=== PATIENT | female | born 1960 | race Hispanic/Latino ===

== ENCOUNTER 2016-06-07 13:24 | Emergency (ER) | payer MEDICARE ==
[~2016-06-07] VITALS: Ht 160 cm; Wt 102.1 kg
[~2016-06-07 13:24] MED LIST: AMOX875T2 PO; ATOR20TA66; CANA100T; INDO25CA; INSU100V5; INSU100V6; LINA5TAB; METF500T4; NF-ESOM40C; ONDA4TAB10; PARO40TA3; TRIA10.8 NSEACH
--- OUTSIDE RECORDS SUMMARY | 2016-06-07 13:39 | XMS REPORT ---
Author Author DAYRON CALERO Organization [employer] Address Unknown Phone Unavailable Care Team Providers Care Senior Python Developer Name Role Phone DAYRON CALERO CP Unavailable Allergies No Known Allergies Problems Problem Type Condition Code Onset Dates Condition Status Problem Vitamin D deficiency E55.9 Active Problem Gastroesophageal reflux disease without esophagitis K21.9 Active Problem Moderate episode of recurrent major depressive disorder F33.1 Active Problem Obesity (BMI 30-39.9) E66.9 Active Problem Rash R21 Active Problem Chondrocalcinosis M11.20 Active Problem Ringworm B35.9 Active Problem Osteoarthritis of right knee, unspecified osteoarthritis type M17.9 Active Problem jail 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 Active Problem Essential hypertension I10 Active Problem Type 2 diabetes mellitus without complications E11.9 Active Problem 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 E78.2 Active Medications Medication Code System Code Instructions Start Date End Date Status Dosage Esomeprazole Magnesium [facility] [address]-64 20 mg Orally Once a day 2 capsule Results No Known Results Summary Purpose [employer] Submission
[2016-06-07] MEDS ORDERED: TERB250T10 (14:46)
[2016-06-07] MEDS ORDERED: SERT25TA5 (14:46)
[2016-06-07] MEDS ORDERED: LISI10TA2 (14:46)
[2016-06-07] MEDS ORDERED: ESOM40CA52 (14:46)
[2016-06-07] MEDS ORDERED: PIOG45TA16 (14:46)
--- NOTE | 2016-06-07 14:57 | ED Integumentary General ---
General Chief Complaint: Allergic Reaction Stated Complaint: RASH Nursing Triage Note: SCATTERED WIDE SPREAD RASH X 3-4 WEEKS THAT IS NOT GETTING BETTER. HAS SEEN WHO HAS GIVEN HER A CREAM. PT ALSO HAS RINGWORM ON RIGHT BREAST AND CHEST THAT IS BEING TREATED. Source: patient Exam Limitations: no limitations History of Present Illness Time seen by provider: 14:52 Initial Comments To ER with a diffuse rash. The most pruritic region is on the dorsal aspect of the right forearm. She also has a rash to the chest and anterior torso that has been present for 10 years she states. She is on a topical cream she does not know the name of but states that it is only helping a little. The itching has become more intense over the past 2 days which prompted her visit here. She denies any fevers or chills, malaise, joint pains or body aches. Timing/Duration: getting worse Severity: moderate Associated Symptoms: denies symptoms Allergies and Home Medications Allergies Coded Allergies: lovastatin (Unverified Allergy, Unknown, 08/05/15) Home Medications Atorvastatin Calcium 20 Mg Tablet #30 (Reported) Esomeprazole Magnesium 40 Mg Cap #30 (Reported) Esomeprazole Magnesium 40 Mg Capsule. #30 (Reported) Indomethacin 25 Mg Capsule #60 (Reported) Insulin Determir 1,000 Units/10 Ml Soln #10 (Reported) Insulin Glargine,Hum.rec.anlog 100 Unit/1 Ml Vial #10 (Reported) Linagliptin 5 Mg Tablet #30 (Reported) Lisinopril 10 Mg Tablet #30 (Reported) Metformin HCl 500 Mg Tablet #150 (Reported) Ondansetron HCl 4 Mg Tablet #15 (Reported) Paroxetine HCl 40 Mg Tablet #90 (Reported) Pioglitazone HCl 45 Mg Tablet #30 (Reported) Sertraline HCl 25 Mg Tablet #30 (Reported) Terbinafine HCl 250 Mg Tablet #30 (Reported) Constitutional: see HPINo chills EENTM: see HPI Respiratory: no symptoms reported Cardiovascular: no symptoms reported Genitourinary: no symptoms reported Musculoskeletal: no symptoms reported Skin: see HPI Psychiatric/Neurological: No Symptoms Reported Endocrine: No Symptoms Reported Past Csswcae-Jqqood-Lbkozj Hx Patient Social History Alcohol Use: Denies Use Recreational Drug Use: No Smoking Status: Never a Smoker Recent Foreign Travel: No Contact w/Someone Who Travel: No Recent Infectious Disease Expo: No Recent Hopitalizations: No Seasonal Allergies Seasonal Allergies: No Surgeries HX Surgeries: Yes (carpal tunnel) Surgeries: Section Respiratory Hx Respiratory Disorders: No Cardiovascular Hx Cardiac Disorders: Yes Cardiac Disorders: Hypertension Neurological Hx Neurological Disorders: No Reproductive System Hx Reproductive Disorders: No Genitourinary Hx Genitourinary Disorders: No Gastrointestinal Hx Gastrointestinal Disorders: Yes Gastrointestinal Disorders: Gastroesophageal Reflux Musculoskeletal Hx Musculoskeletal Disorders: No Endocrine Hx Endocrine Disorders: Yes Endocrine Disorders: Diabetes, Insulin dep HEENT HX ENT Disorders: No Cancer Hx Cancer: No Psychosocial Hx Psychiatric Problems: No Physical Exam Vital Signs Vital Sign - Last 12Hours 06/07/16 14:40 Temp 97.9 Pulse 76 Resp 16 B/P 134/79 Pulse Ox 97 Capillary Refill : Less Than 3 Seconds General Appearance: WD/WN no apparent distress HEENT: PERRL/EOMI normal ENT inspection Neck: non-tender full range of motion Respiratory: no respiratory distress no accessory muscle use Neurologic/Psychiatric: alert normal mood/affect oriented x 3 Skin: normal color warm/dry Skin Problem Location: generalized Skin Problem Character: other (throughout the chest there are areas of what appear to be ringworm with erythematous borders, central clearing, scaling just behind the erythema at the border. These are annular type lesions) Comments The rash to the dorsal aspect of the right forearm is macular and elevated off the skin, intensely pruritic and appears different than the tinea appearance of the rash on the torso Progress/Results/Core Measures Results/Orders My Orders Orders-JULIO DO APRN Diphenhydramine Injection (Benadryl Inje (06/07/16 15:00) Maximus Prep (06/07/16 15:02) Medications Given in ED Current Medications Medications Dose Ordered Sig/Michelle Route Start Time Stop Time Status Last Admin Dose Admin Diphenhydramine HCl 25 mg ONCE ONCE IM 06/07/16 15:00 06/07/16 15:01 DC 06/07/16 15:17 25 MG Vital Signs/I&O Vital Sign - Last 12Hours 06/07/16 06/07/16 14:40 15:25 Temp 97.9 Pulse 76 77 Resp 16 16 B/P 134/79 Pulse Ox 97 96 Blood Pressure Mean: 97 Departure Communication Progress Notes She does have [facility]. A scraping of the leading edge of this annular rash has been done and sent to lab for potassium hydroxide stain. They were unable to visualize any hyphae. Given the 10 year history of symptoms in the absence of hyphae on potassium hydroxide staining alternative diagnoses to tinea should be considered. Impression Impression: Primary Impression: Rash and nonspecific skin eruption Additional Impression: Annular dermatitis Disposition: 01 HOME, SELF-CARE Condition: Stable Departure-Patient Inst. Decision time for Depature: 14:56 Referrals: [facility] (PCP/Family) Primary Care Physician Patient Instructions: Skin Rash Add. Discharge Instructions: 1. Use siug-fah-gaswkuv Benadryl as needed for itching 2. Continue your cream. Critical access hospital may wish to biopsy this lesion All discharge instructions reviewed with patient and/or family. Voiced understanding. JULIO DO APRN Jun 07, 2016 14:57 JULIO DO APRN Jun 07, 2016 14:57
[2016-06-07] MEDS ORDERED: diphenhydrAMINE 50 MG/ML INJ (BENADRYL) IM ONE (15:00)
[2016-06-07 15:25] VITALS: BP 130/77
== END 2016-06-07 15:26 | disposition home or self-care (01) ==
LOC: EDUNIT# 13:24 → ER 13:26
DX: R21 Rash and other nonspecific skin eruption (principal); I10 Essential (primary) hypertension; E11.9 Type 2 diabetes mellitus without complications; Z79.84 Long term (current) use of oral hypoglycemic drugs; Z79.4 Long term (current) use of insulin; Z79.899 Other long term (current) drug therapy
CPT/HCPCS: 87220; 96372; 99282

== ENCOUNTER 2016-11-12 17:15 | Emergency (ER) | payer MEDICARE ==
[~2016-11-12] VITALS: Ht 162.6 cm; Wt 103.4 kg
[~2016-11-12 17:15] MED LIST changes: +ESOM40CA52; +LISI10TA2; +PIOG45TA18; +SERT25TA5; +TERB250T10
--- NOTE | 2016-11-12 18:57 | Diagnostic Imaging Report ---
INDICATION: Right ankle injury. EXAMINATION: AP, oblique and lateral views of the right ankle were obtained. FINDINGS: There is an acute fracture of the distal fibula just below the level of the ankle joint, with horizontal orientation. There is no significant displacement. There are underlying degenerative changes with plantar and posterior calcaneal spurring and mild degenerative changes of the talocalcaneal joints. IMPRESSION: Acute distal fibular fracture without significant displacement. Some underlying degenerative findings are noted. Dictated by: Dictated on workstation # [id number]
[2016-11-12] MEDS ORDERED: HYDROcodone/APAP 5 MG/325 MG (LORTAB) TAB PO ONE (19:00)
[2016-11-12] MEDS ORDERED: HYDR-3812 PO (19:04)
--- NOTE | 2016-11-12 19:05 | ED Fall/Injury ---
General Chief Complaint: Lower Extremity Stated Complaint: FALL, R FOOT SWELLING Nursing Triage Note: STATES FOR X2 YEARS SHE HAS NUMBESS IN HER LEGS WHEN SHE WALKS. TODAY IT MADE HER FALL AND COMPLAINS OF PAIN RIGHT ANKLE. Source: patient Exam Limitations: no limitations History of Present Illness Time seen by provider: 18:00 Initial Comments This 56 -year-old woman presents to the emergency room with right ankle injury. She reports having numbness in her lower extremities for several years. She has diabetes and may have diabetic neuropathy. She reports this caused her to fall and rolled her right ankle this evening. She denies any other injuries other than minor abrasion to the left knee. Allergies and Home Medications Allergies Coded Allergies: lovastatin (Unverified Allergy, Unknown, 08/05/15) Home Medications Atorvastatin Calcium 20 Mg Tablet, #30 (Reported) Esomeprazole Magnesium 40 Mg Cap, #30 (Reported) Esomeprazole Magnesium 40 Mg Capsule.dr, #30 (Reported) Hydrocodone/Acetaminophen 1 Each Tablet, 1 EACH PO Q6H PRN for PAIN, #20 Prescribed by: ALEX JESUS on 11/12/16 190 Indomethacin 25 Mg Capsule, #60 (Reported) Insulin Determir 1,000 Units/10 Ml Soln, #10 (Reported) Insulin Glargine,Hum.rec.anlog 100 Unit/1 Ml Vial, #10 (Reported) Linagliptin 5 Mg Tablet, #30 (Reported) Lisinopril 10 Mg Tablet, #30 (Reported) Metformin HCl 500 Mg Tablet, #150 (Reported) Ondansetron HCl 4 Mg Tablet, #15 (Reported) Paroxetine HCl 40 Mg Tablet, #90 (Reported) Pioglitazone HCl 45 Mg Tablet, #30 (Reported) Sertraline HCl 25 Mg Tablet, #30 (Reported) Terbinafine HCl 250 Mg Tablet, #30 (Reported) Constitutional: no symptoms reported Eyes: No Symptoms Reported Ears, Nose, Mouth, Throat: no symptoms reported Respiratory: no symptoms reported Cardiovascular: no symptoms reported Gastrointestinal: no symptoms reported Genitourinary: no symptoms reported : No Musculoskeletal: see HPI Skin: no symptoms reported Psychiatric/Neurological: See HPI Past Gajteyb-Zfbpqa-Zaksdm Hx Patient Social History Alcohol Use: Denies Use Recreational Drug Use: No Smoking Status: Never a Smoker Recent Foreign Travel: No Contact w/Someone Who Travel: No Recent Infectious Disease Expo: No Recent Hopitalizations: No Seasonal Allergies Seasonal Allergies: No Surgeries HX Surgeries: Yes (carpal tunnel) Surgeries: Section Respiratory Hx Respiratory Disorders: No Cardiovascular Hx Cardiac Disorders: Yes Cardiac Disorders: High Cholesterol, Hypertension Neurological Hx Neurological Disorders: Yes Neurological Disorders: Neuropathy Reproductive System Hx Reproductive Disorders: No Genitourinary Hx Genitourinary Disorders: No Gastrointestinal Hx Gastrointestinal Disorders: Yes Gastrointestinal Disorders: Gastroesophageal Reflux Musculoskeletal Hx Musculoskeletal Disorders: No Endocrine Hx Endocrine Disorders: Yes Endocrine Disorders: Diabetes, Insulin dep HEENT HX ENT Disorders: No Cancer Hx Cancer: No Psychosocial Hx Psychiatric Problems: No Integumentary HX Skin/Integumentary Disorder: No Physical Exam Vital Signs Vital Sign - Last 12Hours 11/12/16 17:23 Temp 98.0 Pulse 88 Resp 16 B/P (MAP) 143/74 Pulse Ox 96 O2 Delivery Room Air Capillary Refill : Less Than 3 Seconds General Appearance: WD/WN, no apparent distress HEENT: PERRL/EOMI, normal ENT inspection, pharynx normal Neck: normal inspection Cardiovascular: regular rate, rhythm, no edema, no murmur Respiratory: lungs clear, normal breath sounds, no respiratory distress, no accessory muscle use Extremities: normal inspection, no pedal edema, other (right lateral ankle is swollen and ecchymotic with tenderness to palpation. Throat is normal. Distal sensation and capillary refill is intact. Pedal pulses are normal bilaterally) Neurologic/Psychiatric: fuse spooler II-XII nml as tested, no motor/sensory deficits, alert, normal mood/affect, oriented x 3 Skin: normal color, warm/dry, ecchymosis Tullos Coma Score Best Eye Response: (4) Open Spontaneously Best Verbal Response: (5) Oriented Best Motor Response: (6) Obeys Commands Tullos Total: 15 Progress/Results/Core Measures Results/Orders My Orders Orders - ALEX RASCON MD Ankle, Right, 3 Views (11/12/16 18:14) Hydrocodone/Apap 5/325 Tablet (Lortab 5 (11/12/16 19:00) Medications Given in ED Current Medications Medications Dose Ordered Sig/Michelle Route Start Time Stop Time Status Last Admin Dose Admin Acetaminophen/ Hydrocodone Bitart 1 tab ONCE ONCE PO 11/12/16 19:00 11/12/16 19:01 DC 11/12/16 19:13 1 TAB Vital Signs/I&O Vital Sign - Last 12Hours 11/12/16 11/12/16 17:23 19:15 Temp 98.0 98.0 Pulse 88 88 Resp 16 16 B/P (MAP) 143/74 Pulse Ox 96 96 O2 Delivery Room Air Blood Pressure Mean: 97 Progress Note : Progress Note X-ray revealed a right distal fibula fracture. Ankle was wrapped in an [place] wrap. A boot was applied and crutches were dispensed. Hydrocodone was given for pain. Diagnostic Imaging Diagonstic Imaging: Xray Plain Films/CT/US/NM/MRI: ankle Comments Ankle x-ray viewed by me and report reviewed. See report below: NAME: HARRY ELENA [facility] REC#: [id number] PT STATUS: DEP ER : 1960 PHYSICIAN: ALEX RASCON MD ADMIT DATE: 11/12/16/ER Signed Date of Exam: 11/12/16 ANKLE, RIGHT, 3 VIEWS INDICATION: Right ankle injury. EXAMINATION: AP, oblique and lateral views of the right ankle were obtained. FINDINGS: There is an acute fracture of the distal fibula just below the level of the ankle joint, with horizontal orientation. There is no significant displacement. There are underlying degenerative changes with plantar and posterior calcaneal spurring and mild degenerative changes of the talocalcaneal joints. IMPRESSION: Acute distal fibular fracture without significant displacement. Some underlying degenerative findings are noted. Dictated by: Dictated on workstation # [id number] Dict: 11/12/161848 Trans: 11/12/161912 Interpreted by: FABIENNE PA MD Electronically signed by: FABIENNE PA MD 11/12/161912 Departure Impression Impression: Primary Impression: Fracture of distal fibula Qualified Codes: S82.831A - Other fracture of upper and lower end of right fibula, initial encounter for closed fracture Disposition: 01 HOME, SELF-CARE Condition: Improved Departure-Patient Inst. Decision time for Depature: 19:00 Referrals: [facility] (PCP/Family) Primary Care Physician MICHELET VIERA MICHAEL P MD Patient Instructions: Ankle Fracture (DC) Add. Discharge Instructions: Rest, icing in 20 minute intervals, and elevation should help with pain and swelling. Use hydrocodone as prescribed for pain. Use of a stool softener such as Colace while on narcotic pain medications will help prevent constipation. Follow-up with an orthopedic surgeon as soon as possible. You may contact [facility] for orthopedic follow-up or contact an orthopedic doctor of your choice. Some options are listed below. Use the boot as much as possible, especially when up and active. Use the crutches to help with weightbearing. Return to care if you have other problems or concerns. All discharge instructions reviewed with patient and/or family. Voiced understanding. Scripts Hydrocodone/Acetaminophen (Hydrocodon -Acetaminophen 5-325) 1 Each Tablet 1 EACH PO Q6H Y for PAIN, #20 TAB Prov: ALEX RASCON MD 11/12/16 Copy Copies To 1: MEÑO INFANTE JOSHUA T MD Nov 12, 2016 19:04
[2016-11-12 19:15] VITALS: BP 143/74
== END 2016-11-12 19:14 | disposition home or self-care (01) ==
LOC: EDUNIT# 17:15 → ER 17:17
DX: S82.831A Other fracture of upper and lower end of right fibula, initial encounter for closed fracture (principal); E11.40 Type 2 diabetes mellitus with diabetic neuropathy, unspecified; K21.9 Gastro-esophageal reflux disease without esophagitis; E78.00 Pure hypercholesterolemia, unspecified; I10 Essential (primary) hypertension; Z79.84 Long term (current) use of oral hypoglycemic drugs; Z79.4 Long term (current) use of insulin; W18.30XA Fall on same level, unspecified, initial encounter
CPT/HCPCS: 73610; 99283

== ENCOUNTER → 2017-10-26 | Outpatient (CLI) | payer MEDICARE, OTHER ==
[~2017-10-26] MED LIST changes: +ACHD5005 PO; -INDO25CA; +INDO25CA15; -METF500T4; +METF500T5; -PIOG45TA18; +PIOG45TA65; -TERB250T10; +TERB250T16
--- NOTE | 2017-10-26 13:17 | Diagnostic Imaging Report ---
PROCEDURE: CT urinary tract, rule out kidney stone. TECHNIQUE: Multiple contiguous axial images were obtained through the abdomen and pelvis without the use of intravenous contrast. INDICATION: Increasing right flank pain for three days. COMPARISON: No prior studies are available for comparison. FINDINGS: The lung bases are clear. The liver is unremarkable. There appears to be a small stone within the gallbladder. No bile duct dilatation is seen. The pancreas and spleen are unremarkable. No adrenal mass is identified. The right kidney does contain a 2.3 cm fat-containing mass in the upper pole, suggestive of an angiomyolipoma. No renal calculi or hydronephrosis is identified. The aorta is nonaneurysmal. The small and large bowel loops are normal in caliber. Bladder and uterus are unremarkable. Note is made of a small fat-containing umbilical hernia. There is no ascites. IMPRESSION: 1. Cholelithiasis. 2. Fat-containing umbilical hernia. 3. No evidence of urinary tract calculi or obstruction. 4. 2.3 cm fat-containing right upper pole renal mass, suggestive of an angiomyolipoma. Dictated by: Dictated on workstation # [id number]
== END ==
LOC: RAD 12:29
PROVIDERS: ATTEND Nurse Practitioner Family
DX: K80.20 Calculus of gallbladder without cholecystitis without obstruction (principal); K42.9 Umbilical hernia without obstruction or gangrene; N28.89 Other specified disorders of kidney and ureter
CPT/HCPCS: 74176

== ENCOUNTER 2018-01-01 08:13 | Emergency (ER) | payer MEDICARE, MEDICAID ==
[~2018-01-01] VITALS: Ht 162.6 cm; Wt 95.3 kg
[~2018-01-01 08:13] MED LIST changes: +METF-397; -METF500T5
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
--- OUTSIDE RECORDS SUMMARY | 2018-01-01 08:22 | XMS REPORT ---
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
--- OUTSIDE RECORDS SUMMARY | 2018-01-01 08:22 | XMS REPORT ---
Author Author DAYRON CALERO Organization [facility] Address [address] [place] [address] Care Team Providers Care Welding Machine Operator Gas Name Role Phone ABDIAS DAYRON Unavailable PROBLEMS Type Condition ICD9-CM Code SDQ31-TO Code Onset Dates Condition Status SNOMED Code Problem long term 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 Active 711001958 Problem Moderate episode of recurrent major depressive disorder F33.1 Active 26656621 Problem 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 E78.2 Active 955893623 Problem Gastroesophageal reflux disease without esophagitis K21.9 Active 322172430 Problem Obesity (BMI 30-39.9) E66.9 Active 357936283 Problem Essential hypertension I10 Active 51392222 Problem Vitamin D deficiency E55.9 Active 51521720 Problem Type 2 diabetes mellitus with diabetic neuropathy, unspecified E11.40 Active 85641458 Problem Polyneuropathy associated with underlying disease G63 Active 692570575 Problem Allergic contact dermatitis, unspecified trigger L23.9 Active 622477291 Problem Chondrocalcinosis M11.20 Active 045038607 Problem Primary osteoarthritis of both knees M17.0 Active 496118402 Problem Non compliance with medical treatment Z91.19 Active 7882005 ALLERGIES Unknown Allergies SOCIAL HISTORY No smoking Hx information available PLAN OF CARE VITAL SIGNS MEDICATIONS Unknown Medications RESULTS No Results PROCEDURES No Known procedures IMMUNIZATIONS No Known Immunizations
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
--- OUTSIDE RECORDS SUMMARY | 2018-01-01 08:22 | XMS REPORT ---
Author Author [facility]ITNEY [facility] Address [address] [place] [address] Care Team Providers Care Bonbon Cream Warmer Name Role Phone CLARITA WHITNEY Unavailable PROBLEMS Type Condition ICD9-CM Code EII09-AL Code Onset Dates Condition Status SNOMED Code Problem Rash R21 Active 229262937 Problem Moderate episode of recurrent major depressive disorder F33.1 Active 40348021 Problem Vitamin D deficiency E55.9 Active 66105737 Assessment Right otitis media, unspecified chronicity, unspecified otitis media type H66.91 Dec, Active 58978222 Problem Obesity (BMI 30-39.9) E66.9 Active 489994868 Problem Ringworm B35.9 Active 07537955 Problem Type 2 diabetes mellitus without complications E11.9 Active 693086749 Problem Essential hypertension I10 Active 35059094 Problem Gastroesophageal reflux disease without esophagitis K21.9 Active 013971797 Problem 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 E78.2 Active 405312788 Problem 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 Active 774706866 ALLERGIES Unknown Allergies SOCIAL HISTORY No smoking Hx information available PLAN OF CARE VITAL SIGNS Height 64 in 2015-12-29 Weight 215 lbs 2015-12-29 Heart Rate 84 bpm 2015-12-29 Respiratory Rate 20 2015-12-29 BMI 36.90 kg/m2 2015-12-29 Blood pressure systolic 136 mmHg 2015-12-29 Blood pressure diastolic 74 mmHg 2015-12-29 MEDICATIONS Medication Instructions Dosage Frequency Start Date End Date Duration Status Actos 45 MG Orally Once a day 1 tablet 24h Active Paroxetine HCl 40 mg Orally Once a day 1 tablet in the morning 24h Active Atorvastatin Calcium 20 mg Orally Once a day 1 tablet 24h Active Lisinopril 10 mg Orally Once a day 1 tablet 24h Active BD Insulin Syringe Ultrafine 31G X 15/64 as directed Sep, Active Amoxicillin 500 MG Orally every 12 hrs 2 capsules 12h Dec,Dec 10 day(s) Active Cholecalciferol 2000 UNIT Orally Once a day 1 capsule 24h Oct, Dec, 30 day(s) Active Indomethacin 25 MG Orally Twice a day 1 capsule with food or milk 12h Dec, Jan, 30 day(s) Active Accu-Chek Compact Plus Care as directed Sep, Active Metformin HCl 500 MG Orally with breakfast, 1 tablet at midday, & 2 tablets with dinner 2 tablets Active Tradjenta 5 mg Orally Once a day 1 tablet 24h Oct, Active Accu-Chek Softclix Lancets as directed Sep, Active Fluconazole 150 MG Orally once weekly x 4 weeks 1 tablet Dec, Active Accu-Chek Compact Plus as directed Sep, Active Triamcinolone Acetonide 0.1 % Externally Twice a day apply thin layer to rash 12h Sep, Active Lantus 100 UNIT/ML Subcutaneous Once a day 36 units daily 24h Oct, Active Esomeprazole Magnesium 40 mg Orally Once a day 1 capsule 24h Active Ketoconazole 2 % Externally twice a day apply thin layer to the areas on chest and back 12h Oct, Active RESULTS No Results PROCEDURES Procedure Date Ordered Related Diagnosis Body Site Office Visit, Est Pt., Level 3 Dec 29, 2015 IMMUNIZATIONS No Known Immunizations
--- OUTSIDE RECORDS SUMMARY | 2018-01-01 08:23 | XMS REPORT ---
Author ZACHARY Mckee [facility] eClinicalWorks Address Unknown Phone Unavailable Care Team Providers Care Floating Labor Gang Supervisor Name Role Phone ZACHARY DARLING CP Unavailable Allergies, Adverse Reactions, Alerts Substance Reaction Event Type Lovastatin Info Not Available Drug Allergy Problems Problem Type Condition Code Onset Dates Condition Status Problem Rash R21 Active Problem Moderate episode of recurrent major depressive disorder F33.1 Active Problem Vitamin D deficiency E55.9 Active Assessment Viral gastroenteritis A08.4 Active Problem Obesity (BMI 30-39.9) E66.9 Active Problem Ringworm B35.9 Active Problem Type 2 diabetes mellitus without complications E11.9 Active Problem Chondrocalcinosis M11.20 Active Problem Essential hypertension I10 Active Problem Gastroesophageal reflux disease without esophagitis K21.9 Active Problem 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 E78.2 Active Problem 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 inspector 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 Active Medications Medication Code System Code Instructions Start Date End Date Status Dosage Mometasone Furoate [facility] [address]-15 0.1 % Externally Once a day apply once daily as needed for ear itching and flaking Fluocinonide-E [facility] [address]-58 0.05 % Externally 2 times a day apply sparingly to rash on breast Paroxetine HCl [facility] [address]-78 40 mg Orally Once a day 1 tablet in the morning Actos [facility] [address]-27 45 MG Orally Once a day 1 tablet Esomeprazole Magnesium [facility] [address]-92 40 mg Orally Once a day 1 capsule Accu-Chek Compact Plus [facility] [address]-47 In Vitro October 02, 2015 as directed Zofran [facility] [address]-52 4 MG Orally every 8 hours as needed Jan 29, 2016 1 tablets Atorvastatin Calcium [facility] [address]-04 20 mg Orally Once a day 1 tablet Theraflu Cold/Cough Daytime [facility] [address]-14 10-20 MG Orally every 4 hrs 1 strip on the tongue and allow to dissolve as needed Ciclopirox [facility] [address]-73 0.77 % Externally Twice a day Jan 26, 2016 apply thin layer to areas twice a day Metformin HCl [facility] [address]-06 500 MG Orally with breakfast, 1 tablet at midday, & 2 tablets with dinner 2 tablets Tradjenta [facility] [address]-40 5 mg Orally Once a day November 06, 2015 1 tablet Accu-Chek Softclix Lancets [facility] [address]-80 October 02, 2015 as directed Accu-Chek Compact Plus Care [facility] [address]-56 October 02, 2015 as directed Lantus [facility] [address]-41 100 UNIT/ML Subcutaneous Once a day November 06, 2015 36 units daily Terbinafine HCl [facility] [address]-03 250 MG Orally Once a day Jan 26, 2016 1 tablet BD Insulin Syringe Ultrafine [facility] 8290-089082 31G X 15/64 October 02, 2015 as directed Lisinopril [facility] [address]-29 10 mg Orally Once a day 1 tablet Fluconazole [facility] [address]-37 150 MG Orally once weekly x 4 weeks Dec 25, 2015 1 tablet Procedures Procedure Coding System Code Date Office Visit, Est Pt., Level 3 CPT-4 86817 Jan 29, 2016 [facility] VISIT ESTABLISHED PATIENT CPT-4 G0467 Jan 29, 2016 Vital Signs Date/Time: Jan 29, 2016 Cardiac Monitoring Heart Rate 92 bpm Weight 217.4 lbs Height 64 in BMI 37.31 Index Blood Pressure Diastolic 78 mmHg Blood Pressure Systolic 116 mmHg Results No Known Results Summary Purpose eClinicalWorks Submission
--- OUTSIDE RECORDS SUMMARY | 2018-01-01 08:23 | XMS REPORT ---
Author Author AL RAÚL Organization [facility] Address [address] [place] [address] Care Team Providers Care Kettle Cleaner Name Role Phone ALTASHA GONZALEZHANY Unavailable PROBLEMS Type Condition ICD9-CM Code CKR62-SK Code Onset Dates Condition Status SNOMED Code Problem assisted 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 Active 167146509 Problem Moderate episode of recurrent major depressive disorder F33.1 Active 69542874 Problem 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 E78.2 Active 021897740 Problem Gastroesophageal reflux disease without esophagitis K21.9 Active 936484342 Problem Obesity (BMI 30-39.9) E66.9 Active 750943194 Problem Essential hypertension I10 Active 57106026 Problem Vitamin D deficiency E55.9 Active 33765862 Problem Type 2 diabetes mellitus with diabetic neuropathy, unspecified E11.40 Active 66087466 Problem Polyneuropathy associated with underlying disease G63 Active 603330415 Problem Allergic contact dermatitis, unspecified trigger L23.9 Active 522034910 Problem Chondrocalcinosis M11.20 Active 846057907 Problem Primary osteoarthritis of both knees M17.0 Active 607660475 Problem Non compliance with medical treatment Z91.19 Active 7307928 ALLERGIES Substance Reaction Event Type Date Status Lovastatin Unknown Drug Allergy Apr, Active SOCIAL HISTORY No smoking Hx information available PLAN OF CARE Activity Details Follow Up 4 Weeks with Cam Lindquist Reason:r/u rash VITAL SIGNS Height 64 in 2016-05-17 Weight 215.0 lbs 2016-05-17 Temperature 98.0 degrees Fahrenheit 2016-05-17 Heart Rate 78 bpm 2016-05-17 Respiratory Rate 18 2016-05-17 BMI 36.90 kg/m2 2016-05-17 Blood pressure systolic 146 mmHg 2016-05-17 Blood pressure diastolic 80 mmHg 2016-05-17 MEDICATIONS Medication Instructions Dosage Frequency Start Date End Date Duration Status Accu-Chek Compact Plus Care as directed Sep, Active Accu-Chek Compact Plus as directed Sep, Active Actos 45 MG Orally Once a day 1 tablet 24h Active Accu-Chek Softclix Lancets as directed Sep, Active Lisinopril 10 mg Orally Once a day 1 tablet 24h Active Nexium 40 MG Orally Once a day 1 capsule 24h Mar, 30 day(s) Active Lantus 100 UNIT/ML Subcutaneous Once a day 36 units daily 24h Oct, Active Atorvastatin Calcium 20 mg Orally Once a day 1 tablet 24h Active Tradjenta 5 mg Orally Once a day 1 tablet 24h Oct, Active Metformin HCl 500 MG Orally with breakfast, 1 tablet at midday, & 2 tablets with dinner 2 tablets Active Fluconazole 150 MG Orally once weekly 1 tablet Apr, May, 28 days Active BD Insulin Syringe Ultrafine 31G X 15/64 as directed Sep, Active Sertraline HCl 25 MG Orally Once a day 1 tablet daily at bedtime 24h Mar 30 days Active Ibuprofen 800 MG Orally Three times a day 1 tablet 8h Mar,Jun 90 days Active RESULTS Name Result Date Reference Range CBC 2016-05-17 WBC 11.8 3.4-10.8 RBC 4.96 3.77-5.28 Hemoglobin 13.4 11.1-15.9 Hematocrit 41.3 34.0-46.6 MCV 83 79-97 MCH 27.0 26.6-33.0 MCHC 32.4 31.5-35.7 RDW 13.7 12.3-15.4 Platelets 313 150-379 Neutrophils 65 Lymphs 28 Monocytes 6 Eos 1 Basos 0 Neutrophils (Absolute) 7.7 1.4-7.0 Lymphs (Absolute) 3.3 0.7-3.1 Monocytes(Absolute) 0.7 0.1-0.9 Eos (Absolute) 0.2 0.0-0.4 Baso (Absolute) 0.0 0.0-0.2 Immature Granulocytes 0 Immature Grans (Abs) 0.0 0.0-0.1 LIVER PANEL (LFT) 2016-05-17 Protein, Total, Serum 7.0 6.0-8.5 Albumin, Serum 4.1 3.5-5.5 Bilirubin, Total <0.2 0.0-1.2 Bilirubin, Direct 0.09 0.00-0.40 Alkaline Phosphatase, S 111 39-117 AST (SGOT) 56 0-40 ALT (SGPT) 59 0-32 PROCEDURES Procedure Date Ordered Related Diagnosis Body [facility], 2016 [facility] VISIT ESTABLISHED PATIENT May 17, 2016 CHUCK, ROUTINE* May 17, 2016 Office Visit, Est Pt., Level 3 May 17, 2016 IMMUNIZATIONS No Known Immunizations
--- OUTSIDE RECORDS SUMMARY | 2018-01-01 08:23 | XMS REPORT ---
Author Author RAÚL MELENDEZ Organization [facility] Address [address] [place] [address] Care Team Providers Care Asian Studies Professor Name Role Phone RAÚL MELENDEZ Unavailable PROBLEMS Type Condition ICD9-CM Code IZX13-KO Code Onset Dates Condition Status SNOMED Code Problem terminal supervisor 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 Active 360517099 Problem Moderate episode of recurrent major depressive disorder F33.1 Active 62136371 Problem 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 E78.2 Active 985721927 Problem Gastroesophageal reflux disease without esophagitis K21.9 Active 600671894 Problem Obesity (BMI 30-39.9) E66.9 Active 432716505 Problem Essential hypertension I10 Active 90441564 Problem Vitamin D deficiency E55.9 Active 95122539 Problem Type 2 diabetes mellitus with diabetic neuropathy, unspecified E11.40 Active 89280869 Problem Polyneuropathy associated with underlying disease G63 Active 881309518 Problem Allergic contact dermatitis, unspecified trigger L23.9 Active 579986809 Problem Chondrocalcinosis M11.20 Active 301074820 Problem Primary osteoarthritis of both knees M17.0 Active 355294873 Problem Non compliance with medical treatment Z91.19 Active 9350794 ALLERGIES Unknown Allergies SOCIAL HISTORY No smoking Hx information available PLAN OF CARE VITAL SIGNS MEDICATIONS Unknown Medications RESULTS No Results PROCEDURES No Known procedures IMMUNIZATIONS No Known Immunizations
--- OUTSIDE RECORDS SUMMARY | 2018-01-01 08:23 | XMS REPORT ---
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 Active 427161518 Problem Moderate episode of recurrent major depressive disorder F33.1 Active 18561774 Problem 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 E78.2 Active 608023016 Problem Gastroesophageal reflux disease without esophagitis K21.9 Active 601814817 Problem Obesity (BMI 30-39.9) E66.9 Active 854634573 Problem Essential hypertension I10 Active 10584738 Problem Vitamin D deficiency E55.9 Active 50662710 Problem Type 2 diabetes mellitus with diabetic neuropathy, unspecified E11.40 Active 27589355 Problem Polyneuropathy associated with underlying disease G63 Active 595434804 Problem Allergic contact dermatitis, unspecified trigger L23.9 Active 578731455 Problem Chondrocalcinosis M11.20 Active 706742047 Problem Primary osteoarthritis of both knees M17.0 Active 758122267 Problem Non compliance with medical treatment Z91.19 Active 5468161 ALLERGIES Substance Reaction Event Type Date Status Lovastatin Unknown Drug Allergy May, Active SOCIAL HISTORY Never Assessed PLAN OF CARE Activity Details Follow Up 4 Weeks Reason:depression VITAL SIGNS Height 64 in 2016-06-14 Weight 215.9 lbs 2016-06-14 Temperature 97.4 degrees Fahrenheit 2016-06-14 Heart Rate 88 bpm 2016-06-14 Respiratory Rate 18 2016-06-14 BMI 37.06 kg/m2 2016-06-14 Blood pressure systolic 122 mmHg 2016-06-14 Blood pressure diastolic 78 mmHg 2016-06-14 MEDICATIONS Medication Instructions Dosage Frequency Start Date End Date Duration Status Triamcinolone Acetonide 0.025 % Externally Twice a day apply thin layer to chest and legs 12h May, 10 days Active Trazodone HCl 50 mg Orally Once a day 1 tablet at bedtime as needed 24h May, 30 day(s) Active Glimepiride 2 MG Orally Once a day 1 tablet 24h May, 90 days Active Actos 45 MG Orally Once a day 1 tablet 24h 90 days Active Esomeprazole Magnesium 20 mg Orally Once a day 2 capsule 24h 90 days Active BD Insulin Syringe Ultrafine 31G X 15/64 subcutaneously Once a day as directed 24h Sep, 30 days Active Nexium 40 MG Orally Once a day 1 capsule 24h 30 Active Atorvastatin Calcium 20 mg Orally Once a day 1 tablet 24h 90 days Active Accu-Chek Compact Plus Care as directed Sep, Active Accu-Chek Compact Plus as directed Sep, Active Terbinafine HCl 250 MG Orally Once a day 1 tablet 24h 30 Active Lisinopril 10 mg Orally Once a day 1 tablet 24h 90 days Active Lantus 100 UNIT/ML Subcutaneous Once a day 40 units daily 24h Oct, 30 days Active Accu-Chek Softclix Lancets as directed Sep, Active Metformin HCl 500 mg Orally with breakfast, 1 tablet at midday, & 2 tablets with dinner 2 tablets 90 days Active Sertraline HCl 25 MG Orally Once a day 1 tablet daily at bedtime 24h 30 Active RESULTS Name Result Date Reference Range A1C (IN HOUSE) 2016-06-14 A1C IN HOUSE 11.5 4.3 - 5.6 % Previous A1c 9.0 Lot [id number] Exp date MICROALBUMIN, URINE (IN HOUSE) 2016-06-14 MICROALBUMIN Normal Lot # [id number] Exp date 11/2016 Clarity Clear Color Yellow ALB 10mg/L CRE 50mg/dL A:C (IN HOUSE) <30mg/g Control Control Lot # Exp date PROCEDURES Procedure Date Ordered Result Body Site GLYCATED HEMOGLOBIN TEST Jun 14, 2016 MICROALBUMIN, SEMIQUANT Jun 14, 2016 [facility] VISIT ESTABLISHED PATIENT Jun 14, 2016 IMMUNIZATIONS No Known Immunizations MEDICAL (GENERAL) HISTORY Type Description Date Medical History Diabetes Type 2 Medical History Hypertension Medical History Hyperlipidemia Medical History Depression Medical History acid reflux Medical History vitamin D deficiency Medical History Right fracture of distal fibula Surgical History 2 C-Sections Hospitalization History x2
--- OUTSIDE RECORDS SUMMARY | 2018-01-01 08:23 | XMS REPORT ---
Author Author DAYRON CALERO Organization [facility] Address [address] [place] [address] Care Team Providers Care Scene And Lighting Design Lecturer Name Role Phone CALERONINO CarringtonELE Unavailable PROBLEMS Type Condition ICD9-CM Code [id number] Code Onset Dates Condition Status SNOMED Code Problem Rash R21 Active 110899141 Problem Moderate episode of recurrent major depressive disorder F33.1 Active 08327253 Problem Vitamin D deficiency E55.9 Active 62188248 Assessment Tinea corporis B35.4 Dec, Active 95267871 Assessment Chondrocalcinosis M11.20 Dec, Active 340461966 Problem Obesity (BMI 30-39.9) E66.9 Active 569896905 Problem Ringworm B35.9 Active 72845875 Problem Type 2 diabetes mellitus without complications E11.9 Active 944962812 Problem Essential hypertension I10 Active 48670823 Problem Gastroesophageal reflux disease without esophagitis K21.9 Active 769110449 Problem 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 E78.2 Active 530181399 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 Active 218108188 ALLERGIES Substance Reaction Event Type Date Status Lovastatin Unknown Drug Allergy Dec, Active SOCIAL HISTORY No smoking Hx information available PLAN OF CARE VITAL SIGNS Height 64 in 2015-12-25 Weight 218.0 lbs 2015-12-25 Heart Rate 80 bpm 2015-12-25 Respiratory Rate 22 2015-12-25 BMI 37.42 kg/m2 2015-12-25 Blood pressure systolic 140 mmHg 2015-12-25 Blood pressure diastolic 82 mmHg 2015-12-25 MEDICATIONS Medication Instructions Dosage Frequency Start Date End Date Duration Status BD Insulin Syringe Ultrafine 31G X 15 as directed Sep, Active Tradjenta 5 mg Orally Once a day 1 tablet 24h Oct, Active Lisinopril 10 mg Orally Once a day 1 tablet 24h Active Actos 45 MG Orally Once a day 1 tablet 24h Active Paroxetine HCl 40 mg Orally Once a day 1 tablet in the morning 24h Active Triamcinolone Acetonide 0.1 % Externally Twice a day apply thin layer to rash 12h Sep, Active Indomethacin 25 MG Orally Twice a day 1 capsule with food or milk 12h Dec, Jan, 30 day(s) Active Calmoseptine 0.44-20.625 % Externally Once a day apply thin layer to area under breast daily 24h Oct, Active Accu-Chek Compact Plus as directed Sep, Active Cholecalciferol 2000 UNIT Orally Once a day 1 capsule 24h Oct, Dec, 30 day(s) Active Metformin HCl 500 MG Orally with breakfast, 1 tablet at midday, & 2 tablets with dinner 2 tablets Active Accu-Chek Compact Plus Care as directed Sep, Active Ketoconazole 2 % Externally twice a day apply thin layer to the areas on chest and back 12h Oct, Active Atorvastatin Calcium 20 mg Orally Once a day 1 tablet 24h Active Esomeprazole Magnesium 40 mg Orally Once a day 1 capsule 24h Active Lantus 100 UNIT/ML Subcutaneous Once a day 36 units daily 24h Oct, Active Accu-Chek Softclix Lancets as directed Sep, Active Fluconazole 150 MG Orally once weekly x 4 weeks 1 tablet Dec, Active RESULTS Name Result Date Reference Range PHOSPHORUS 2015-12-25 Phosphorus, Serum 4.2 2.5-4.5 PTH (INTACT) 2015-12-25 PTH, Intact 38 15-65 IRON + TIBC 2015-12-25 Iron Bind.Cap.(TIBC) 441 250-450 UIBC 395 131-425 Iron, Serum 46 27-159 Iron Saturation 10 15-55 MAGNESIUM, SERUM 2015-12-25 Magnesium, Serum 1.9 1.6-2.3 FERRITIN, SERUM 2015-12-25 Ferritin, Serum 27 15-150 CMP 2015-12-25 Glucose, Serum 159 65-99 BUN 10 6-24 Creatinine, Serum 0.64 0.57-1.00 eGFR If NonAfricn Am 102 >59 eGFR If Africn Am 118 >59 BUN/Creatinine Ratio 16 9-23 Sodium, Serum 139 134-144 Potassium, Serum 4.5 3.5-5.2 Chloride, Serum 95 97-108 Carbon Dioxide, Total 27 18-29 Calcium, Serum 9.5 8.7-10.2 Protein, Total, Serum 7.9 6.0-8.5 Albumin, Serum 4.7 3.5-5.5 Globulin, Total 3.2 1.5-4.5 A/G Ratio 1.5 1.1-2.5 Bilirubin, Total 0.3 0.0-1.2 Alkaline Phosphatase, S 98 39-117 AST (SGOT) 29 0-40 ALT (SGPT) 33 0-32 PROCEDURES Procedure Date Ordered Related Diagnosis [facility] VENIPUNCT, ROUTINE* Dec 25, 2015 Office Visit, Est Pt., Level 3 Dec 25, 2015 [facility] VISIT ESTABLISHED PATIENT Dec 25, 2015 IMMUNIZATIONS No Known Immunizations
--- OUTSIDE RECORDS SUMMARY | 2018-01-01 08:23 | XMS REPORT ---
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 Active 655758764 Problem Moderate episode of recurrent major depressive disorder F33.1 Active 40151957 Problem 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 E78.2 Active 205355336 Problem Gastroesophageal reflux disease without esophagitis K21.9 Active 986172171 Problem Obesity (BMI 30-39.9) E66.9 Active 645157481 Problem Essential hypertension I10 Active 05237309 Problem Vitamin D deficiency E55.9 Active 20146787 Problem Type 2 diabetes mellitus with diabetic neuropathy, unspecified E11.40 Active 07154437 Problem Polyneuropathy associated with underlying disease G63 Active 455448316 Problem Allergic contact dermatitis, unspecified trigger L23.9 Active 958481145 Problem Chondrocalcinosis M11.20 Active 705319582 Problem Primary osteoarthritis of both knees M17.0 Active 775766902 Problem Non compliance with medical treatment Z91.19 Active 0199014 ALLERGIES No Information SOCIAL HISTORY Never Assessed PLAN OF CARE VITAL SIGNS MEDICATIONS Medication Instructions Dosage Frequency Start Date End Date Duration Status Glucocard Expression Test - In Vitro 2 times a day as directed Jun, 25 days Active RESULTS No Results PROCEDURES No Known procedures IMMUNIZATIONS No Known Immunizations MEDICAL (GENERAL) HISTORY Type Description Date Medical History Diabetes Type 2 Medical History Hypertension Medical History Hyperlipidemia Medical History Depression Medical History acid reflux Medical History vitamin D deficiency Medical History Right fracture of distal fibula Surgical History 2 C-Sections Hospitalization History x2
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
--- OUTSIDE RECORDS SUMMARY | 2018-01-01 08:23 | XMS REPORT ---
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 Active 916023376 Problem Moderate episode of recurrent major depressive disorder F33.1 Active 74509231 Problem 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 E78.2 Active 101563263 Problem Gastroesophageal reflux disease without esophagitis K21.9 Active 433995807 Problem Obesity (BMI 30-39.9) E66.9 Active 041753314 Problem Essential hypertension I10 Active 56822989 Problem Vitamin D deficiency E55.9 Active 71812160 Problem Type 2 diabetes mellitus with diabetic neuropathy, unspecified E11.40 Active 75460935 Problem Polyneuropathy associated with underlying disease G63 Active 761343387 Problem Allergic contact dermatitis, unspecified trigger L23.9 Active 746292752 Problem Chondrocalcinosis M11.20 Active 720880280 Problem Primary osteoarthritis of both knees M17.0 Active 256291428 Problem Non compliance with medical treatment Z91.19 Active 2174184 ALLERGIES No Information SOCIAL HISTORY Never Assessed PLAN OF CARE VITAL SIGNS MEDICATIONS Medication Instructions Dosage Frequency Start Date End Date Duration Status Metformin HCl 500 MG Orally with breakfast, 1 tablet at midday, & 2 tablets with dinner 2 tablets 30 days Active RESULTS No Results PROCEDURES [...]
--- OUTSIDE RECORDS SUMMARY | 2018-01-01 08:24 | XMS REPORT ---
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 Active 483024021 Problem Obesity (BMI 30-39.9) E66.9 Active 778485978 Problem Vitamin D deficiency E55.9 Active 22166300 Problem Moderate episode of recurrent major depressive disorder F33.1 Active 96368663 Problem Gastroesophageal reflux disease without esophagitis K21.9 Active 587445306 Problem Polyneuropathy associated with underlying disease G63 Active 746354975 Problem Type 2 diabetes mellitus with diabetic neuropathy, unspecified E11.40 Active 34327997 Problem Non compliance with medical treatment Z91.19 Active 5091250 Problem Chondrocalcinosis M11.20 Active 327657962 Problem Primary osteoarthritis of both knees M17.0 Active 249149574 Problem Allergic contact dermatitis, unspecified trigger L23.9 Active 830923849 ALLERGIES Unknown Allergies SOCIAL HISTORY No smoking Hx information available PLAN OF CARE VITAL SIGNS MEDICATIONS Medication Instructions Dosage Frequency Start Date End Date Duration Status Esomeprazole Magnesium 20 mg Orally Once a day 2 capsule 24h 7 days Active Nexium 40 MG Orally Once a day 1 capsule 24h Mar, 30 day(s) Active RESULTS No Results PROCEDURES No Known procedures IMMUNIZATIONS No Known Immunizations
--- OUTSIDE RECORDS SUMMARY | 2018-01-01 08:24 | XMS REPORT ---
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 Active 078982089 Problem Moderate episode of recurrent major depressive disorder F33.1 Active 32267995 Problem 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 E78.2 Active 925611576 Problem Gastroesophageal reflux disease without esophagitis K21.9 Active 849473778 Problem Obesity (BMI 30-39.9) E66.9 Active 909031536 Problem Essential hypertension I10 Active 69430801 Problem Vitamin D deficiency E55.9 Active 69451727 Problem Type 2 diabetes mellitus with diabetic neuropathy, unspecified E11.40 Active 78790577 Problem Polyneuropathy associated with underlying disease G63 Active 879371961 Problem Allergic contact dermatitis, unspecified trigger L23.9 Active 804924618 Problem Chondrocalcinosis M11.20 Active 044947327 Problem Primary osteoarthritis of both knees M17.0 Active 089858273 Problem Non compliance with medical treatment Z91.19 Active 4829191 ALLERGIES No Information SOCIAL HISTORY Never Assessed PLAN OF CARE VITAL SIGNS MEDICATIONS Medication Instructions Dosage Frequency Start Date End Date Duration Status Accu-Chek Softclix Lancets in vitro 2 times a day as directed 12h Sep, 90 days Active BD Insulin Syringe Ultrafine 31G X 15/64 subcutaneously Once a day as directed 24h Sep, 90 days Active RESULTS No Results PROCEDURES [...]
--- OUTSIDE RECORDS SUMMARY | 2018-01-01 08:24 | XMS REPORT ---
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 Active 077860363 Problem Moderate episode of recurrent major depressive disorder F33.1 Active 59913806 Problem 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 E78.2 Active 350574857 Problem Gastroesophageal reflux disease without esophagitis K21.9 Active 524120857 Problem Obesity (BMI 30-39.9) E66.9 Active 659357781 Problem Essential hypertension I10 Active 38926867 Problem Vitamin D deficiency E55.9 Active 51587317 Problem Type 2 diabetes mellitus with diabetic neuropathy, unspecified E11.40 Active 38257879 Problem Polyneuropathy associated with underlying disease G63 Active 179875491 Problem Allergic contact dermatitis, unspecified trigger L23.9 Active 501316234 Problem Chondrocalcinosis M11.20 Active 937899642 Problem Primary osteoarthritis of both knees M17.0 Active 305262989 Problem Non compliance with medical treatment Z91.19 Active 6924497 ALLERGIES Substance Reaction Event Type Date Status Lovastatin Unknown Drug Allergy Jul, Active SOCIAL HISTORY Never Assessed PLAN OF CARE Activity Details Follow Up 4 Weeks Reason:f/u depression VITAL SIGNS Height 64 in 2016-08-12 Weight 220 lbs 2016-08-12 Temperature 99.1 degrees Fahrenheit 2016-08-12 Heart Rate 90 bpm 2016-08-12 Respiratory Rate 20 2016-08-12 BMI 37.76 kg/m2 2016-08-12 Blood pressure systolic 158 mmHg 2016-08-12 Blood pressure diastolic 96 mmHg 2016-08-12 MEDICATIONS Medication Instructions Dosage Frequency Start Date End Date Duration Status Terbinafine HCl 250 MG Orally Once a day 1 tablet 24h 30 Active BD Insulin Syringe Ultrafine 31G X 15/64 subcutaneously Once a day as directed 24h Sep, 90 days Active Lisinopril 10 mg Orally Once a day 1 tablet 24h Active Atorvastatin Calcium 20 mg Orally Once a day 1 tablet 24h 90 days Active Actos 45 MG Orally Once a day 1 tablet 24h 90 days Active Glimepiride 2 MG Orally Once a day 1 tablet 24h May, 90 days Active Amoxicillin 500 MG Orally every 12 hrs 1 tablet 12h Jul, 10 day (s) Active Metformin HCl 500 mg Orally with breakfast, 1 tablet at midday, & 2 tablets with dinner 2 tablets 90 days Active Nexium 40 mg Orally Once a day 1 capsule 24h 90 days Active [facility] Vitamin D3 1000 UNIT Orally Once a day 1 capsule 24h Jun, Sep, 90 days Active Paxil 40 mg Orally Once a day 1 tablet in the morning 24h 30 days Active Accu-Chek Softclix Lancets in vitro 2 times a day as directed 12h Sep, 90 days Active Triamcinolone Acetonide 0.025 % Externally Twice a day apply thin layer to chest and legs 12h May, 10 days Active Lantus 100 UNIT/ML Subcutaneous Once a day 40 units daily 24h Oct, 30 days Active Glucocard Expression Test - In Vitro 2 times a day as directed 12Jun, 25 days Active Benzonatate 200 mg Orally Once a day 1 capsule 24h Jul, August, 30 day(s) Active RESULTS No Results PROCEDURES Procedure Date Ordered Result Body Site [facility] VISIT ESTABLISHED PATIENT August 12, 2016 IMMUNIZATIONS No Known Immunizations MEDICAL (GENERAL) HISTORY Type Description Date Medical History Diabetes Type 2 Medical History Hypertension Medical History Hyperlipidemia Medical History Depression Medical History acid reflux Medical History vitamin D deficiency Medical History Right fracture of distal fibula Surgical History 2 C-Sections Hospitalization History x2
--- OUTSIDE RECORDS SUMMARY | 2018-01-01 08:24 | XMS REPORT ---
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 Active 006480464 Problem Moderate episode of recurrent major depressive disorder F33.1 Active 86927146 Problem 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 E78.2 Active 669007763 Problem Gastroesophageal reflux disease without esophagitis K21.9 Active 087105756 Problem Obesity (BMI 30-39.9) E66.9 Active 992725232 Problem Essential hypertension I10 Active 83219385 Problem Vitamin D deficiency E55.9 Active 75521713 Problem Type 2 diabetes mellitus with diabetic neuropathy, unspecified E11.40 Active 36039412 Problem Polyneuropathy associated with underlying disease G63 Active 881655964 Problem Allergic contact dermatitis, unspecified trigger L23.9 Active 334246404 Problem Chondrocalcinosis M11.20 Active 108540444 Problem Primary osteoarthritis of both knees M17.0 Active 146996453 Problem Non compliance with medical treatment Z91.19 Active 7158537 ALLERGIES Unknown Allergies SOCIAL HISTORY No smoking Hx information available PLAN OF CARE VITAL SIGNS MEDICATIONS Unknown Medications RESULTS No Results PROCEDURES No Known procedures IMMUNIZATIONS No Known Immunizations
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
--- OUTSIDE RECORDS SUMMARY | 2018-01-01 08:24 | XMS REPORT ---
Author Author ABDIAS DAYRON Organization [facility] Address [address] [place] [address] Care Team Providers Care Automotive Designer Name Role Phone CALERONINO CarringtonELE Unavailable PROBLEMS Type Condition ICD9-CM Code [id number] Code Onset Dates Condition Status SNOMED Code Problem long term 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 Active 983525441 Problem Moderate episode of recurrent major depressive disorder F33.1 Active 19216394 Problem 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 E78.2 Active 295246550 Problem Gastroesophageal reflux disease without esophagitis K21.9 Active 410446011 Problem Obesity (BMI 30-39.9) E66.9 Active 857703128 Problem Essential hypertension I10 Active 10479163 Problem Vitamin D deficiency E55.9 Active 77698790 Problem Type 2 diabetes mellitus with diabetic neuropathy, unspecified E11.40 Active 40964628 Problem Polyneuropathy associated with underlying disease G63 Active 967534661 Problem Allergic contact dermatitis, unspecified trigger L23.9 Active 275182587 Problem Chondrocalcinosis M11.20 Active 797332543 Problem Primary osteoarthritis of both knees M17.0 Active 912483227 Problem Non compliance with medical treatment Z91.19 Active 8104103 ALLERGIES No Information SOCIAL HISTORY Never Assessed PLAN OF CARE VITAL SIGNS MEDICATIONS Medication Instructions Dosage Frequency Start Date End Date Duration Status Metformin HCl 500 MG Orally with breakfast, 1 tablet at midday, & 2 tablets with dinner 2 tablets 30 days Active BD Insulin Syringe Ultrafine 31G X 15/64 subcutaneously Once a day as directed 24h Sep, 30 days Active Tradjenta 5 mg Orally Once a day 1 tablet 24h Oct, 30 days Active Lantus 100 UNIT/ML Subcutaneous Once a day 36 units daily 24h Oct, 30 days Active Lisinopril 10 mg Orally Once a day 1 tablet 24h 30 days Active Atorvastatin Calcium 20 mg Orally Once a day 1 tablet 24h 30 days Active Actos 45 MG Orally Once a day 1 tablet 24h 30 days Active RESULTS No Results [...]
--- OUTSIDE RECORDS SUMMARY | 2018-01-01 08:24 | XMS REPORT ---
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 Active 505612695 Problem Obesity (BMI 30-39.9) E66.9 Active 407873967 Problem Vitamin D deficiency E55.9 Active 62776157 Problem Moderate episode of recurrent major depressive disorder F33.1 Active 96631431 Problem Gastroesophageal reflux disease without esophagitis K21.9 Active 740204390 Problem Polyneuropathy associated with underlying disease G63 Active 069016069 Problem Type 2 diabetes mellitus with diabetic neuropathy, unspecified E11.40 Active 56997451 Problem Non compliance with medical treatment Z91.19 Active 8236336 Problem Chondrocalcinosis M11.20 Active 645496723 Problem Primary osteoarthritis of both knees M17.0 Active 493484225 Problem Allergic contact dermatitis, unspecified trigger L23.9 Active 993411613 ALLERGIES Unknown Allergies SOCIAL HISTORY No smoking Hx information available PLAN OF CARE Activity Details Follow Up 2 Weeks Reason:depression VITAL SIGNS MEDICATIONS Unknown Medications RESULTS No Results PROCEDURES Procedure Date Ordered Related Diagnosis Body Site [facility] ESTAB PT Mar 14, 2016 Psychotherapy, patient &/family, 30 minutes, established patient Mar 14, 2016 IMMUNIZATIONS No Known Immunizations
--- OUTSIDE RECORDS SUMMARY | 2018-01-01 08:24 | XMS REPORT ---
Author Author DAYRON CALERO Organization [employer] Address Unknown Phone Unavailable Care Team Providers Care Wanigan Clerk Name Role Phone DAYRON CALERO CP Unavailable Allergies, Adverse Reactions, Alerts Substance Reaction Event Type Lovastatin Info Not Available Drug Allergy Problems Problem Type Condition Code Onset Dates Condition Status Problem Rash R21 Active Problem Moderate episode of recurrent major depressive disorder F33.1 Active Problem Vitamin D deficiency E55.9 Active Problem Ringworm B35.9 Active Problem Type 2 diabetes mellitus without complications E11.9 Active Problem Chondrocalcinosis M11.20 Active Problem Essential hypertension I10 Active Problem Gastroesophageal reflux disease without esophagitis K21.9 Active Problem 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 E78.2 Active Problem 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 Active Assessment Chondrocalcinosis M11.20 Active Assessment Ringworm B35.9 Active Problem Obesity (BMI 30-39.9) E66.9 Active Medications Medication Code System Code Instructions Start Date End Date Status Dosage Mometasone Furoate [facility] [address]-17 0.1 % Externally Once a day apply once daily as needed for ear itching and flaking Terbinafine HCl [facility] [address]-95 250 MG Orally Once a day Jan 26, 2016 1 tablet Accu-Chek Softclix Lancets [facility] [address]-24 October 02, 2015 as directed Ciclopirox [facility] [address]-69 0.77 % Externally Twice a day Jan 26, 2016 apply thin layer to areas twice a day Lisinopril [facility] [address]-40 10 mg Orally Once a day 1 tablet Metformin HCl [facility] [address]-96 500 MG Orally with breakfast, 1 tablet at midday, & 2 tablets with dinner 2 tablets Atorvastatin Calcium [facility] [address]-05 20 mg Orally Once a day 1 tablet Esomeprazole Magnesium [facility] [address]-78 40 mg Orally Once a day 1 capsule Fluocinonide-E [facility] [address]-12 0.05 % Externally 2 times a day apply sparingly to rash on breast Fluconazole [facility] [address]-53 150 MG Orally once weekly x 4 weeks Dec 25, 2015 1 tablet Tradjenta [facility] [address]-33 5 mg Orally Once a day November 06, 2015 1 tablet Lantus [facility] [address]-32 100 UNIT/ML Subcutaneous Once a day November 06, 2015 36 units daily Accu-Chek Compact Plus [facility] [address]-60 In Vitro October 02, 2015 as directed Accu-Chek Compact Plus Care [facility] [address]-99 October 02, 2015 as directed Paroxetine HCl [facility] [address]-66 40 mg Orally Once a day 1 tablet in the morning BD Insulin Syringe Ultrafine [facility] 8290-985579 31G X October 02, 2015 as directed Actos [facility] [address]-43 45 MG Orally Once a day 1 tablet Procedures Procedure Coding System Code Date Office Visit, Est Pt., Level 3 CPT-4 01176 Jan 26, 2016 [facility] VISIT ESTABLISHED PATIENT CPT-4 G0467 Jan 26, 2016 Vital Signs Date/Time: Jan 26, 2016 Cardiac Monitoring Heart Rate 78 bpm Weight 221.0 lbs Height 64 in BMI 37.93 Index Blood Pressure Diastolic 86 mmHg Blood Pressure Systolic 142 mmHg Results No Known Results Summary Purpose [employer] Submission
--- OUTSIDE RECORDS SUMMARY | 2018-01-01 08:25 | XMS REPORT ---
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 Active 664346469 Problem Obesity (BMI 30-39.9) E66.9 Active 321910457 Problem Vitamin D deficiency E55.9 Active 34661290 Problem Moderate episode of recurrent major depressive disorder F33.1 Active 53085100 Problem Gastroesophageal reflux disease without esophagitis K21.9 Active 283515115 Problem Polyneuropathy associated with underlying disease G63 Active 329314538 Problem Type 2 diabetes mellitus with diabetic neuropathy, unspecified E11.40 Active 43527513 Problem Non compliance with medical treatment Z91.19 Active 5586238 Problem Chondrocalcinosis M11.20 Active 194581683 Problem Primary osteoarthritis of both knees M17.0 Active 475578292 Problem Allergic contact dermatitis, unspecified trigger L23.9 Active 766278530 ALLERGIES Substance Reaction Event Type Date Status Lovastatin Unknown Drug Allergy Mar, Active SOCIAL HISTORY No smoking Hx information available PLAN OF CARE Activity Details Follow Up 4 Weeks Reason:depression f/u VITAL SIGNS Height 64 in 2016-04-12 Weight 213 lbs 2016-04-12 Temperature 97.4 degrees Fahrenheit 2016-04-12 Heart Rate 88 bpm 2016-04-12 Respiratory Rate 20 2016-04-12 BMI 36.56 kg/m2 2016-04-12 Blood pressure systolic 120 mmHg 2016-04-12 Blood pressure diastolic 76 mmHg 2016-04-12 MEDICATIONS Medication Instructions Dosage Frequency Start Date End Date Duration Status Sertraline HCl 25 MG Orally Once a day 1 tablet daily at bedtime 24h Mar 30 days Active Accu-Chek Compact Plus Care as directed Sep, Active Accu-Chek Compact Plus as directed Sep, Active Accu-Chek Softclix Lancets as directed Sep, Active Actos 45 MG Orally Once a day 1 tablet 24h Active Tradjenta 5 mg Orally Once a day 1 tablet 24h Oct, Active BD Insulin Syringe Ultrafine 31G X 15/64 as directed Sep, Active Lisinopril 10 mg Orally Once a day 1 tablet 24h Active Nexium 40 MG Orally Once a day 1 capsule 24h Mar, 30 day(s) Active Lantus 100 UNIT/ML Subcutaneous Once a day 36 units daily 24h Oct, Active Ibuprofen 800 MG Orally Three times a day 1 tablet 8h Mar,Jun 90 days Active Atorvastatin Calcium 20 mg Orally Once a day 1 tablet 24h Active Metformin HCl 500 MG Orally with breakfast, 1 tablet at midday, & 2 tablets with dinner 2 tablets Active Esomeprazole Magnesium 20 mg Orally Once a day 2 capsule 24h 7 days Active RESULTS No Results PROCEDURES Procedure Date Ordered Related Diagnosis Body Site [facility] VISIT ESTABLISHED PATIENT Apr 12, 2016 Office Visit, Est Pt., Level 4 Apr 12, 2016 IMMUNIZATIONS No Known Immunizations
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
--- OUTSIDE RECORDS SUMMARY | 2018-01-01 08:25 | XMS REPORT ---
Author Author ABDIASDAYRON Organization [facility] Address [address] [place] [address] Care Team Providers Care Fiscal Officer Name Role Phone CALERODAYRON Carrington Unavailable PROBLEMS Type Condition ICD9-CM Code CNV21-LB Code Onset Dates Condition Status SNOMED Code Problem Mixed hyperlipidemia E78.2 Active 431386087 Problem Chondrocalcinosis M11.20 Active 208103197 Problem Moderate episode of recurrent major depressive disorder F33.1 Active 56557291 Problem Dupuytren's contracture of right hand M72.0 Active 43704922079898495 Problem Type 2 diabetes mellitus with diabetic neuropathy, unspecified E11.40 Active 90460659 Problem Non compliance with medical treatment Z91.19 Active 9144573 Problem Allergic contact dermatitis, unspecified trigger L23.9 Active 261430878 Problem Polyneuropathy associated with underlying disease G63 Active 530114723 Problem Primary osteoarthritis of both knees M17.0 Active 549667779 Problem Obesity (BMI 30-39.9) E66.9 Active 835416811 Problem Essential hypertension I10 Active 18991750 Problem Vitamin D deficiency E55.9 Active 64136888 Problem Gastroesophageal reflux disease without esophagitis K21.9 Active 621235785 Problem assisted 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 Active 496792724 ALLERGIES No Information SOCIAL HISTORY Never Assessed PLAN OF CARE VITAL SIGNS MEDICATIONS Unknown [...]
--- OUTSIDE RECORDS SUMMARY | 2018-01-01 08:25 | XMS REPORT ---
Author Author IOANA KIRK Organization [facility] Address [address] [place] [address] Care Team Providers Care Director Speech Name Role Phone IOANA KIRK Unavailable PROBLEMS Type Condition ICD9-CM Code [id number] Code Onset Dates Condition Status SNOMED Code Problem Mixed hyperlipidemia E78.2 Active 931015819 Problem Chondrocalcinosis M11.20 Active 207173088 Problem Moderate episode of recurrent major depressive disorder F33.1 Active 86594018 Problem Dupuytren's contracture of right hand M72.0 Active 26129821675890309 Problem Type 2 diabetes mellitus with diabetic neuropathy, unspecified E11.40 Active 44029035 Problem Non compliance with medical treatment Z91.19 Active 2509614 Problem Allergic contact dermatitis, unspecified trigger L23.9 Active 363252356 Problem Polyneuropathy associated with underlying disease G63 Active 490016015 Problem Primary osteoarthritis of both knees M17.0 Active 632505999 Problem Obesity (BMI 30-39.9) E66.9 Active 111587830 Problem Essential hypertension I10 Active 74946785 Problem Vitamin D deficiency E55.9 Active 93914033 Problem Gastroesophageal reflux disease without esophagitis K21.9 Active 758752326 Problem intermediate 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 Active 549046088 ALLERGIES Substance Reaction Event Type Date Status Lovastatin Unknown Drug Allergy Sep, Active SOCIAL HISTORY Never Assessed PLAN OF CARE Activity Details Follow Up prn Reason: VITAL SIGNS Height 64 in 2016-09-15 Weight 221.6 lbs 2016-09-15 Temperature 97.9 degrees Fahrenheit 2016-09-15 Heart Rate 84 bpm 2016-09-15 Respiratory Rate 20 2016-09-15 BMI 38.03 kg/m2 2016-09-15 Blood pressure systolic 126 mmHg 2016-09-15 Blood pressure diastolic 74 mmHg 2016-09-15 MEDICATIONS Medication Instructions Dosage Frequency Start Date End Date Duration Status Paxil 40 mg Orally Once a day 1 tablet in the morning 24h 30 days Active Gauze Bandage - as directed Sep, 30 days Active [facility] Vitamin D3 1000 UNIT Orally Once a day 1 capsule 24h Jun, Sep, 90 days Active Lisinopril 10 mg Orally Once a day 1 tablet 24h Active Silvadene 1 % Externally twice per day 1 application to R breast Sep, Oct, 20 days Active Triamcinolone Acetonide 0.025 % Externally Twice a day apply thin layer to chest and legs 12h May, 10 days Active Actos 45 MG Orally Once a day 1 tablet 24h 90 days Active Atorvastatin Calcium 20 mg Orally Once a day 1 tablet 24h 90 days Active Tramadol HCl 50 MG Orally every 6 hrs 1 tablet as needed 6h Sep, Sep, 5 days Active Terbinafine HCl 250 MG Orally Once a day 1 tablet 24h 30 Active Lantus 100 UNIT/ML Subcutaneous Once a day 40 units daily 24h Oct, 30 days Active Accu-Chek Softclix Lancets in vitro 2 times a day as directed 12Sep, 90 days Active Nexium 40 mg Orally Once a day 1 capsule 24h 90 days Active Metformin HCl 500 mg Orally with breakfast, 1 tablet at midday, & 2 tablets with dinner 2 tablets 90 days Active Glucocard Expression Test - In Vitro 2 times a day as directed 12Jun, 25 days Active Glimepiride 2 MG Orally Once a day 1 tablet 24h May, 90 days Active BD Insulin Syringe Ultrafine 31G X 15/64 subcutaneously Once a day as directed 24h Sep, 90 days Active RESULTS No Results PROCEDURES Procedure Date Ordered Result Body Site [facility] VISIT ESTABLISHED PATIENT September 15, 2016 IMMUNIZATIONS No Known Immunizations MEDICAL (GENERAL) HISTORY Type Description Date Medical History Diabetes Type 2 Medical History Hypertension Medical History Hyperlipidemia Medical History Depression Medical History acid reflux Medical History vitamin D deficiency Medical History Right fracture of distal fibula Surgical History 2 C-Sections Hospitalization History x2
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
--- OUTSIDE RECORDS SUMMARY | 2018-01-01 08:29 | XMS REPORT ---
Author Author DAYRON CALERO Organization [employer] Address Unknown Phone Unavailable Care Team Providers Care Television Writer Name Role Phone DAYRON CALERO CP Unavailable Allergies, Adverse Reactions, Alerts Substance Reaction Event Type Lovastatin Info Not Available Drug Allergy Problems Problem Type Condition Code Onset Dates Condition Status Problem Obesity (BMI 30-39.9) E66.9 Active Problem Vitamin D deficiency E55.9 Active Problem Rash R21 Active Problem Type 2 diabetes mellitus without complications E11.9 Active Problem Mixed hyperlipidemia E78.2 Active Problem Ringworm B35.9 Active Problem Gastroesophageal reflux disease without esophagitis K21.9 Active Problem Moderate episode of recurrent major depressive disorder F33.1 Active 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 Active Problem Essential hypertension I10 Active Assessment Excoriation T14.8 Active Assessment Ringworm B35.9 Active Assessment Vitamin D deficiency E55.9 Active Assessment Type 2 diabetes mellitus without complications E11.9 Active Medications Medication Code System Code Instructions Start Date End Date Status Dosage Clotrimazole-Betamethasone [facility] [address]-18 1-0.05 % Externally Twice a day 1 application to affected area Esomeprazole Magnesium [facility] [address]-10 40 mg Orally Once a day 1 capsule Accu-Chek Softclix Lancets [facility] [address]-61 October 02, 2015 as directed Accu-Chek Compact Plus Care [facility] [address]-41 October 02, 2015 as directed Atorvastatin Calcium [facility] [address]-64 20 mg Orally Once a day 1 tablet Tradjenta [facility] [address]-73 5 mg Orally Once a day November 06, 2015 1 tablet BD Insulin Syringe Ultrafine [facility] 8290-361121 31G X October 02, 2015 as directed Triamcinolone Acetonide [facility] [address]-20 0.1 % Externally Twice a day September 25, 2015 apply thin layer to rash Cholecalciferol [facility] [address]-63 2000 UNIT Orally Once a day November 06, 2015 Jan 05, 2016 1 capsule Accu-Chek Compact Plus [facility] [address]-99 In Vitro October 02, 2015 as directed Mometasone Furoate [facility] [address]-25 0.1 % Externally Once a day apply once daily as needed for ear itching and flaking Fluocinonide-E [facility] [address]-92 0.05 % Externally 2 times a day apply sparingly to rash on breast Calmoseptine [facility] [address]-53 0.44-20.625 % Externally Once a day October apply thin layer to area under breast daily Paroxetine HCl [facility] [address]-86 40 mg Orally Once a day 1 tablet in the morning Metformin HCl [facility] [address]-90 500 MG Orally with breakfast, 1 tablet at midday, & 2 tablets with dinner 2 tablets Actos [facility] [address]-77 45 MG Orally Once a day 1 tablet Lantus [facility] [address]-40 100 UNIT/ML Subcutaneous Once a day November 06, 2015 36 units daily Lisinopril [facility] [address]-50 10 mg Orally Once a day 1 tablet Ketoconazole [facility] [address]-85 2 % Externally twice a day November 06, 2015 apply thin layer to the areas on chest and back Procedures Procedure Coding System Code Date Office Visit, Est Pt., Level 3 CPT-4 44608 November 06, 2015 [facility] VISIT ESTABLISHED PATIENT CPT-4 G0467 November 06, 2015 Vital Signs Date/Time: November 06, 2015 Blood Pressure Systolic 130 mmHg Weight 218.0 lbs Height 64 in Blood Pressure Diastolic 72 mmHg Results No Known Results Summary Purpose [employer] Submission
--- OUTSIDE RECORDS SUMMARY | 2018-01-01 08:29 | XMS REPORT | Continuity of Care Document ---
Author Author [facility] Organization [facility] Address Unknown Phone Unavailable Allergies Active Description Code Type Severity Reaction Onset Reported/Identified Relationship to Patient Clinical Status Yes lovastatin [id number] Drug Allergy Unknown N/A 08/05/2015 Medications There is no data. 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 08/06/2015 PORFIRIO DO SARA K Ot E11.9 TYPE 2 DIABETES MELLITUS WITHOUT COMPLIC 08/06/2015 PORFIRIO DO SARA K Ot J02.9 ACUTE PHARYNGITIS, UNSPECIFIED 08/06/2015 PORFIRIO DO SARA K Ot J32.9 CHRONIC SINUSITIS, UNSPECIFIED 08/06/2015 PORFIRIO DO SARA K Ot R09.82 POSTNASAL DRIP 08/06/2015 PORFIRIO DO SARA K Ot Z79.4 SENIOR CARE (CURRENT) USE OF INSULIN 01/30/2016 OLIMPIA EVANGELISTA, FRANSISCO Heaton Ot E11.9 TYPE 2 DIABETES MELLITUS WITHOUT COMPLIC 01/30/2016 FRANSISCO DOAN MD Ot J06.9 ACUTE UPPER RESPIRATORY INFECTION, UNSPE 01/30/2016 FRANSISCO DOAN MD Ot K52.9 NONINFECTIVE GASTROENTERITIS AND COLITIS 01/30/2016 FRANSISCO DOAN MD Ot R05 COUGH 01/30/2016 FRANSISCO DOAN MD Ot R11.0 NAUSEA 01/30/2016 FRANSISCO DOAN MD Ot Z79.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 06/07/2016 JULIO DO APRN Ot E11.9 TYPE 2 DIABETES MELLITUS WITHOUT COMPLIC 06/07/2016 JULIO DO APRN Ot I10 ESSENTIAL (PRIMARY) HYPERTENSION 06/07/2016 JULIO DO APRN Ot R21 RASH AND OTHER NONSPECIFIC SKIN ERUPTION 06/07/2016 JULIO DO APRN Ot Z79.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 06/07/2016 JULIO DO APRN Ot Z79.84 PERSONNEL RESEARCH 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 (CURRENT) USE OF ORAL HYPOGLYC 06/07/2016 JULIO DO APRN Ot Z79.899 OTHER SENIOR CARE (CURRENT) DRUG THERAPY 11/12/2016 ALEX RASCON MD Ot E11.40 TYPE 2 DIABETES MELLITUS WITH DIABETIC N 11/12/2016 ALEX RASCON MD Ot E78.00 PURE HYPERCHOLESTEROLEMIA, UNSPECIFIED 11/12/2016 ALEX RASCON MD, Ot I10 ESSENTIAL (PRIMARY) HYPERTENSION 11/12/2016 ALEX RASCON MD Ot K21.9 GASTRO-ESOPHAGEAL REFLUX DISEASE WITHOUT 11/12/2016 ALEX RASCON MD Ot S82.831A OTH FRACTURE OF UPPER AND LOWER END OF R 11/12/2016 ALEX RASCON MD Ot S99.911A UNSPECIFIED INJURY OF RIGHT ANKLE, INITI 11/12/2016 ALEX RASCON MD Ot W18.30XA FALL ON SAME LEVEL, UNSPECIFIED, INITIAL 11/12/2016 ALEX RASCON MD Ot Z79.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 11/12/2016 ALEX RASCON MD Ot Z79.84 SENIOR CARE (CURRENT) USE OF ORAL HYPOGLYC 10/27/2017 DAYRON CALERO APRN Ot K42.9 UMBILICAL HERNIA WITHOUT OBSTRUCTION OR 10/27/2017 DAYRON CALERO APRN Ot K80.20 CALCULUS OF GALLBLADDER W/O CHOLECYSTITI 10/27/2017 DAYRON CALERO APRN Ot N28.89 OTHER SPECIFIED DISORDERS OF KIDNEY AND 11/08/2017 DAYRON CALERO APRN Ot K42.9 UMBILICAL HERNIA WITHOUT OBSTRUCTION OR 11/08/2017 DAYRON CALERO APRN Ot K80.20 CALCULUS OF GALLBLADDER W/O CHOLECYSTITI 11/08/2017 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 Results Test Result Range Comp. Metabolic Panel (14) - 12/25/15 11:50 Glucose, Serum 159 mg/dL 65-99 BUN 10 mg/dL 6-24 Creatinine, Serum 0.64 mg/dL 0.57-1.00 eGFR If NonAfricn Am 102 mL/min/1.73 >59 eGFR If Africn Am 118 mL/min/1.73 >59 BUN/Creatinine Ratio 16 9-23 Sodium, Serum 139 mmol/L 134-144 Potassium, Serum 4.5 mmol/L 3.5-5.2 Chloride, Serum 95 mmol/L 97-108 Carbon Dioxide, Total 27 mmol/L 18-29 Calcium, Serum 9.5 mg/dL 8.7-10.2 Protein, Total, Serum 7.9 g/dL 6.0-8.5 Albumin, Serum 4.7 g/dL 3.5-5.5 Globulin, Total 3.2 g/dL 1.5-4.5 A/G Ratio 1.5 1.1-2.5 Bilirubin, Total 0.3 mg/dL 0.0-1.2 Alkaline Phosphatase, S 98 IU/L 39-117 AST (SGOT) 29 IU/L 0-40 ALT (SGPT) 33 IU/L 0-32 Iron and TIBC - 12/25/15 11:50 Iron Bind.Cap.(TIBC) 441 ug/dL 250-450 UIBC 395 ug/dL 131-425 Iron, Serum 46 ug/dL 27-159 Iron Saturation 10 % 15-55 Phosphorus, Serum - 12/25/15 11:50 Phosphorus, Serum 4.2 mg/dL 2.5-4.5 Magnesium, Serum - 12/25/15 11:50 Magnesium, Serum 1.9 mg/dL 1.6-2.3 Ferritin, Serum - 12/25/15 11:50 Ferritin, Serum 27 ng/mL 15-150 PTH, Intact - 12/25/15 11:50 PTH, Intact 38 pg/mL 15-65 Complete blood count (CBC) with automated white blood cell (WBC) differential - 01/30/16 15:30 Blood leukocytes automated count (number/volume) 13.0 10*3/uL 4.3-11.0 Blood erythrocytes automated count (number/volume) 4.68 10*6/uL 4.35-5.85 Venous blood hemoglobin measurement (mass/volume) 13.2 g/dL 11.5-16.0 Blood hematocrit (volume fraction) 39 % 35-52 Automated erythrocyte mean corpuscular volume 83 [foz_us] 80-99 Automated erythrocyte mean corpuscular hemoglobin (mass per erythrocyte) 28 pg 25-34 Automated erythrocyte mean corpuscular hemoglobin concentration measurement ( mass/volume) 34 g/dL 32-36 Automated erythrocyte distribution width ratio 14.0 % 10.0-14.5 Automated blood platelet count (count/volume) 230 10*3/uL 130-400 Automated blood platelet mean volume measurement 11.9 [foz_us] 7.4-10.4 Automated blood neutrophils/100 leukocytes 72 % 42-75 Automated blood lymphocytes/100 leukocytes 18 % 12-44 Blood monocytes/100 leukocytes 9 % 0-12 Automated blood eosinophils/100 leukocytes 0 % 0-10 Automated blood basophils/100 leukocytes 1 % 0-10 Blood neutrophils automated count (number/volume) 9.4 10*3 1.8-7.8 Blood lymphocytes automated count (number/volume) 2.4 10*3 1.0-4.0 Blood monocytes automated count (number/volume) 1.1 10*3 0.0-1.0 Automated eosinophil count 0.0 10*3/uL 0.0-0.3 Automated blood basophil count (count/volume) 0.1 10*3/uL 0.0-0.1 Comprehensive metabolic panel - 01/30/16 15:30 Serum or plasma sodium measurement (moles/volume) 135 mmol/L 135-145 Serum or plasma potassium measurement (moles/volume) 3.9 mmol/L 3.6-5.0 Serum or plasma chloride measurement (moles/volume) 99 mmol/L 98-107 Carbon dioxide 26 mmol/L 21-32 Serum or plasma anion gap determination (moles/volume) 10 mmol/L 5-14 Serum or plasma urea nitrogen measurement (mass/volume) 8 mg/dL 7-18 Serum or plasma creatinine measurement (mass/volume) 0.67 mg/dL 0.60-1.30 Serum or plasma urea nitrogen/creatinine mass ratio 12 NRG Serum or plasma creatinine measurement with calculation of estimated glomerular filtration rate > NRG Serum or plasma glucose measurement (mass/volume) 197 mg/dL 70-105 Serum or plasma calcium measurement (mass/volume) 8.9 mg/dL 8.5-10.1 Serum or plasma total bilirubin measurement (mass/volume) 0.4 mg/dL 0.1-1.0 Serum or plasma alkaline phosphatase measurement (enzymatic activity/volume) 78 U/L 40-136 Serum or plasma aspartate aminotransferase measurement (enzymatic activity/ volume) 18 U/L 5-34 Serum or plasma alanine aminotransferase measurement (enzymatic activity/volume ) 26 U/L 0-55 Serum or plasma protein measurement (mass/volume) 7.4 g/dL 6.4-8.2 Serum or plasma albumin measurement (mass/volume) 3.8 g/dL 3.2-4.5 Complete urinalysis with reflex to culture - 01/30/16 16:15 Urine color determination YELLOW NRG Urine clarity determination CLEAR NRG Urine pH measurement by test strip 6 5-9 Specific gravity of urine by test strip 1.020 1.016- 1.022 Urine protein assay by test strip, semi-quantitative 2+ NEGATIVE Urine glucose detection by automated test strip NEGATIVE NEGATIVE Erythrocytes detection in urine sediment by light microscopy 1+ NEGATIVE Urine ketones detection by automated test strip 1+ NEGATIVE Urine nitrite detection by test strip NEGATIVE NEGATIVE Urine total bilirubin detection by test strip NEGATIVE NEGATIVE Urine urobilinogen measurement by automated test strip (mass/volume) 1 mg/dL NORMAL Urine leukocyte esterase detection by dipstick 3+ NEGATIVE Automated urine sediment erythrocyte count by microscopy (number/high power field) RARE NRG Automated urine sediment leukocyte count by microscopy (number/high power field ) [HPF] NRG Bacteria detection in urine sediment by light microscopy FEW NRG Squamous epithelial cells detection in urine sediment by light microscopy 5-10 NRG Crystals detection in urine sediment by light microscopy NONE NRG Casts detection in urine sediment by light microscopy NONE NRG Mucus detection in urine sediment by light microscopy NEGATIVE NRG Complete urinalysis with reflex to culture YES NRG Bacterial urine culture - 01/30/16 16:15 CBC With Differential/Platelet - 05/17/16 15:40 WBC 11.8 x10E3/uL 3.4-10.8 RBC 4.96 x10E6/uL 3.77-5.28 Hemoglobin 13.4 g/dL 11.1-15.9 Hematocrit 41.3 % 34.0-46.6 MCV 83 fL 79-97 MCH 27.0 pg 26.6-33.0 MCHC 32.4 g/dL 31.5-35.7 RDW 13.7 % 12.3-15.4 Platelets 313 x10E3/uL 150-379 Neutrophils 65 % Lymphs 28 % Monocytes 6 % Eos 1 % Basos 0 % Neutrophils (Absolute) 7.7 x10E3/uL 1.4-7.0 Lymphs (Absolute) 3.3 x10E3/uL 0.7-3.1 Monocytes(Absolute) 0.7 x10E3/uL 0.1-0.9 Eos (Absolute) 0.2 x10E3/uL 0.0-0.4 Baso (Absolute) 0.0 x10E3/uL 0.0-0.2 Immature Granulocytes 0 % Immature Grans (Abs) 0.0 x10E3/uL 0.0-0.1 Hepatic Function Panel (7) - 05/17/16 15:40 Protein, Total, Serum 7.0 g/dL 6.0-8.5 Albumin, Serum 4.1 g/dL 3.5-5.5 Bilirubin, Total <0.2 mg/dL 0.0-1.2 Alkaline Phosphatase, S 111 IU/L 39-117 AST (SGOT) 56 IU/L 0-40 ALT (SGPT) 59 IU/L 0-32 Bilirubin, Direct 0.09 mg/dL 0.00-0.40 Microscopic examination by SUPA preparation - 06/07/16 15:30 SUPA RESULT NEGATIVE; NO FUNGAL ELEMENTS OBSERVED NRG THYROID ANALYZER - 09/22/17 08:18 TSH 1.34 mIU/L NRG Encounters ACCT No. Visit Date/Time Discharge Status Pt. Type Provider Facility Loc./Unit Complaint [id number] 10/26/2017 12:29:00 10/26/2017 23:59:59 CLS Outpatient DAYRON CALERO APRN [facility] RAD RIGHT FLANK PAIN [id number] 11/12/2016 17:17:00 11/12/2016 19:14:00 DIS Emergency TARAH EVANGELISTA, ALEX Le [facility] ER FALL, R FOOT SWELLING [id number] 06/07/2016 13:26:00 06/07/2016 15:26:00 DIS Emergency JULIO DO APRN [facility] ER RASH [id number] 01/30/2016 14:48:00 01/30/2016 16:38:00 DIS Emergency FRANSISCO DOAN MD [facility] ER FEVER/CHILLS/N/V/HEADACHE [id number] 08/05/2015 09:22:00 08/05/2015 10:19:00 DIS Emergency SARA MONROY DO [facility] ER COUGH SORE THROAT [id number] 11/09/2017 14:15:00 11/09/2017 23:59:59 [facility] Outpatient DAYRON CALERO [facility] [id number] 09/22/2017 08:20:00 Document Registration [id number] 12/28/2015 18:06:00 Document Registration [id number] 05/18/2016 08:40:00 Document Registration
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
[2018-01-01] MEDS ORDERED: LACTATED RINGERS 1,000 ML IV ONE (08:40)
[2018-01-01] MEDS ORDERED: ONDANSETRON 4 MG/2 ML (SDV) Z0FRAN IVP ONE (08:45)
[2018-01-01 08:51] LABS: BASOPHILS # (AUTO) 0.1 10^3/uL (0.0-0.1); BASOPHILS % (AUTO) 1 % (0-10); EOSINOPHILS # (AUTO) 0.1 10^3/uL (0.0-0.3); EOSINOPHILS % (AUTO) 1 % (0-10); HEMATOCRIT 40 % (35-52); HEMOGLOBIN 13.6 G/DL (11.5-16.0); LYMPHOCYTES # (AUTO) 2.2 X 10^3 (1.0-4.0); LYMPHOCYTES % (AUTO) 27 % (12-44); MEAN CORPUSCULAR HEMOGLOBIN 27 PG (25-34); MEAN CORPUSCULAR HGB CONC 34 G/DL (32-36); MEAN CORPUSCULAR VOLUME 81 FL (80-99); MEAN PLATELET VOLUME 11.9 FL (7.4-10.4); MONOCYTES # (AUTO) 1.2 X 10^3 (0.0-1.0); MONOCYTES % (AUTO) 15 % (0-12); NEUTROPHILS # (AUTO) 4.7 X 10^3 (1.8-7.8); NEUTROPHILS % (AUTO) 57 % (42-75); PLATELET COUNT 315 10^3/uL (130-400); RED BLOOD COUNT 4.96 10^6/uL (4.35-5.85); WHITE BLOOD COUNT 8.3 10^3/uL (4.3-11.0)
[2018-01-01 09:15] LABS: ALANINE AMINOTRANSFERASE 52 U/L (0-55); ALBUMIN 4.1 GM/DL (3.2-4.5); ALKALINE PHOSPHATASE 75 U/L (40-136); AMYLASE 24 U/L (25-125); BILIRUBIN,TOTAL 0.4 MG/DL (0.1-1.0); BUN/CREATININE RATIO 14; CALCIUM 9.2 MG/DL (8.5-10.1); CARBON DIOXIDE 24 MMOL/L (21-32); CHLORIDE 103 MMOL/L (98-107); CREATININE SERUM 0.71 MG/DL (0.60-1.30); GFR ESTIMATED > 60; GLUCOSE 152 MG/DL (70-105); LIPASE 20 U/L (8-78); POTASSIUM 3.4 MMOL/L (3.6-5.0); SODIUM 138 MMOL/L (135-145); TOTAL PROTEIN 7.8 GM/DL (6.4-8.2)
--- NOTE | 2018-01-01 09:16 | ED GI ---
General Chief Complaint: Abdominal/GI Problems Stated Complaint: FEVER;ABD PAIN Nursing Triage Note: Pt arrives to ED Room #9 c/o nausea, diarrhea, and decreased appetite that started on 12/27. Pt states that she had a fever 100.7 over the weekend. Pt states that she has continual foul diarrhea and can only drink water. Sepsis Screen: No Definite Risk Source of Information: Patient Exam Limitations: Language Barrier (PT SPEAKS FAIR [place]ESE) History of Present Illness Date Seen by Provider: Jan 01, 2018 Time Seen by Provider: 08:25 Initial Comments PT ARRIVES VIA POV FROM HOME C/O WATERY DIARRHEA X 5 DAYS, HAS HAD 2 STOOLS THIS AM NO BLACK/BLOODY/TARRY STOOLS HAS HAD FEVER UP TO 100.7 NO ABDOMINAL PAIN + NAUSEA, NO VOMITING. HAS HAD DECREASED APPETITE, WITH NO FOOD INTAKE FOR 2 DAYS, BUT IS DRINKING WATER WELL NO PROBLEMS URINATING AND IS VOIDING A NORMAL AMOUNT NO KNOWN SICK CONTACTS OR SUSPICIOUS FOODS PCP: TIA CALERO Allergies and Home Medications Allergies Coded Allergies: lovastatin (Unverified Allergy, Unknown, 08/05/15) Home Medications Hydrocodone Bit/Acetaminophen 1 Each Tablet, 1 EACH PO Q6H PRN for PAIN Prescribed by: ALEX JESUS on 11/12/16 190 Lactobacillus Acidophilus 1 Each Capsule, 2 EACH PO QID Prescribed by: SARA MONROY on 01/01/18 1107 Ondansetron 4 Mg Tab.rapdis, 4 MG PO Q4H Prescribed by: SARA MONROY on 01/01/18 1107 Sulfamethoxazole/Trimethoprim 1 Each Tablet, 1 EACH PO BID Prescribed by: SARA MONROY on 01/01/18 1117 Patient Home Medication List Home Medication List Reviewed: Yes Review of Systems Review of Systems Constitutional: see HPI, fever EENTM: No Symptoms Reported Respiratory: No Symptoms Reported Cardiovascular: No Symptoms Reported Gastrointestinal: See HPI; Denies Abdominal Pain; Diarrhea, Nausea, Poor Appetite; Denies Poor Fluid Intake, Denies Vomiting Genitourinary: No Symptoms Reported Musculoskeletal: no symptoms reported Skin: no symptoms reported Psychiatric/Neurological: No Symptoms Reported Endocrine: No Symptoms Reported Hematologic/Lymphatic: No Symptoms Reported Past Mragzxv-Bystzs-Qkqgmu Hx Patient Social History Alcohol Use: Denies Use Recreational Drug Use: No Smoking Status: Never a Smoker 2nd Hand Smoke Exposure: No Recent Foreign Travel: No Contact w/Someone Who Travel: No Recent Infectious Disease Expo: No Recent Hopitalizations: No Physical Abuse: No Sexual Abuse: No Mistreated: No Fear: No Seasonal Allergies Seasonal Allergies: No Past Medical History Surgeries: Yes (CARPAL TUNNEL SURGERY; X 6) Section, Orthopedic, Tubal Ligation Respiratory: No Cardiac: Yes High Cholesterol, Hypertension Neurological: Yes Neuropathy 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 oz. 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, no motor/sensory deficits, alert, normal mood/affect, oriented x 3 Skin: normal color, warm/dry Focused Exam Lactate Level 01/01/18 11:06: Lactic Acid Level 0.70 Lactic Acid Level Laboratory Tests Test 01/01/18 11:06 Lactic Acid Level 0.70 MMOL/L (0.50-2.00) Progress/Results/Core Measures Results/Orders Lab Results Laboratory Tests Test 01/01/18 08:40 01/01/18 09:00 01/01/18 11:06 Range/Units White Blood Count 8.3 4.3-11.0 10^3/uL Red Blood Count 4.96 4.35-5.85 10^6/uL Hemoglobin 13.6 11.5-16.0 G/DL Hematocrit 40 35-52 % Mean Corpuscular Volume 81 80-99 FL Mean Corpuscular Hemoglobin 27 25-34 PG Mean Corpuscular Hemoglobin Concent 34 32-36 G/DL Red Cell Distribution Width 15.0 H 10.0-14.5 % Platelet Count 315 130-400 10^3/uL Mean Platelet Volume 11.9 H 7.4-10.4 FL Neutrophils (%) (Auto) 57 42-75 % Lymphocytes (%) (Auto) 27 12-44 % Monocytes (%) (Auto) 15 H 0-12 % Eosinophils (%) (Auto) 1 0-10 % Basophils (%) (Auto) 1 0-10 % Neutrophils # (Auto) 4.7 1.8-7.8 X 10^3 Lymphocytes # (Auto) 2.2 1.0-4.0 X 10^3 Monocytes # (Auto) 1.2 H 0.0-1.0 X 10^3 Eosinophils # (Auto) 0.1 0.0-0.3 10^3/uL Basophils # (Auto) 0.1 0.0-0.1 10^3/uL Sodium Level 138 135-145 MMOL/L Potassium Level 3.4 L 3.6-5.0 MMOL/L Chloride Level 103 98-107 MMOL/L Carbon Dioxide Level 24 21-32 MMOL/L Anion Gap 11 5-14 MMOL/L Blood Urea Nitrogen 10 7-18 MG/DL Creatinine 0.71 0.60-1.30 MG/DL Estimat Glomerular Filtration Rate > 60 BUN/Creatinine Ratio 14 Glucose Level 152 H 70-105 MG/DL Calcium Level 9.2 8.5-10.1 MG/DL Corrected Calcium 9.1 8.5-10.1 MG/DL Total Bilirubin 0.4 0.1-1.0 MG/DL Aspartate Amino Transf (AST/SGOT) 43 H 5-34 U/L Alanine Aminotransferase (ALT/SGPT) 52 0-55 U/L Alkaline Phosphatase 75 40-136 U/L Total Protein 7.8 6.4-8.2 GM/DL Albumin 4.1 3.2-4.5 GM/DL Amylase Level 24 L 25-125 U/L Lipase 20 8-78 U/L Urine Color YELLOW Urine Clarity CLEAR Urine pH 6 5-9 Urine Specific [place] 1.020 1.016-1.022 Urine Protein 2+ H NEGATIVE Urine Glucose (UA) NEGATIVE NEGATIVE Urine Ketones 1+ H NEGATIVE Urine Nitrite NEGATIVE NEGATIVE Urine Bilirubin 1+ H NEGATIVE Urine Urobilinogen 1 NORMAL MG/DL Urine Leukocyte Esterase 3+ H NEGATIVE Urine RBC (Auto) 2+ H NEGATIVE Urine RBC 2-5 H /HPF Urine WBC 5-10 H /HPF Urine Squamous Epithelial Cells 2-5 /HPF Urine Crystals NONE /LPF Urine Bacteria LARGE H /HPF Urine Casts NONE /LPF Urine Mucus NEGATIVE /LPF Urine Culture Indicated YES Lactic Acid Level 0.70 0.50-2.00 MMOL/L Micro Results Microbiology 01/01/18 Fecal Leukocyte Stain - Final, Resulted 01/01/18 C. difficile GDH Antigen & Toxins - Final, Resulted 01/01/18 Stool Culture, Resulted Pending My Orders Orders - SARA MONROY DO Saline Lock/Iv-Start (01/01/18 08:27) Monitor-Rhythm Ecg Trace Only (01/01/18 08:27) Amylase (01/01/18 08:27) Cbc With Automated Diff (01/01/18 08:27) Comprehensive Metabolic Panel (01/01/18 08:27) Lactic Acid Analyzer (01/01/18 08:27) Lipase (01/01/18 08:27) Ua Culture If Indicated (01/01/18 08:27) Blood Culture (01/01/18 08:27) Ondansetron Injection (Zofran Injectio (01/01/18 08:45) Saline Lock/Iv-Start (01/01/18 08:40) Lactated Ringers (Lr 1000 Ml Iv Solution (01/01/18 08:40) Stool Culture (01/01/18 09:21) Fecal Wbc (01/01/18 09:21) C Difficile Ag + Toxin A/B. (01/01/18 09:21) Ct Abdomen/Pelvis W (01/01/18 09:28) Acute Abd Series (01/01/18 09:28) Iohexol Injection (Omnipaque 350 Mg/Ml 1 (01/01/18 09:45) Sodium Chloride Flush (Catheter Flush Sy (01/01/18 09:45) Ns (Ivpb) (Sodium Chloride 0.9%) (01/01/18 09:45) Pharmacy Communication (Pharmacy Communi (01/01/18 09:32) Urine Culture (01/01/18 09:00) Medications Given in ED Vital Signs/I&O 01/01/18 01/01/18 01/01/18 08:23 09:33 11:53 Temp 98.9 99.3 98.4 Pulse 80 72 76 Resp 16 14 16 B/P (MAP) 143/83 (103) 112/75 137/73 Pulse Ox 98 99 99 O2 Delivery Room Air Room Air Room Air Blood Pressure Mean: 103 Progress Progress Note : Progress Note DIARRHEA X 1 DURING ER STAY OTHERWISE DID NOT HAVE ANY OTHER SYMPTOMS UNEVENTFUL ER STAY Diagnostic Imaging Comments ABDOMINAL XRAYS--NO ACUTE PROCESS CT ABDOMEN/ PELVIS--NO ACUTE PROCESS, FATTY LIVER, CHOLELITHIASIS PER RADIOLOGIST REPORTS @ 1058 Reviewed: Reviewed by Me Departure Impression Primary Impression: GASTROENTERITIS Additional Impression: Urinary tract infection Disposition: HOME, SELF-CARE Condition: Stable Departure-Patient Inst. Referrals: [facility] (PCP/Family) Primary Care Physician Patient Instructions: [id number], Viral Gastroenteritis, Adult ( DC), Urinary Tract Infection, Adult (DC) Add. Discharge Instructions: LOTS OF CLEAR LIQUIDS--WATER, BROTH, JELLO, GATORADE BRATS DIET--BANANAS, RICE, APPLESAUCE, TOAST, SALTINES TYLENOL AND MOTRIN NEEDED FOR PAIN OR FEVER FOLLOW UP WITH YOUR DR THIS WEEK FOR FURTHER CARE All discharge instructions reviewed with patient and/or family. Voiced understanding. Scripts Sulfamethoxazole/Trimethoprim (Bactrim Ds Tablet) 1 Each Tablet 1 EACH PO BID, #20 TAB Prov: PORFIRIO,SARA K DO 01/01/18 Lactobacillus Acidophilus (Acidophilus) 1 Each Capsule 2 EACH PO QID, #80 CAP Prov: PORFIRIO,SARA K DO 01/01/18 Ondansetron (Zofran Odt) 4 Mg Tab.rapdis 4 MG PO Q4H for Nausea/Vomiting, #10 TAB Prov: PORFIRIO,SARA K DO 01/01/18 PORFIRIO,SARA K DO Jan 01, 2018 09:16
[2018-01-01 09:41] LABS: CLARITY,URINE CLEAR; COLOR,URINE YELLOW; GLUCOSE, URINE (UA) NEGATIVE (NEGATIVE); KETONES,URINE 1+ (NEGATIVE); LEUKOCYTE ESTERASE ,URINE 3+ (NEGATIVE); NITRITE,URINE NEGATIVE (NEGATIVE); PH,URINE 6 (5-9); PROTEIN,URINE 2+ (NEGATIVE); UROBILINOGEN,URINE 1 MG/DL (NORMAL)
[2018-01-01] MEDS ORDERED: IOHEXOL 350 MG/ML 100 ML (OMNIPAQUE 350) VIAL IV ONE (09:45)
[2018-01-01] MEDS ORDERED: NS 250 ML (IVPB) BAG IV ONE (09:45)
[2018-01-01] MEDS ORDERED: CATHETER FLUSH 10 ML SYR IV PRN (09:45)
[2018-01-01 09:59] LABS: BACTERIA,URINE LARGE /HPF; BILIRUBIN,URINE 1+ (NEGATIVE)
--- NOTE | 2018-01-01 10:16 | Diagnostic Imaging Report ---
INDICATION: Nausea and diarrhea. Time of exam 10:15 AM The heart size is normal. The lungs are clear. No free air is identified. No significant bowel distention is seen. There is contrast in both renal collecting systems and ureters as well as urinary bladder. No definite pathologic calcifications are seen. IMPRESSION: No acute abnormality is identified. Dictated by: Dictated on workstation # [id number]
--- NOTE | 2018-01-01 10:50 | Diagnostic Imaging Report ---
PROCEDURE: CT abdomen and pelvis with contrast. TECHNIQUE: Multiple contiguous axial images were obtained through the abdomen and pelvis after administration of intravenous contrast. INDICATION: Fever, abdominal pain with nausea, vomiting and diarrhea for 4 days. Comparison is made with prior CT from 10/26/2017. FINDINGS: The lung bases are clear. Liver demonstrates generalized low density consistent with hepatic steatosis. No discrete liver mass is identified. Small gallstone within the gallbladder is noted. No biliary ductal dilatation is identified. The pancreas and spleen are unremarkable. No adrenal mass is seen. Fat-containing mass involving the upper pole of right kidney is again seen consistent with an angiomyolipoma. No calculi or hydronephrosis is detected. The aorta is non-aneurysmal. Bowel loops appear nonobstructed. No free fluid is seen. Small fat-containing umbilical hernia is again noted. No definite inflammatory process is identified. The appendix is unremarkable. Small lymph nodes in the mesentery are noted. No pathologically enlarged nodes are seen. No central, retroperitoneal or pelvic lymphadenopathy is seen. IMPRESSION: Overall stable CT of the abdomen and pelvis when compared with examination from 10/26/2017. Hepatic steatosis and cholelithiasis is again noted. There is a small fat-containing umbilical hernia. No acute feature is detected. Dictated by: Dictated on workstation # [id number]
[2018-01-01] MEDS ORDERED: LACT1CAP8 PO (11:07)
[2018-01-01] MEDS ORDERED: ONDA4TAB8 PO (11:07)
[2018-01-01] MEDS ORDERED: SULF1TAB35 PO (11:17)
[2018-01-01 11:53] VITALS: BP 137/73
== END 2018-01-01 11:52 | disposition home or self-care (01) ==
LOC: EDUNIT# 08:13 → ER 08:14
DX: K52.9 Noninfective gastroenteritis and colitis, unspecified (principal); N39.0 Urinary tract infection, site not specified; E78.00 Pure hypercholesterolemia, unspecified; I10 Essential (primary) hypertension; K21.9 Gastro-esophageal reflux disease without esophagitis; E11.42 Type 2 diabetes mellitus with diabetic polyneuropathy; Z88.8 Allergy status to other drugs, medicaments and biological substances; Z98.890 Other specified postprocedural states; Z98.51 Tubal ligation status
CPT/HCPCS: 36415; 74022; 74177; 80053; 81000; 82150; 83605; 83690; 85025; 87040; 87045; 87046; 87077; 87088; 87181; 87186; 87324; 87449; 89055; 93041; 96361; 96374

== ENCOUNTER 2018-12-20 11:02 | Emergency (ER) | payer MEDICARE, MEDICAID ==
[~2018-12-20] VITALS: Ht 162.6 cm; Wt 83.9 kg
[~2018-12-20 11:02] MED LIST changes: +LACT1CAP8 PO; +ONDA4TAB8 PO; +SULF1TAB35 PO
--- NOTE | 2018-12-20 11:10 | ED Lower Extremity ---
General Stated Complaint: RT FOOT PAIN Source: patient Exam Limitations: no limitations History of Present Illness Date Seen by Provider: Dec 20, 2018 Time Seen by Provider: 11:06 Initial Comments To ER by EMS from home with reports of an exacerbation of her right foot pain present x1 month. She saw primary care for this, was not given any medications. Today while cleaning the house it became much worse. No injury. She has already had an x-ray she states. Onset: just prior to arrival Severity: moderate Pain/Injury Location: right foot Method of Injury: unknown Modifying Factors: Worse With Movement Allergies and Home Medications Allergies Coded Allergies: lovastatin (Unverified Allergy, Unknown, 08/05/15) Home Medications Hydrocodone Bit/Acetaminophen 1 Each Tablet, 1 EACH PO Q6H PRN for PAIN Prescribed by: ALEX JESUS on 11/12/16 190 Lactobacillus Acidophilus 1 Each Capsule, 2 EACH PO QID Prescribed by: SARA MONROY on 01/01/18 1107 Ondansetron 4 Mg Tab.rapdis, 4 MG PO Q4H Prescribed by: SARA MONROY on 01/01/18 1107 Sulfamethoxazole/Trimethoprim 1 Each Tablet, 1 EACH PO BID Prescribed by: SARA MONROY on 01/01/18 1117 Patient Home Medication List Home Medication List Reviewed: Yes Review of Systems Constitutional: see HPI EENTM: see HPI Respiratory: no symptoms reported Cardiovascular: no symptoms reported Genitourinary: no symptoms reported Musculoskeletal: see HPI Skin: no symptoms reported Psychiatric/Neurological: No Symptoms Reported Past Dhffdpe-Etzcwz-Pdewld Hx Patient Social History 2nd Hand Smoke Exposure: No Recent Hopitalizations: No Seasonal Allergies Seasonal Allergies: No Past Medical History Surgeries: Yes (CARPAL TUNNEL SURGERY; X 6) Section, Orthopedic, Tubal Ligation Respiratory: No Cardiac: Yes High Cholesterol, Hypertension Neurological: Yes Neuropathy 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 oz. 95.267258gb; BMI Method:Actual General Appearance: WD/WN, no apparent distress Neck: non-tender, full range of motion Respiratory: no respiratory distress, no accessory muscle use Hips: bilateral hip non-tender, bilateral hip normal inspection, bilateral hip normal range of motion Legs: bilateral leg non-tender, bilateral leg normal inspection, bilateral leg normal range of motion Knees: bilateral knee non-tender, bilateral knee normal inspection, bilateral knee normal range of motion Ankles: bilateral ankle non-tender, bilateral ankle normal inspection, bilateral ankle normal range of motion Feet: right foot other (tenderness to palpation over the medial plantar surface of the foot. This is anterior to the calcaneus. No swelling no ecchymosis no deformity.) Neurologic/Tendon: normal sensation, normal motor functions Neurologic/Psychiatric: alert, normal mood/affect, oriented x 3 Skin: normal color, warm/dry Normal dorsalis pedis pulse Progress/Results/Core Measures Results/Orders My Orders Orders - JULIO DO APRN Hydrocodone/Apap 5/325 Tablet (Lortab 5 (12/20/18 11:15) Departure Impression Primary Impression: Plantar fasciitis of right foot Disposition: HOME, SELF-CARE Condition: Stable Departure-Patient Inst. Decision time for Depature: 11:08 Referrals: LEONIE HAIDER MD (PCP) Primary Care Physician [facility] (Family) Primary Care Physician Patient Instructions: Plantar Fasciitis Exercises Add. Discharge Instructions: 1. Use ibuprofen every 8 hours as needed for pain 2. Return to ER for any emergencies, for non emergencies such pain without injury, primary care would be wonderful option. 3. Fill a 2 L bottle of pop with water and freeze it, then a roll your foot back and forth over it. Buy supportive inserts for your shoes to support the arch of her foot. Scripts Diclofenac Sodium (Voltaren) 100 Gm Gel..gram. 100 GM TP TID, #1 TUBE apply to right foot Prov: JULIO DO APRN 12/20/18 JULIO DO APRN Dec 20, 2018 11:10
[2018-12-20] MEDS ORDERED: DICL100G18 TP (11:12)
[2018-12-20] MEDS ORDERED: HYDROcodone/APAP 5 MG/325 MG (LORTAB) TAB PO ONE (11:15)
[2018-12-20 11:30] VITALS: BP 139/64
== END 2018-12-20 11:30 | disposition home or self-care (01) ==
LOC: EDUNIT# 11:02 → ER 11:03
DX: M72.2 Plantar fascial fibromatosis (principal); I10 Essential (primary) hypertension; E78.00 Pure hypercholesterolemia, unspecified; E11.40 Type 2 diabetes mellitus with diabetic neuropathy, unspecified; K21.9 Gastro-esophageal reflux disease without esophagitis; Z88.8 Allergy status to other drugs, medicaments and biological substances; Z98.51 Tubal ligation status
CPT/HCPCS: 99283

== ENCOUNTER → 2020-03-17 | Outpatient (CLI) | payer MEDICARE, MEDICAID ==
[~2020-03-17] MED LIST changes: +DICL100G18 TP; -INDO25CA15; +INDO25CA99; +ONDA-105; -ONDA4TAB10
--- NOTE | 2020-03-17 11:03 | Diagnostic Imaging Report ---
MRI LT LOWER EXT JOINT W/O TECHNIQUE: Multiplanar, multisequence MR imaging of the left knee was performed without contrast. COMPARISON: None available. INDICATION: Knee pain. FINDINGS: MENISCI Medial meniscus: Incomplete radial free edge tearing of posterior horn near the root causes less than 2 mm extrusion of the body into the medial gutter. There is also some degenerative free edge truncation in the body. Lateral meniscus: Normal. LIGAMENTS ACL: Intact. PCL: Intact. MCL: Intact. LCL: The lateral collateral ligamentous complex is intact. EXTENSOR MECHANISM The extensor mechanism is intact. CARTILAGE Medial compartment: Full-thickness chondral loss with subchondral bone marrow edema in the central weightbearing aspect of medial femoral condyle. Lateral compartment: Chondral wear throughout the lateral compartment but no superimposed full-thickness articular cartilage loss. Patellofemoral compartment: Scattered foci of full-thickness chondral fissuring with underlying subchondral bone marrow edema in the medial and lateral patellar facets. BONE No fracture, stress fracture or osteonecrosis. SOFT TISSUE Trace knee joint effusion. There is a small Bahena's cyst that may have ruptured and have partially contained separate fluid collection both proximally and distally. IMPRESSION: 1. Incomplete radial free edge tear in the posterior horn of the medial meniscus near its root. 2. Tricompartmental osteoarthritis has a few scattered sites of full-thickness chondral fissuring and loss in the patellofemoral and medial compartments. 3. Probable partially ruptured Bahena cyst with the sequestered collection located beneath the residual sac. There is a small probability that this sequestered component may represent a solid lesion. Consider ultrasound of the lower leg in the popliteal region for further characterization. Dictated by: Dictated on workstation # [id number]
== END ==
LOC: RAD 08:00
PROVIDERS: ATTEND Nurse Practitioner
DX: M23.304 Other meniscus derangements, unspecified medial meniscus, left knee (principal); M17.12 Unilateral primary osteoarthritis, left knee; S83.242A Other tear of medial meniscus, current injury, left knee, initial encounter; X58.XXXA Exposure to other specified factors, initial encounter
CPT/HCPCS: 73721

== ENCOUNTER 2020-05-18 05:31 | Outpatient (RCR) | payer MEDICARE, MEDICAID ==
[~2020-05-18] VITALS: Ht 161 cm; Wt 100.0 kg
[~2020-05-18 05:31] MED LIST changes: -ATOR20TA66; +ATOR20TA66 PO; -INSU100V6; +INSU100V6 SQ; -LISI10TA2; +LISI10TA2 PO; -METF-397; +METF-397 PO; -NF-ESOM40C; +NF-ESOM40C PO; -PARO40TA3; +PARO40TA3 PO; -PIOG45TA65; +PIOG45TA65 PO
[2020-05-18] MEDS ORDERED: INSU100I14 SQ (09:51)
[2020-05-18] MEDS ORDERED: DULA0.75 SQ (09:51)
== END 2020-05-18 10:02 | disposition home or self-care (01) ==
LOC: PREOP 05:31
PROVIDERS: ATTEND Orthopaedic Surgery
DX: Z01.812 Encounter for preprocedural laboratory examination (principal); S83.242A Other tear of medial meniscus, current injury, left knee, initial encounter; X58.XXXA Exposure to other specified factors, initial encounter; Z20.822 Contact with and (suspected) exposure to COVID-19
CPT/HCPCS: 87081; U0002; 87635

== ENCOUNTER 2020-05-20 07:56 | Day surgery (SDC) | payer MEDICARE, MEDICAID ==
--- NOTE | 2020-05-12 10:41 | HISTORY AND PHYSICAL ---
DATE OF SERVICE: ADMISSION HISTORY AND PHYSICAL This will be for outpatient surgery on 05/20/2020 for left knee arthroscopy. HISTORY OF PRESENT ILLNESS: The patient is a 60-year-old female with progressively worsening left knee pain. She reports pain in the medial, anterior and lateral aspects of the knee. She reports pain with twisting. She underwent an MRI, which reveals a medial meniscus tear. She reports no improvement with anti-inflammatories and activity modifications and because of this, she elected to proceed with surgical intervention. REVIEW OF SYSTEMS: No chest pain, no shortness of breath, no dysuria. PAST MEDICAL HISTORY: Anxiety disorder, back pain, depression, diabetes, reflux, hyperlipidemia, hypertension, osteoarthritis, polyneuropathy, cystocele, rectocele. PAST SURGICAL HISTORY: Right carpal tunnel release, . FAMILY HISTORY: Significant for hyperlipidemia, hypertension, diabetes. PRIMARY CARE PROVIDER: Dr. Fairchild. MEDICATIONS: Aspirin, atorvastatin, ibuprofen, Lantus, lisinopril, metformin, Nexium, Paxil, pioglitazone, Trulicity. ALLERGIES: LOVASTATIN. SOCIAL HISTORY: The patient denies tobacco or alcohol use. PHYSICAL EXAMINATION: GENERAL: The patient is well-developed, well-nourished, in no acute distress. HEENT: Normocephalic, atraumatic. Pupils are equal, round, reactive to light. Oropharynx is clear. NECK: Supple, with no lymphadenopathy. LUNGS: Clear to auscultation bilaterally. HEART: Regular rate and rhythm. ABDOMEN: Soft, nontender, nondistended. EXTREMITIES: The left knee demonstrates a slight effusion. She has a positive Cristóbal's medially with tenderness medially and laterally along joint line. There is patellofemoral crepitus noted. Range of motion is 0/2/120 with a negative straight leg raise. The patient ambulates with a cane. IMPRESSION: Left knee medial meniscus tear with chondromalacia. PLAN: Left knee arthroscopy with partial meniscectomy and chondroplasty. The risks, benefits, options, ramifications and recovery were discussed at length with the patient. She understands and wishes to proceed. Job ID: [id number] DocumentID: [id number] Dictated Date: 05/12/2020 10:21:14 Process Specialist Date: 05/12/2020 10:40:21 Dictated By: NICHOLE FRANZ MD
[~2020-05-20] VITALS: Ht 161 cm; Wt 100.0 kg
[2020-05-20] VITALS (11 sets, daily range): BP systolic 118–155; BP diastolic 8–92
[~2020-05-20 07:56] MED LIST changes: +DULA0.75 SQ; +HYDROcodone/APAP 7.5 MG/325 MG (LORTAB, LORCET PLUS) TABLET PO PRN; +INSU100I14 SQ
[2020-05-20] MEDS ORDERED: fentaNYL INJECTION 100 MCG/2 ML AMP ONE (08:03)
[2020-05-20] MEDS ORDERED: MIDAZOLAM 2 MG/2 ML (VERSED) VIAL ONE (08:04)
[2020-05-20] MEDS: LACTATED RINGERS 1,000 ML IV PRN ×2 (08:29→10:37)
[2020-05-20] MEDS ORDERED: ceFAZolin INJECTION 1,000 MG in WATER (STERILE) FOR INJECTION 10 ML IV ONE (08:30)
[2020-05-20] MEDS ORDERED: BUPIVACAINE 0.25% 30 ML (SENSORCAINE) VIAL ONE (09:01)
[2020-05-20] MEDS ORDERED: morphine PF (DURAMORPH) 10 MG/10 ML AMP ONE (09:01)
--- NOTE | 2020-05-20 09:19 | Progress Note-Pre Operative ---
Pre-Operative Progress Note H&P Reviewed The H&P was reviewed, patient examined and no changes noted. Date Seen by Provider: May 20, 2020 Time Seen by Provider: 09:18 Date H&P Reviewed: May 20, 2020 Time H&P Reviewed: 09:18 Pre-Operative Diagnosis: left knee medial meniscus tear and chondromalacia NICHOLE FRANZ MD May 20, 2020 09:19
--- NOTE | 2020-05-20 09:21 | Progress Note-Post Operative ---
Post-Operative Progess Note Surgeon (s)/Gusset Edger (s) Surgeon NICHOLE FRANZ MD Gusset Edger: Lucas Corona Pre-Operative Diagnosis left knee medial meniscus tear and chondromalacia Post-Operative Diagnosis left knee medial meniscus tear and chondromalacia of the medial femoral condyle and patella Procedure & Operative Findings Date of Procedure 05/20/20 Procedure Performed/Findings left knee arthroscopic partial medial meniscectomy and chondroplasty of the medial femoral condyle and patella Anesthesia Type GETA Estimated Blood Loss Estimated blood loss (mL): minimal Specimens/Packing Specimens Removed none Packing: none NICHOLE FRANZ MD May 20, 2020 09:21
[2020-05-20] MEDS ORDERED: SEVOFLURANE (ULTANE) 15 ML INHAL SOLN ONE (09:53)
[2020-05-20] MEDS ORDERED: GLYCOPYRROLATE 0.2 MG/ML (ROBINUL) 2 ML VIAL ONE (09:53)
[2020-05-20] MEDS ORDERED: ONDANSETRON 4 MG/2 ML (SDV) Z0FRAN ONE (09:53)
[2020-05-20] MEDS ORDERED: LIDOCAINE PF 2% 5 ML (XYLOCAINE) VIAL ONE (09:53)
[2020-05-20] MEDS ORDERED: proPOfol 200 MG/20 ML (DIPRIVAN) VIAL IV ONE (09:53)
[2020-05-20] MEDS ORDERED: morphine INJ 10 MG/ML 1ML (SYR OR VIAL) ONE (10:38)
[2020-05-20] MEDS ORDERED: ONDANSETRON 4 MG/2 ML (SDV) Z0FRAN IVP PRN (11:00)
[2020-05-20] MEDS ORDERED: morphine INJ 10 MG/ML 1ML (SYR OR VIAL) IVP ONE (11:00)
--- NOTE | 2020-05-20 11:06 | OPERATIVE REPORT ---
DATE OF SERVICE: 05/20/2020 PREOPERATIVE DIAGNOSES: 1. Left knee medial meniscus tear. 2. Left knee chondromalacia of the medial femoral condyle. POSTOPERATIVE DIAGNOSES: 1. Left knee medial meniscus tear. 2. Left knee chondromalacia of the medial femoral condyle. 3. Left knee chondromalacia of the patella. PROCEDURES: 1. Left knee arthroscopic partial medial meniscectomy. 2. Left knee arthroscopic chondroplasty of the medial femoral condyle. 3. Left knee arthroscopic chondroplasty of the patella. SURGEON: Fredi Franz MD DIRECTOR PHARMACOVIGILANCE: Lucas Corona, who assisted throughout the procedure and closed the incisions. ANESTHESIA: General endotracheal by Eula Chau CRNA. TOURNIQUET TIME: Not applicable. ESTIMATED BLOOD LOSS: Minimal. DRAINS: None. COMPLICATIONS: None. POSTOPERATIVE PLAN: Routine arthroscopy protocol. The patient was transferred to the recovery room awake and in stable condition. STATEMENT OF MEDICAL NECESSITY: The patient is a 60-year-old female with complaints of left medial knee pain, catching, locking and swelling. An MRI revealed a posterior horn medial meniscus tear as well as chondral changes in the medial compartment. She tried rest, activity modifications, and anti-inflammatories without relief. Due to functional impairment and failure to improve with conservative measures, the patient elected to proceed with surgical intervention. Examination under anesthesia revealed range of motion of 0/0/130 with negative Ector, negative anterior and posterior drawer. No varus valgus laxity, negative pivot shift. Arthroscopic findings of the patella demonstrated grade II chondral flap superiorly in a 10 x 10 area. Trochlea demonstrated no gross chondral abnormalities. Medial and lateral gutters were clear. ACL and PCL were intact. Lateral compartment demonstrated no significant meniscal or chondral pathology. The medial compartment demonstrated complex tear of the posterior horn and body of the medial meniscus involving approximately posterior horn and body. In addition, there were grade II chondral flaps of the central portion of femoral condyle in a 10 x 10 area. PROCEDURE IN DETAIL: After risks and benefits of procedure were discussed and questions were answered, informed consent was signed and placed on chart, the operative site was confirmed in the preoperative holding area and initialed by the surgeon. The patient was then transferred to the operating room and after adequate levels of general endotracheal anesthetic were obtained, a timeout was called, confirming the operative site. Examination under anesthesia was performed with above findings noted. The left lower extremity was prepped and draped in the usual sterile fashion. The knee joint was injected with 60 mL of fluid and standard inferolateral portal was placed with the arthroscope under direct visualization, inferior medial portal was created. The menisci and cruciates carefully probed with the above findings noted. The unstable chondral flaps on the patella were debrided with shaver back to a stable edge. The scope was redirected into the medial compartment with unstable chondral flaps on the medial femoral condyle were debrided with shaver back to a stable edge and the posterior horn and body of the medial meniscus were debrided with a biter and shaver removing approximately one-half of the posterior horn. This was carefully probed with no further tearing or instability noted. The knee was copiously irrigated. Port sites were closed with 4-0 nylon in septic fashion. Knee was injected with Duramorph. Port sites were infiltrated with plain Marcaine. A soft dressing was applied. The patient was transferred to the recovery room awake and in stable condition. Job ID: [id number] DocumentID: [id number] Dictated Date: 05/20/2020 10:21:39 Pinmaker Date: 05/20/2020 11:05:53 Dictated By: FREDI FRANZ MD
[2020-05-20] MEDS ORDERED: HYDR-3817 PO (11:46)
--- NOTE | 2020-05-20 12:30 | Anesthesia-General Post-Op ---
General Patient Condition Mental Status/LOC: Same as Preop Cardiovascular: Satisfactory Nausea/Vomiting: Absent Respiratory: Satisfactory Pain: Controlled Complications: Absent Post Op Complications Complications None Follow Up Care/Instructions Patient Instructions None needed. Anesthesia/Patient Condition Patient Condition Patient is doing well, no complaints, stable vital signs, no apparent adverse anesthesia problems. No complications reported per nursing. WILLI HOLLINS CRNA May 20, 2020 12:30
--- NOTE | 2020-05-20 12:55 | Physical Therapy Ortho Eval ---
PT Orthopedic Evaluation Type of Surgery Knee Scope LLE Prior Level of Function Current Living Status: Locomotion (Upon Admit): Straight Cane Unsure if she lives with anyone, Patient states she has family that lives near her and her son may be available to help if needed. Subjective Subjective Patient in bed pre tx, agrees to PT, has no pain at rest. Entry Into Home: Stairs Without Railing Steps Into Home: 1 Motor Control Motor Control: Motor Control WNL ROM LLE knee flexion 85 degrees, extension 0 degrees Transfer SCALE: Activities may be completed with or without assistive devices. 6-Ahkdjjmtml-hhsovxv completes the activity by him/herself with no assistance from a helper. 5-Set-up or Clean-up Assistance-helper sets up or cleans up; patient completes activity. Cecil assists only prior to or following the activity. 4-Supervision or Touching Assistance-helper provides verbal cues and/or touc law/steadying and/or contact guard assistance as patient completes activity. Assistance may be provided throughout the activity or intermittently. 3-Partial/Moderate Assistance-helper does LESS THAN HALF the effort. Cecil lifts, holds or supports trunk or limbs, but provides less than half the effort. 2-Substantial/Maximal Assistance-helper does MORE THAN HALF the effort. Cecil lifts or holds trunk or limbs and provides more than half the effort. 0-Wtfhqczad-bmptqr does ALL the effort. Patient does none of the effort to complete the activity. Or, the assistance of 2 or more helpers is required for the patient to complete the activity. If activity was not attempted, code reason: 7-Patient Refused. 9-Not Applicable-not attempted and the patient did not perform the activity before the current illness, exacerbation or injury. 10-Not Attempted due to Environmental Limitations-(lack of equipment, weather restraints, etc.). 88-Not Attempted due to Medical Conditions or Safety Concerns. Transfers (B, C, W/C) (QC): 4 Gait Gait Assistive Device: FWW Left Lower Extremity: Left Weight Bearing Status LLE: Weight Bearing/Tolerated Summary/Comments Patient ambulated 80' with a rolling walker with SBA, some unsteadiness but no LOB, patient states her meds have made her woozy, good weight bearing and step through. Patient instructed on correct sequence and safety for going up and down her step at home. Treatment Rendered Treatment: Therapeutic Exercises, Gait Train, Step Train Exercise Instruction: Quad Sets, Heel Slides, Ankle Pumps Assessment/Goals Goal Time Frame: 1 Visit Plan Treatment Plan: Discharge PT/Family Agrees to Plan: Yes Time Time In: 1203 Time Out: 1216 Total Billed Treatment Time: 13 Billed Treatment Time 1 visit EVL 13' CARLEE WRIGHT PT May 20, 2020 12:55
== END 2020-05-20 12:50 | disposition home or self-care (01) ==
LOC: SDC 07:56
PROVIDERS: ATTEND Orthopaedic Surgery
DX: S83.242A Other tear of medial meniscus, current injury, left knee, initial encounter (principal); M22.42 Chondromalacia patellae, left knee; I10 Essential (primary) hypertension; K21.9 Gastro-esophageal reflux disease without esophagitis; F41.9 Anxiety disorder, unspecified; F32.9 Major depressive disorder, single episode, unspecified; E78.5 Hyperlipidemia, unspecified; M19.90 Unspecified osteoarthritis, unspecified site; E11.42 Type 2 diabetes mellitus with diabetic polyneuropathy; E66.9 Obesity, unspecified; Z68.38 Body mass index [BMI] 38.0-38.9, adult; Z79.82 Long term (current) use of aspirin; Z79.84 Long term (current) use of oral hypoglycemic drugs; Z79.899 Other long term (current) drug therapy; Z88.8 Allergy status to other drugs, medicaments and biological substances
CPT/HCPCS: 82962

== ENCOUNTER 2021-01-06 16:55 | Emergency (ER) | payer MEDICARE, MEDICAID ==
[~2021-01-06] VITALS: Ht 162 cm; Wt 90.7 kg
[~2021-01-06 16:55] MED LIST changes: +HYDR-3817 PO; -HYDROcodone/APAP 7.5 MG/325 MG (LORTAB, LORCET PLUS) TABLET PO PRN; -LISI10TA2 PO; +LISI10TA25 PO; +SERT-412; -SERT25TA5; -SULF1TAB35 PO; +SULF1TAB38 PO
[2021-01-06 18:00] LABS: BASOPHILS % (AUTO) 1 % (0-10); EOSINOPHILS # (AUTO) 0.1 10^3/uL (0.0-0.3); EOSINOPHILS % (AUTO) 2 % (0-10); HEMATOCRIT 39 % (35-52); HEMOGLOBIN 12.6 g/dL (11.5-16.0); LYMPHOCYTES # (AUTO) 2.3 10^3/uL (1.0-4.0); LYMPHOCYTES % (AUTO) 29 % (12-44); MEAN CORPUSCULAR HEMOGLOBIN 27 pg (25-34); MEAN CORPUSCULAR HGB CONC 32 g/dL (32-36); MEAN CORPUSCULAR VOLUME 83 fL (80-99); MEAN PLATELET VOLUME 11.7 fL (9.0-12.2); MONOCYTES # (AUTO) 0.6 10^3/uL (0.0-1.0); MONOCYTES % (AUTO) 7 % (0-12); NEUTROPHILS # (AUTO) 4.9 10^3/uL (1.8-7.8); NEUTROPHILS % (AUTO) 62 % (42-75); PLATELET COUNT 320 10^3/uL (130-400); WHITE BLOOD COUNT 7.9 10^3/uL (4.3-11.0)
[2021-01-06 18:13] LABS: POTASSIUM 4.1 MMOL/L (3.6-5.0)
[2021-01-06 18:14] LABS: CALCIUM 9.3 MG/DL (8.5-10.1)
[2021-01-06 18:15] LABS: BILIRUBIN,URINE NEGATIVE (NEGATIVE); CLARITY,URINE CLEAR; COLOR,URINE YELLOW; GLUCOSE, URINE (UA) NEGATIVE (NEGATIVE); KETONES,URINE NEGATIVE (NEGATIVE); LEUKOCYTE ESTERASE ,URINE NEGATIVE (NEGATIVE); NITRITE,URINE NEGATIVE (NEGATIVE); PROTEIN,URINE NEGATIVE (NEGATIVE)
[2021-01-06 18:15] LABS: FIBRIN DEGRADATION PRODUCTS 1.36 UG/ML (0.00-0.49); INR 0.9 (0.8-1.4); PROTHROMBIN TIME PATIENT 12.7 SEC (12.2-14.7); TOTAL PROTEIN 8.2 GM/DL (6.4-8.2)
[2021-01-06 18:17] LABS: BILIRUBIN,TOTAL 0.5 MG/DL (0.1-1.0)
[2021-01-06 18:19] LABS: CREATININE SERUM 0.7 MG/DL (0.60-1.30)
[2021-01-06 18:23] LABS: BACTERIA,URINE NEGATIVE /HPF; WBC,URINE 0-2 /HPF
--- NOTE | 2021-01-06 18:28 | ED General ---
General Chief Complaint: Cough/Cold/Flu Symptoms Stated Complaint: FEVER, CHILLS, BODY ACHES, CONGESTION Nursing Triage Note: Patient reports to ED for congestion x's 2 weeks. Patient reports she has been seen at [facility] 3-4 times but has not improved. Pt has been covid tested all those times but has been negative. Patient was given flonase without improvement. She believes she might have pneumonia or bronchitis. Her PCP did labs and she was told her enzymes were elevated, after reporting no improvement PCP sent pt here. Patient ambulated to room 10. Source of Information: Patient Exam Limitations: No Limitations (JULIO DO APRN) History of Present Illness Date Seen by Provider: Jan 06, 2021 Time Seen by Provider: 18:27 Initial Comments ER is devices placed to ER with reports of productive cough and chest congestion for 2 weeks. She has had 4 negative Covid tests at [facility] most recently today. They did draw some labs and found her to have an elevated D- dimer and elevated liver enzymes and she was referred to the emergency room for this reason. 1 day of fevers. No abdominal pain vomiting or diarrhea. Timing/Duration: Other (2 weeks) Severity: Moderate Associated Systoms: Nausea/Vomiting (JULIO DO APRN) Allergies and Home Medications Allergies Coded Allergies: lovastatin (Unverified Allergy, Unknown, 08/05/15) Patient Home Medication List Home Medication List Reviewed: Yes (JULIO DO APRN) Atorvastatin Calcium (Atorvastatin Calcium) 20 Mg Tablet, 20 MG PO HS, (Reported) Entered as Reported by: CLARITA ROSARIO on 01/30/16 151 Cefuroxime Axetil (Cefuroxime) 250 Mg Tablet, 250 MG PO BID Prescribed by: JULIO DO on 01/06/21 193 Dulaglutide (Trulicity) 0.75 Mg/0.5 Ml Pen.injctr, 0.75 MG SQ WEEK, (Reported) Entered as Reported by: MONIK WEINSTEIN on 05/18/20 0951 Esomeprazole Magnesium (Nexium) 40 Mg Cap, 40 MG PO DAILY, (Reported) Entered as Reported by: CLARITA ROSARIO on 01/30/16 1512 Hydrocodone/Acetaminophen (Hydrocodone-Acetamin 7.5-325) 1 Each Tablet, 1 EACH PO Q4H Prescribed by: DARLENE ECHEVARRIA on 05/20/20 1146 Insulin Aspart (Novolog Flexpen) 300 Units/3 Ml Solution, 15 UNIT SQ TIDAC, (Reported) Entered as Reported by: MONIK WEINSTEIN on 05/18/20 0951 Insulin Glargine,Hum.rec.anlog (Lantus) 100 Unit/1 Ml Vial, 40 UNIT SQ HS, (Reported) Entered as Reported by: CLARITA ROSARIO on 01/30/16 1512 Lisinopril (Lisinopril) 10 Mg Tablet, 10 MG PO DAILY, (Reported) Entered as Reported by: RISSA LEBLANC on 06/07/16 1446 Metformin HCl (Metformin HCl) 500 Mg Tablet, 1,000 MG PO BID, (Reported) Entered as Reported by: CLARITA ROSARIO on 01/30/16 1512 Paroxetine HCl (Paroxetine HCl) 40 Mg Tablet, 40 MG PO DAILY, (Reported) Entered as Reported by: CLARITA ROSARIO on 01/30/16 1512 Pioglitazone HCl (Pioglitazone HCl) 45 Mg Tablet, 45 MG PO DAILY, (Reported) Entered as Reported by: RISSA LEBLANC on 06/07/16 1446 Prednisone (Prednisone) 20 Mg Tab, 40 MG PO DAILY Prescribed by: JULIO DO on 01/06/211934 Review of Systems Review of Systems Constitutional: see HPI; No chills EENTM: see HPI Respiratory: see HPI, cough Cardiovascular: no symptoms reported Genitourinary: no symptoms reported Musculoskeletal: no symptoms reported Skin: no symptoms reported Psychiatric/Neurological: No Symptoms Reported Hematologic/Lymphatic: No Symptoms Reported Immunological/Allergic: no symptoms reported (JULIO DO APRN) Past Eagrevy-Bsocup-Bslvpx Hx Patient Social History Tobacco Use?: No Substance use?: No Alcohol Use?: No Pt feels they are or have been: No (JULIO DO APRN) Seasonal Allergies Seasonal Allergies: No (JULIO DO APRN) Past Medical History Surgery/Hospitalization HX: Left knee surgery 04/2020. 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 oz. 83.876319ys; 34.00 BMI Method:Stated General Appearance: No Apparent Distress, WD/WN, Obese Eyes: Bilateral Eye Normal Inspection, Bilateral Eye PERRL, Bilateral Eye EOMI Neck: Full Range of Motion, Normal Inspection Respiratory: No Accessory Muscle Use, No Respiratory Distress Gastrointestinal: Normal Bowel Sounds, Non Tender, Soft Extremity: Normal Capillary Refill, Normal Inspection Neurologic/Psychiatric: Alert, Oriented x3 Skin: Normal Color, Warm/Dry (JULIO DO APRN) Progress/Results/Core Measures Suspected Sepsis SIRS Temperature: Pulse: 84 Respiratory Rate: 20 Laboratory Tests 01/06/21 17:36: White Blood Count 7.9 Blood Pressure 177 /86 Mean: 116 Laboratory Tests 01/06/21 17:36: Creatinine 0.70, INR Comment 0.9, Platelet Count 320, Total Bilirubin 0.5 (JULIO DO APRN) Results/Orders Lab Results Laboratory Tests Test 01/06/21 17:36 01/06/21 18:04 Range/Units White Blood Count 7.9 4.3-11.0 10^3/uL Red Blood Count 4.75 3.80-5.11 10^6/uL Hemoglobin 12.6 11.5-16.0 g/dL Hematocrit 39 35-52 % Mean Corpuscular Volume 83 80-99 fL Mean Corpuscular Hemoglobin 27 25-34 pg Mean Corpuscular Hemoglobin Concent 32 32-36 g/dL Red Cell Distribution Width 13.9 10.0-14.5 % Platelet Count 320 130-400 10^3/uL Mean Platelet Volume 11.7 9.0-12.2 fL Immature Granulocyte % (Auto) 0 % Neutrophils (%) (Auto) 62 42-75 % Lymphocytes (%) (Auto) 29 12-44 % Monocytes (%) (Auto) 7 0-12 % Eosinophils (%) (Auto) 2 0-10 % Basophils (%) (Auto) 1 0-10 % Neutrophils # (Auto) 4.9 1.8-7.8 10^3/uL Lymphocytes # (Auto) 2.3 1.0-4.0 10^3/uL Monocytes # (Auto) 0.6 0.0-1.0 10^3/uL Eosinophils # (Auto) 0.1 0.0-0.3 10^3/uL Basophils # (Auto) 0.0 0.0-0.1 10^3/uL Immature Granulocyte # (Auto) 0.0 0.0-0.1 10^3/uL Prothrombin Time 12.7 12.2-14.7 SEC INR Comment 0.9 0.8-1.4 D-Dimer 1.36 H 0.00-0.49 UG/ML Sodium Level 136 135-145 MMOL/L Potassium Level 4.1 3.6-5.0 MMOL/L Chloride Level 100 98-107 MMOL/L Carbon Dioxide Level 26 21-32 MMOL/L Anion Gap 10 5-14 MMOL/L Blood Urea Nitrogen 7 7-18 MG/DL Creatinine 0.70 0.60-1.30 MG/DL Estimat Glomerular Filtration Rate 86 BUN/Creatinine Ratio 10 Glucose Level 245 H 70-105 MG/DL Calcium Level 9.3 8.5-10.1 MG/DL Corrected Calcium 9.3 8.5-10.1 MG/DL Total Bilirubin 0.5 0.1-1.0 MG/DL Aspartate Amino Transf (AST/SGOT) 173 H 5-34 U/L Alanine Aminotransferase (ALT/SGPT) 292 H 0-55 U/L Alkaline Phosphatase 183 H 40-136 U/L Total Protein 8.2 6.4-8.2 GM/DL Albumin 4.0 3.2-4.5 GM/DL Lipase 45 8-78 U/L Monoscreen NEGATIVE NEGATIVE Urine Color YELLOW Urine Clarity CLEAR Urine pH 6.0 5-9 Urine Specific [employer] 1.010 L 1.016-1.022 Urine Protein NEGATIVE NEGATIVE Urine Glucose (UA) NEGATIVE NEGATIVE Urine Ketones NEGATIVE NEGATIVE Urine Nitrite NEGATIVE NEGATIVE Urine Bilirubin NEGATIVE NEGATIVE Urine Urobilinogen 1.0 < = 1.0 MG/DL Urine Leukocyte Esterase NEGATIVE NEGATIVE Urine RBC (Auto) NEGATIVE NEGATIVE Urine RBC NONE /HPF Urine WBC 0-2 /HPF Urine Squamous Epithelial Cells NONE /HPF Urine Renal Epithelial Cells NONE /HPF Urine Crystals NONE /LPF Urine Bacteria NEGATIVE /HPF Urine Casts NONE /LPF Urine Mucus NEGATIVE /LPF Urine Culture Indicated NO (ALEX RASCON MD) Vital Signs/I&O 01/06/21 01/06/21 01/06/21 01/06/21 17:18 17:18 17:18 19:39 Temp 37.7 37.0 37.0 Pulse 84 84 74 Resp 20 18 B/P (MAP) 177/86 (116) 177/86 123/92 Pulse Ox 99 99 O2 Delivery Room Air Room Air Room Air Room Air (ALEX RASCON MD) Vital Signs/I&O Capillary Refill : Less Than 3 Seconds (JULIO DO APRN) Blood Pressure Mean: 116 Departure Communication (Admissions) NAME: HARRY ELENA [facility] REC#: [id number] PT STATUS: REG ER : 1960 PHYSICIAN: JULIO DO APRN ADMIT DATE: 01/06/21/ER Draft Date of Exam:01/06/21 CT JUAN CHEST/NOANG ABD-PELV W INDICATION: elevated d-dimer, soa, elevated lft CTA chest, abdomen and pelvis Thin axial sections through the chest, abdomen and pelvis are obtained following intravenous contrast bolus. Multiplanar MIP images were reconstructed and reviewed. All CT scans use one or more of the following dose optimizing techniques: automated exposure control, MA and/or KvP adjustment based on patient size and exam type or iterative reconstruction. CTA chest: There is good opacification of pulmonary arteries. No filling defect is identified to indicate embolism. There is four-vessel branching pattern arising from the aortic arch. Aorta is of normal caliber without evidence of dissection. The lungs are clear with calcified granuloma noted in the right middle lobe. Calcified lymph nodes are also seen in the right hilum. There is no significant pleural or pericardial fluid. IMPRESSION: No CTA evidence of pulmonary embolism or other acute abnormality in the chest. CT abdomen and pelvis: There is extensive low-density throughout the liver indicating steatosis. Stones are seen in the lumen of the gallbladder. There is no evidence of pancreatic, adrenal gland or splenic abnormality. Kidneys are unremarkable without evidence of mass or hydronephrosis. There is no evidence of free fluid. There is mild atherosclerotic calcification involving the abdominal aorta. No pathologically enlarged adenopathy is identified. The appendix has a normal appearance. There is small umbilical hernia containing fat. No bowel hernia or obstruction is identified. Urinary bladder is not opacified which limits evaluation. No definite bladder lesion is detected. IMPRESSION: Hepatic steatosis and cholelithiasis without evidence of biliary tract obstruction. Otherwise, there is small umbilical hernia containing fat without evidence of other acute abnormality seen within the abdomen or pelvis. Dictated on workstation # [id number] Dict: 01/06/211908 Trans: 01/06/211919 [facility] [id number] Interpreted by: HOLLIS SALAZAR MD Electronically signed by: (JULIO DO APRN) Impression Primary Impression: Bronchitis Additional Impressions: Elevated liver enzymes Hepatic steatosis Disposition: 01 HOME, SELF-CARE Condition: Stable Departure-Patient Inst. Decision time for Depature: 19:34 (JULIO DO APRN) Referrals: LEONIE HAIDER MD (PCP) Primary Care Physician [facility] [place] (Family) Primary Care Physician Patient Instructions: Acute Bronchitis Add. Discharge Instructions: 1. Follow-up with Dr. Fatou Torres. Return to ER for any worsening. Medication as directed for the bronchitis. All discharge instructions reviewed with patient and/or family. Voiced understanding. Scripts Cefuroxime Axetil (Cefuroxime) 250 Mg Tablet 250 MG PO BID, #10 TAB Prov: JULIO DO APRN 01/06/21 Prednisone (Prednisone) 20 Mg Tab 40 MG PO DAILY, #6 TAB 0 Refills Prov: JULIO DO APRN 01/06/21 ATTENDING PHYSICIAN NOTE: I was physically present as attending physician in the emergency department during the care of this patient, but I was not directly involved in the decision making or delivery of care for this patient. (ALEX RASCON MD) Copy Copies To 1: FATOU TORRES PETER J APRN Jan 06, 2021 18:28 ALEX RASCON MD Jan 07, 2021 08:27
[2021-01-06] MEDS ORDERED: HOLD METFORMIN - RECEIVED CONTRAST 20 ML VIAL IV SCH (18:45)
--- NOTE | 2021-01-06 18:52 | Diagnostic Imaging Report ---
EXAMINATION: Chest 1 view. HISTORY: Cough. COMPARISON: 01/30/2016. FINDINGS: The lung volumes are normal. No focal consolidation is seen. No large pleural effusion or pneumothorax is seen. The cardiomediastinal silhouette is normal in size and contour. No acute osseous abnormality is seen. IMPRESSION: No acute pleuroparenchymal process. Dictated by: Dictated on workstation # [id number]
[2021-01-06] MEDS: IOHEXOL 350 MG/ML 100 ML (OMNIPAQUE 350) VIAL IV ONE (19:08)
[2021-01-06] MEDS: NS 100 ML (IVPB) BAG IV ONE (19:08)
--- NOTE | 2021-01-06 19:22 | Diagnostic Imaging Report ---
INDICATION: elevated d-dimer, soa, elevated lft CTA chest, abdomen and pelvis Thin axial sections through the chest, abdomen and pelvis are obtained following intravenous contrast bolus. Multiplanar MIP images were reconstructed and reviewed. All CT scans use one or more of the following dose optimizing techniques: automated exposure control, MA and/or KvP adjustment based on patient size and exam type or iterative reconstruction. CTA chest: There is good opacification of pulmonary arteries. No filling defect is identified to indicate embolism. There is four-vessel branching pattern arising from the aortic arch. Aorta is of normal caliber without evidence of dissection. The lungs are clear with calcified granuloma noted in the right middle lobe. Calcified lymph nodes are also seen in the right hilum. There is no significant pleural or pericardial fluid. IMPRESSION: No CTA evidence of pulmonary embolism or other acute abnormality in the chest. CT abdomen and pelvis: There is extensive low-density throughout the liver indicating steatosis. Stones are seen in the lumen of the gallbladder. There is no evidence of pancreatic, adrenal gland or splenic abnormality. Kidneys are unremarkable without evidence of mass or hydronephrosis. There is no evidence of free fluid. There is mild atherosclerotic calcification involving the abdominal aorta. No pathologically enlarged adenopathy is identified. The appendix has a normal appearance. There is small umbilical hernia containing fat. No bowel hernia or obstruction is identified. Urinary bladder is not opacified which limits evaluation. No definite bladder lesion is detected. IMPRESSION: Hepatic steatosis and cholelithiasis without evidence of biliary tract obstruction. Otherwise, there is small umbilical hernia containing fat without evidence of other acute abnormality seen within the abdomen or pelvis. Dictated by: Dictated on workstation # [id number]
[2021-01-06] MEDS ORDERED: CEFU250T80 PO (19:35)
[2021-01-06] MEDS ORDERED: PRD20T PO (19:35)
[2021-01-06 19:39] VITALS: BP 123/92
[2021-01-07 21:44] LABS: HEPATITIS C ANTIBODY C Non-Reactive (Non-Reactive)
== END 2021-01-06 19:39 | disposition home or self-care (01) ==
LOC: EDUNIT# 16:55 → ER 16:57
DX: J40 Bronchitis, not specified as acute or chronic (principal); R94.5 Abnormal results of liver function studies; K76.0 Fatty (change of) liver, not elsewhere classified; I10 Essential (primary) hypertension; E78.00 Pure hypercholesterolemia, unspecified; K21.9 Gastro-esophageal reflux disease without esophagitis; E66.9 Obesity, unspecified; E11.9 Type 2 diabetes mellitus without complications; Z68.34 Body mass index [BMI] 34.0-34.9, adult; Z79.899 Other long term (current) drug therapy; Z79.4 Long term (current) use of insulin
CPT/HCPCS: 36415; 71045; 71275; 74177; 80053; 80074; 81000; 83690; 85025; 85379; 85610; 86308

== ENCOUNTER → 2021-05-18 | Outpatient (CLI) | payer MEDICARE, MEDICAID ==
[~2021-05-18] MED LIST changes: +CEFU250T80 PO; +PRD20T PO; -TERB250T16; +TERB250T88
--- NOTE | 2021-05-18 11:25 | Diagnostic Imaging Report ---
MRI RT LOWER EXT JOINT W/O TECHNIQUE: Multiplanar, multisequence MR imaging of the right knee was performed without contrast. COMPARISON: None available. INDICATION: Right knee pain. FINDINGS: MENISCI Medial meniscus: Horizontal cleavage tear is present at the junction of the body and posterior horn of the medial meniscus. The tear contacts the undersurface. Lateral meniscus: Mild degenerative fraying involving the anterior horn of the lateral meniscus. LIGAMENTS ACL: Intact. PCL: Intact. MCL: Intact. LCL: The lateral collateral ligamentous complex is intact. EXTENSOR MECHANISM The extensor mechanism is intact. CARTILAGE Medial compartment: Medial compartment articular cartilage is well preserved without focal high-grade chondromalacia. Lateral compartment: Partial-thickness chondral thinning and fibrillation involving the central weightbearing aspect of the lateral femoral condyle and lateral tibial plateau. Patellofemoral compartment: There is a small region of full-thickness articular cartilage loss in the medial patellar facet and at the patellar apex. BONE No fracture, stress fracture or osteonecrosis. SOFT TISSUE No knee joint effusion. Small Bahena's cyst is not ruptured. IMPRESSION: 1. Urpt-yj-ymuakitz degenerative arthritis is characterized by partial- and full-thickness articular cartilage loss in portions of the lateral and patellofemoral compartments. 2. Horizontal cleavage tear in the posterior horn and body of the medial meniscus. 3. Minimal degenerative fraying in the anterior horn of the lateral meniscus. 4. Small nonruptured Bahena's cyst. Dictated by: Dictated on workstation # [id number]
== END ==
LOC: RAD 09:30
PROVIDERS: ATTEND Nurse Practitioner
DX: S83.241A Other tear of medial meniscus, current injury, right knee, initial encounter (principal); M17.11 Unilateral primary osteoarthritis, right knee; M71.21 Synovial cyst of popliteal space [Baker], right knee; X58.XXXA Exposure to other specified factors, initial encounter
CPT/HCPCS: 73721

== ENCOUNTER 2022-09-21 06:18 | Outpatient (CLI) | payer MEDICARE, MEDICAID ==
[~2022-09-21] VITALS: Ht 165.1 cm; Wt 88.3 kg
[2022-09-24] MEDS ORDERED: DULO60CA59 PO (19:55)
[2022-09-26] MEDS ORDERED: IBUP-1780 PO (10:14)
[2022-09-26] MEDS ORDERED: DULA1.5P2 SQ (10:14)
[2022-09-26] MEDS ORDERED: DULO60CA59 PO (10:14)
[2022-09-26] MEDS ORDERED: METF-397 PO (10:14)
[2022-09-26] MEDS ORDERED: ATOR20TA66 PO (10:14)
[2022-09-26] MEDS ORDERED: ACET-2267 PO (10:14)
[2022-09-26] MEDS ORDERED: LISI10TA25 PO (10:14)
[2022-09-26] MEDS ORDERED: ESOM40CA52 PO (10:14)
[2022-09-26] MEDS ORDERED: CLOT15CR28 TOP (10:14)
[2022-09-26] MEDS ORDERED: MELO15TA39 PO (10:14)
[2022-09-26] MEDS ORDERED: INSU100V6 SQ (10:14)
[2022-09-26] MEDS ORDERED: FEXO180T84 PO (10:15)
[2022-09-26] MEDS ORDERED: ACHD5005 PO (16:03)
[2022-09-29] MEDS ORDERED: DULA1.5P2 SQ (11:52)
== END 2022-09-29 11:57 | disposition home or self-care (01) ==
LOC: PREOP 06:18
PROVIDERS: ATTEND Surgery
DX: Z01.818 Encounter for other preprocedural examination (principal)

== ENCOUNTER 2022-09-23 14:18 | Observation (INO) | payer MEDICARE, MEDICAID ==
[~2022-09-23] VITALS: Ht 157.5 cm; Wt 86.4 kg
[2022-09-23 14:34] LABS: CLARITY,URINE CLEAR; COLOR,URINE YELLOW; GLUCOSE, URINE (UA) NEGATIVE (NEGATIVE); KETONES,URINE NEGATIVE (NEGATIVE); LEUKOCYTE ESTERASE ,URINE NEGATIVE (NEGATIVE); NITRITE,URINE NEGATIVE (NEGATIVE); PROTEIN,URINE NEGATIVE (NEGATIVE)
[2022-09-23] MEDS ORDERED: LIDOCAINE 2% VISCOUS 15 ML UDC PO ONE (14:45)
[2022-09-23] MEDS ORDERED: ONDANSETRON 4 MG/2 ML (SDV) Z0FRAN IVP ONE (14:45)
[2022-09-23] MEDS ORDERED: ANTACID SUSP 30 ML UDC (MYLANTA) PO ONE (14:45)
[2022-09-23 14:50] LABS: BASOPHILS # (AUTO) 0.1 10^3/uL (0.0-0.1); BASOPHILS % (AUTO) 0 % (0-10); EOSINOPHILS # (AUTO) 0.1 10^3/uL (0.0-0.3); EOSINOPHILS % (AUTO) 1 % (0-10); HEMATOCRIT 39 % (35-52); HEMOGLOBIN 12.7 g/dL (11.5-16.0); LYMPHOCYTES % (AUTO) 14 % (12-44); MEAN CORPUSCULAR HEMOGLOBIN 27 pg (25-34); MEAN CORPUSCULAR HGB CONC 32 g/dL (32-36); MEAN CORPUSCULAR VOLUME 84 fL (80-99); MEAN PLATELET VOLUME 10.7 fL (9.0-12.2); MONOCYTES # (AUTO) 0.6 10^3/uL (0.0-1.0); MONOCYTES % (AUTO) 5 % (0-12); NEUTROPHILS # (AUTO) 11.3 10^3/uL (1.8-7.8); NEUTROPHILS % (AUTO) 80 % (42-75); PLATELET COUNT 403 10^3/uL (130-400); WHITE BLOOD COUNT 14.1 10^3/uL (4.3-11.0)
--- NOTE | 2022-09-23 14:51 | ED Abdominal Pain ---
General Chief Complaint: Abdominal/GI Problems Stated Complaint: ABD PAIN Nursing Triage Note: pt ambulatory to room. states she has had acid reflux for "a couple months" and had seen her doctor. pt reports being prescribed nexium but her insurance would not cover it, so she was unable to get this medication. states she is having 9/10 burning pain in her upper middle stomach that caused her to vomit once today. denies nausea otherwise. states regular bowel movements and urination. pt is a&ox4, speech normal on arrival Source of Information: Patient Exam Limitations: No Limitations (TASH RUSSELL APRN) History of Present Illness Date Seen by Provider: Sep 23, 2022 Time Seen by Provider: 14:28 Initial Comments 62-year-old female presents to the ER with complaints of upper abdominal pain for the last 2 months. She states it started out as mild and has progressively gotten worse. She reports history of gastric reflux, states that this pain feels similar to her gastric reflux. She has been taking Nexium for 8 to 9 years. She states it is no longer helping. She reports 1 episode of vomiting this morning after eating. Denies fevers, diarrhea, constipation. Last bowel movement was this morning and normal. Past medical history includes diabetes, hyperlipidemia, hypertension. (TASH RUSSELL APRN) Allergies and Home Medications Allergies Coded Allergies: piperacillin (Verified Allergy, Intermediate, 09/25/22) Swelling and redness of hands and itching tazobactam (Verified Allergy, Intermediate, 09/25/22) Swelling and redness of hands and itching lovastatin (Unverified Allergy, Unknown, 08/05/15) Patient Home Medication List Home Medication List Reviewed: Yes (TASH RUSSELL APRN) Acetaminophen (Tylenol Extra Strength) 500 Mg Tablet, 1,000 MG PO Q8H PRN for PAIN-MILD (1-4), (Reported) Entered as Reported by: MATTIE SARGENT on 09/26/22 1014 Last Action: Reviewed Atorvastatin Calcium (Atorvastatin Calcium) 20 Mg Tablet, 20 MG PO DAILY, (Reported) Entered as Reported by: MATTIE SARGENT on 09/26/22 1014 Last Action: Reviewed Clotrimazole (Clotrimazole) 1 % Cream..g., 1 APPLIC TOP DAILY, (Reported) Entered as Reported by: MATTIE SARGENT on 09/26/221013 Last Action: Reviewed Dulaglutide (Trulicity) 1.5 Mg/0.5 Ml Pen.injctr, 1.5 MG SQ MONDAY, (Reported) Entered as Reported by: MATTIE SARGENT on 09/26/221013 Last Action: Reviewed Duloxetine HCl (Duloxetine HCl) 60 Mg Capsule.dr, 60 MG PO DAILY, (Reported) Entered as Reported by: MATTIE SARGENT on 09/26/221013 Last Action: Reviewed Esomeprazole Magnesium (Esomeprazole Magnesium) 40 Mg Capsule.dr, 40 MG PO 1200, (Reported) Entered as Reported by: MATTIE SARGENT on 09/26/221013 Last Action: Reviewed Fexofenadine HCl (Dena Allergy) 180 Mg Tablet, 180 MG PO DAILY PRN for ALLERGIES, (Reported) Entered as Reported by: MATTIE SARGENT on 09/26/221014 Last Action: Reviewed Ibuprofen (Ibuprofen) 800 Mg Tablet, 800 MG PO BID PRN for PAIN-MILD (1-4), (Reported) Entered as Reported by: MATTIE SARGENT on 09/26/221013 Last Action: Reviewed Insulin Glargine,Hum.rec.anlog (Lantus) 100 Unit/Ml Vial, 46 UNITS SQ DAILY, (Reported) Entered as Reported by: MATTIE SARGENT on 09/26/221013 Last Action: Reviewed Lisinopril (Lisinopril) 10 Mg Tablet, 10 MG PO DAILY, (Reported) Entered as Reported by: MATTIE SARGENT on 09/26/221013 Last Action: Reviewed Meloxicam (Meloxicam) 15 Mg Tablet, 15 MG PO DAILY, (Reported) Entered as Reported by: MATTIE SARGENT on 09/26/221013 Last Action: Reviewed Metformin HCl (Metformin HCl) 500 Mg Tablet, 500 MG PO BID, (Reported) Entered as Reported by: MATTIE SARGENT on 09/26/221013 Last Action: Reviewed Review of Systems Review of Systems Constitutional: see HPI (TASH RUSSELL APRN) Past Ktrhynz-Fxyyub-Krgdww Hx Seasonal Allergies Seasonal Allergies: No (TASH RUSSELL APRN) Past Medical History Surgery/Hospitalization HX: Left knee surgery 04/2020. Surgeries: Yes (CARPAL TUNNEL SURGERY; X 6) Section, Orthopedic, Tubal Ligation Respiratory: No Currently Using CPAP: No Currently Using BIPAP: No Cardiac: Yes High Cholesterol, Hypertension Neurological: Yes Neuropathy Reproductive Disorders: No GROUP THERAPIST History: Menopausal Genitourinary: No Gastrointestinal: Yes Gastroesophageal Reflux Musculoskeletal: Yes (RIGHT DISTAL FIBULA FX/ANKLE FX 2016--NO SURGERY) Fractures Endocrine: Yes (INSULIN + PILLS) Diabetes, Insulin dep HEENT: No Cancer: No Psychosocial: No Integumentary: No Blood Disorders: No (TASH RUSSELL APRN) Physical Exam Vital Signs Vital Signs - First Documented 09/23/22 14:28 Temp 37.0 Pulse 74 Resp 20 B/P (MAP) 149/85 (106) Pulse Ox 98 (ALEX RASCON MD) Vital Signs Capillary Refill : (TASH RUSSELL APRN) Height/Weight/BMI Height: 5'4.00" Weight: 185lbs. oz. 83.182769ki; 35.00 BMI Method:Stated General Appearance: WD/WN, no apparent distress Neck: supple, normal inspection Respiratory: lungs clear, normal breath sounds, no respiratory distress, no accessory muscle use Cardiovascular: regular rate, rhythm Gastrointestinal: normal bowel sounds, soft, tenderness (Bilateral upper and epigastric region) Extremities: normal range of motion, normal inspection Neurologic/Psychiatric: alert, normal mood/affect Skin: normal color, warm/dry (TASH RUSSELL APRN) Progress/Results/Core Measures Results/Orders Lab Results Laboratory Tests Test 09/23/22 14:26 09/23/22 14:30 Range/Units Urine Color YELLOW Urine Clarity CLEAR Urine pH 6.0 5-9 Urine Specific Gates 1.025 H 1.016-1.022 Urine Protein NEGATIVE NEGATIVE Urine Glucose (UA) NEGATIVE NEGATIVE Urine Ketones NEGATIVE NEGATIVE Urine Nitrite NEGATIVE NEGATIVE Urine Bilirubin 1+ H NEGATIVE Urine Urobilinogen 2.0 < = 1.0 MG/DL Urine Leukocyte Esterase NEGATIVE NEGATIVE Urine RBC (Auto) NEGATIVE NEGATIVE Urine RBC RARE /HPF Urine WBC NONE /HPF Urine Squamous Epithelial Cells 0-2 /HPF Urine Crystals NONE /LPF Urine Bacteria TRACE /HPF Urine Casts NONE /LPF Urine Mucus SMALL H /LPF Urine Culture Indicated NO White Blood Count 14.1 H 4.3-11.0 10^3/uL Red Blood Count 4.67 3.80-5.11 10^6/uL Hemoglobin 12.7 11.5-16.0 g/dL Hematocrit 39 35-52 % Mean Corpuscular Volume 84 80-99 fL Mean Corpuscular Hemoglobin 27 25-34 pg Mean Corpuscular Hemoglobin Concent 32 32-36 g/dL Red Cell Distribution Width 15.0 H 10.0-14.5 % Platelet Count 403 H 130-400 10^3/uL Mean Platelet Volume 10.7 9.0-12.2 fL Immature Granulocyte % (Auto) 0 % Neutrophils (%) (Auto) 80 H 42-75 % Lymphocytes (%) (Auto) 14 12-44 % Monocytes (%) (Auto) 5 0-12 % Eosinophils (%) (Auto) 1 0-10 % Basophils (%) (Auto) 0 0-10 % Neutrophils # (Auto) 11.3 H 1.8-7.8 10^3/uL Lymphocytes # (Auto) 2.0 1.0-4.0 10^3/uL Monocytes # (Auto) 0.6 0.0-1.0 10^3/uL Eosinophils # (Auto) 0.1 0.0-0.3 10^3/uL Basophils # (Auto) 0.1 0.0-0.1 10^3/uL Immature Granulocyte # (Auto) 0.1 0.0-0.1 10^3/uL Neutrophils % (Manual) 72 % Lymphocytes % (Manual) 16 % Monocytes % (Manual) 4 % Eosinophils % (Manual) 1 % Band Neutrophils 7 % Platelet Estimate FEW LARGE PLTS NOTED Prothrombin Time 12.4 12.2-14.7 SEC INR Comment 0.9 0.8-1.4 Sodium Level 142 135-145 MMOL/L Potassium Level 3.6 3.6-5.0 MMOL/L Chloride Level 102 98-107 MMOL/L Carbon Dioxide Level 30 21-32 MMOL/L Anion Gap 10 5-14 MMOL/L Blood Urea Nitrogen 10 7-18 MG/DL Creatinine 0.80 0.60-1.30 MG/DL Estimat Glomerular Filtration Rate 84 BUN/Creatinine Ratio 13 Glucose Level 153 H 70-105 MG/DL Calcium Level 10.1 8.5-10.1 MG/DL Corrected Calcium 8.5-10.1 MG/DL Total Bilirubin 0.9 0.1-1.0 MG/DL Aspartate Amino Transf (AST/SGOT) 329 H 5-34 U/L Alanine Aminotransferase (ALT/SGPT) 260 H 0-55 U/L Alkaline Phosphatase 252 H 40-136 U/L Lactate Dehydrogenase 466 H 125-220 U/L Total Creatine Kinase 213 H 29-168 U/L Total Protein 8.8 H 6.4-8.2 GM/DL Albumin 4.6 H 3.2-4.5 GM/DL Triglycerides Level 76 <150 MG/DL Cholesterol Level 161 < 200 MG/DL LDL Cholesterol Direct 77 1-129 MG/DL VLDL Cholesterol 15 5-40 MG/DL HDL Cholesterol 65 H 40-60 MG/DL Amylase Level 1368 H 25-125 U/L Lipase 78716 H 8-78 U/L (ALEX RASCON MD) Vital Signs/I&O 09/23/22 09/23/22 14:28 18:24 Temp 37.0 Pulse 74 89 Resp 20 20 B/P (MAP) 149/85 (106) 108/51 Pulse Ox 98 95 (ALEX RASCON MD) Blood Pressure Mean: 106 Progress Progress Note : Progress Note Patient seen and evaluated, resting comfortably in bed, no acute distress. Based on exam and symptoms, work-up initiated including CBC, CMP, amylase, lipase, UA. Zofran and GI cocktail ordered. Labs reviewed. CBC shows elevated WBC 14.1. Neutrophil percentage elevated 80. CMP shows elevated glucose 153, elevated AST 329, elevated ALT 260, elevated alkaline phosphatase 252, total protein elevated 8.8, albumin elevated 4.6. Amylase elevated 1368. Lipase elevated 10,160. Urinalysis shows elevated urine specific gravity 1.025. Bilirubin 1+. CT shows thickened appearance to rugae stomach, likely gastritis. Cholelithiasis but no evidence of cholecystitis. 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 Ultrasound completed as well. It shows cholelithiasis, but no evidence of cholecystitis. I called and spoke with Dr. Billingsley, surgery. He would like hospitalist to admit since this is not clearly cholecystitis that is causing her pancreatitis. I spoke with Dr. Morales, hospitalist. She agrees to admit. She would like me to add on a CPK, LDH, lipid panel, hepatitis panel, INR, GGT, and hemoglobin A1c. She will place acute admission orders. All result discussed with patient. Patient is agreeable to admission. (TASH RUSSELL APRN) Diagnostic Imaging Diagonstic Imaging: CT Plain Films/CT/US/NM/MRI: abdomen, pelvis Comments [facility]. [place], [place] NAME: HARRY ELENA [facility] REC#: [id number] PT STATUS: REG ER : 1960 PHYSICIAN: TASH RUSSELL APRN ADMIT DATE: 09/23/22/ER Signed Date of Exam:09/23/22 CT ABDOMEN/PELVIS W PROCEDURE: CT abdomen and pelvis with contrast. TECHNIQUE: Multiple contiguous axial images were obtained through the abdomen and pelvis after administration of intravenous contrast. Auto Exposure Controls were utilized during the CT exam to meet ALARA standards for radiation dose reduction. All CT scans use one or more of the following dose optimizing techniques: automated exposure control, MA and/or KvP adjustment based on patient size and exam type or iterative reconstruction. INDICATION: Epigastric pain. Vomiting. COMPARISON: 01/06/2021 FINDINGS: Included portions of the lung bases are clear. CT ABDOMEN: Small bowel loops are nondilated. Note is made of somewhat thickened appearance to the rugae of the stomach. Normal appendix is identified. 1.7 x 2.4 cm benign right angiomyolipoma is identified (image 77, series 2). Otherwise, kidneys, adrenal glands, spleen, pancreas, and liver have a normal CT appearance. Note is made of cholelithiasis. There is no gallbladder wall thickening or pericholecystic free fluid. There is no loculated fluid collection, free fluid or free air within the abdomen. No abnormal mesenteric or retroperitoneal adenopathy is seen. Fat-containing umbilical hernia is noted. Osseous structures show no acute abnormalities. CT PELVIS: Urinary bladder is unopacified. No calculi are seen within urinary bladder. There is no loculated fluid collection, free fluid or free air. No abnormal adenopathy is seen. Osseous structures show no acute abnormalities. IMPRESSION: 1. Thickened appearance to the rugae of the stomach. Findings are nonspecific, but do raise suspicion for potential gastritis. 2. Cholelithiasis, but no CT evidence of acute cholecystitis. 3. Benign-appearing angiomyolipoma of the right kidney. Dictated by: Dictated on workstation # [id number] Dict: 09/23/22 1547 Trans: 09/23/221654 CVB Interpreted by: YSABEL ZURITA MD Electronically signed by: YSABEL ZURITA MD 09/23/221654 Diagonstic Imaging: Ultrasound Plain Films/CT/US/NM/MRI: abdomen Comments [facility] [place] [place] NAME: HARRY ELENA [facility] REC#: [id number] PT STATUS: REG ER : 1960 PHYSICIAN: TASH RUSSELL APRN ADMIT DATE: 09/23/22/ER Signed Date of Exam:09/23/22 US GALLBLADDER [id number] PROCEDURE: US Gallbladder. TECHNIQUE: Multiple real-time grayscale images were obtained over the right upper quadrant in various projections. INDICATION: Abdominal pain, elevated pancreatic enzymes. CORRELATED with CT performed earlier same date. FINDINGS: Mobile calculi within the gallbladder present. The gallbladder wall non-thickened. The Cedeno sign negative. There is no intra or extrahepatic bile duct dilatation. The patient's pancreas is obscured sonographically. No visible ascites or acute fluid collection. Portal vein patent and showed normal directional flow. The liver nonfocal. IMPRESSION: 1. Cholelithiasis but no secondary features of acute cholecystitis and no intra or extrahepatic bile duct dilatation. 2. The pancreas and much of the central retroperitoneum are obscured by shadowing bowel gas. Dictated by: Dictated on workstation # [id number] Dict: 09/23/22 1634 Trans: 09/23/22 165 ACB [id number] Interpreted by: HOLLIS AL Electronically signed by: HOLLIS AL 09/23/221652 (TASH RUSSELL APRN) Departure Communication (Admissions) Time/Spoke to Admitting Phy: 16:47 Dr. Morales, see progress note. Time/Spoke to Consulting Phy: 16:23 Dr. Billingsley, surgery, see progress note. (TASH RUSSELL APRN) Impression Primary Impression: Cholelithiases Qualified Codes: K80.20 - Calculus of gallbladder without cholecystitis without obstruction Additional Impressions: Pancreatitis Qualified Codes: K85.10 - Biliary acute pancreatitis without necrosis or infection Angiomyolipoma of right kidney Hepatitis Disposition: ADMITTED INPATIENT Condition: Stable Admissions Decision to Admit Reason: Admit from ER (General) Decision to Admit/Date: Sep 23, 2022 Time/Decision to Admit Time: 16:23 (TASH RUSSELL APRN) Departure-Patient Inst. Referrals: FATOU TORRES DO (PCP/Family) Primary Care Physician ATTENDING PHYSICIAN NOTE: I was physically present as attending physician in the emergency department during the care of this patient. This case was reviewed in brief with Tash Russell NP. We discussed lab findings and clinical presentation. I reviewed the CT scan results with her. I advised consultation with surgeon steel construction worker and consideration for antibiotics. I did not personally interview or examine this patient, and I was not otherwise directly involved in the decision making or delivery of care for this patient. (ALEX RASCON MD) TASH RUSSELL APRN Sep 23, 2022 14:51 ALEX RASCON MD Sep 26, 2022 10:52
[2022-09-23 14:56] LABS: ALBUMIN 4.6 GM/DL (3.2-4.5)
[2022-09-23 14:57] LABS: AMYLASE 1368 U/L (25-125); CHLORIDE 102 MMOL/L (98-107); POTASSIUM 3.6 MMOL/L (3.6-5.0); SODIUM 142 MMOL/L (135-145)
[2022-09-23 14:58] LABS: CALCIUM 10.1 MG/DL (8.5-10.1)
[2022-09-23 14:59] LABS: GLUCOSE 153 MG/DL (70-105); TOTAL PROTEIN 8.8 GM/DL (6.4-8.2)
[2022-09-23 15:00] LABS: CARBON DIOXIDE 30 MMOL/L (21-32)
[2022-09-23 15:01] LABS: BILIRUBIN,TOTAL 0.9 MG/DL (0.1-1.0)
[2022-09-23 15:01] LABS: BILIRUBIN,URINE 1+ (NEGATIVE); RBC,URINE RARE /HPF
[2022-09-23 15:02] LABS: BACTERIA,URINE TRACE /HPF; SQUAMOUS EPITHELIAL CELL,UR 0-2 /HPF
[2022-09-23 15:02] LABS: ALKALINE PHOSPHATASE 252 U/L (40-136)
[2022-09-23 15:03] LABS: GFR ESTIMATED 84
[2022-09-23 15:04] LABS: BUN/CREATININE RATIO 13
[2022-09-23 15:06] LABS: ALANINE AMINOTRANSFERASE 260 U/L (0-55)
[2022-09-23] MEDS ORDERED: NS 100 ML (IVPB) BAG IV ONE (15:15)
[2022-09-23] MEDS ORDERED: HOLD METFORMIN - RECEIVED CONTRAST 20 ML VIAL IV SCH (15:15)
[2022-09-23] MEDS ORDERED: IOHEXOL 350 MG/ML 100 ML (OMNIPAQUE 350) VIAL IV ONE (15:15)
[2022-09-23] MEDS ORDERED: NS IV 1000 ML 1,000 ML IV SCH (15:30)
[2022-09-23 15:35] LABS: BAND NEUTROPHILS 7 %; EOSINOPHILS % (MANUAL) 1 %; LYMPHOCYTES % (MANUAL) 16 %; MONOCYTES % (MANUAL) 4 %; NEUTROPHILS % (MANUAL) 72 %; PLATELET ESTIMATE FEW LARGE PLTS NOTED
[2022-09-23 15:45] LABS: LIPASE 10460 U/L (8-78)
--- NOTE | 2022-09-23 15:55 | Diagnostic Imaging Report ---
PROCEDURE: CT abdomen and pelvis with contrast. TECHNIQUE: Multiple contiguous axial images were obtained through the abdomen and pelvis after administration of intravenous contrast. Auto Exposure Controls were utilized during the CT exam to meet ALARA standards for radiation dose reduction. All CT scans use one or more of the following dose optimizing techniques: automated exposure control, MA and/or KvP adjustment based on patient size and exam type or iterative reconstruction. INDICATION: Epigastric pain. Vomiting. COMPARISON: 01/06/2021 FINDINGS: Included portions of the lung bases are clear. CT ABDOMEN: Small bowel loops are nondilated. Note is made of somewhat thickened appearance to the rugae of the stomach. Normal appendix is identified. 1.7 x 2.4 cm benign right angiomyolipoma is identified (image 77, series 2). Otherwise, kidneys, adrenal glands, spleen, pancreas, and liver have a normal CT appearance. Note is made of cholelithiasis. There is no gallbladder wall thickening or pericholecystic free fluid. There is no loculated fluid collection, free fluid or free air within the abdomen. No abnormal mesenteric or retroperitoneal adenopathy is seen. Fat-containing umbilical hernia is noted. Osseous structures show no acute abnormalities. CT PELVIS: Urinary bladder is unopacified. No calculi are seen within urinary bladder. There is no loculated fluid collection, free fluid or free air. No abnormal adenopathy is seen. Osseous structures show no acute abnormalities. IMPRESSION: 1. Thickened appearance to the rugae of the stomach. Findings are nonspecific, but do raise suspicion for potential gastritis. 2. Cholelithiasis, but no CT evidence of acute cholecystitis. 3. Benign-appearing angiomyolipoma of the right kidney. Dictated by: Dictated on workstation # [id number]
[2022-09-23] MEDS ORDERED: fentaNYL INJ 100 MCG/2 ML AMP IVP ONE (16:00)
--- NOTE | 2022-09-23 16:41 | Diagnostic Imaging Report ---
PROCEDURE: US Gallbladder. TECHNIQUE: Multiple real-time grayscale images were obtained over the right upper quadrant in various projections. INDICATION: Abdominal pain, elevated pancreatic enzymes. CORRELATED with CT performed earlier same date. FINDINGS: Mobile calculi within the gallbladder present. The gallbladder wall non-thickened. The Cedeno sign negative. There is no intra or extrahepatic bile duct dilatation. The patient's pancreas is obscured sonographically. No visible ascites or acute fluid collection. Portal vein patent and showed normal directional flow. The liver nonfocal. IMPRESSION: 1. Cholelithiasis but no secondary features of acute cholecystitis and no intra or extrahepatic bile duct dilatation. 2. The pancreas and much of the central retroperitoneum are obscured by shadowing bowel gas. Dictated by: Dictated on workstation # [id number]
[2022-09-23 17:10] LABS: INR 0.9 (0.8-1.4); PROTHROMBIN TIME PATIENT 12.4 SEC (12.2-14.7)
[2022-09-23 17:18] LABS: TRIGLYCERIDES 76 MG/DL (<150); VLDL CHOLESTEROL 15 MG/DL (5-40)
[2022-09-23 17:23] LABS: CHOLESTEROL 161 MG/DL (< 200)
[2022-09-23 17:24] LABS: CREATINE KINASE 213 U/L (29-168); HDL CHOLESTEROL 65 MG/DL (40-60)
--- NOTE | 2022-09-23 18:34 | History & Physical ---
History of Present Illness HPI/Chief Complaint Chief complaint: Severe nausea and vomiting with elevated liver enzymes with gallbladder disease HPI: This is a 62-year-old female who presented with a 2-month history of mid epigastric pain and lab work-up revealed elevated liver enzymes and ultrasound and CT showed gallbladder disease with elevated white count suspicious for cholecystitis. Dr. Billingsley has been consulted. Source: patient Exam Limitations: no limitations Date Seen 09/23/22 Time Seen by a Provider: 18:00 Attending Physician Raheem Asencio DO PCP Admitting Physician: Attending Physician: Referring Physician Date of Admission Home Medications & Allergies Home Medications Reviewed patient Home Medication Reconciliation performed by pharmacy medication reconciliations pharmacy technician infusion and/or nursing. Patients Allergies have been reviewed. Allergies Allergies Coded Allergies lovastatin (Unverified Allergy, Unknown, 08/05/15) Past Qnaukle-Onzqzc-Yfhhoq Hx Past Med/Social Hx: Reviewed Nursing Past Med/Soc Hx, Reviewed and Corrections made Patient Social History Marrital Status: Employed/Student: unemployed Alcohol Use: Denies Use Smoking Status: Never a Smoker 2nd Hand Smoke Exposure: No Recent Hopitalizations: No Immunizations Up To Date Date of Influenza Vaccine: Jan 16, 2020 Seasonal Allergies Seasonal Allergies: No Past Medical History Surgeries: Section, Orthopedic, Tubal Ligation Currently Using CPAP: No Currently Using BIPAP: No Cardiac: High Cholesterol, Hypertension Neurological: Neuropathy Reproductive: No Menopausal Gastrointestinal: Gastroesophageal Reflux Musculoskeletal: Fractures Endocrine: Diabetes, Insulin dep History of Blood Disorders: No Review of Systems Constitutional: see HPI, malaise, weakness Gastrointestinal: abdominal pain (RUQ), loss of appetite, nausea, vomiting Physical Exam Physical Exam Vital Signs Vital Signs - First Documented 09/23/22 09/23/22 09/23/22 14:28 19:47 20:16 Temp 37.0 Pulse 74 Resp 20 B/P (MAP) 149/85 (106) Pulse Ox 98 O2 Delivery Room Air FiO2 21 Capillary Refill : Height, Weight, BMI Height: 5'4.00" Weight: 185lbs. oz. 83.362174hl; 35.00 BMI Method:Stated General Appearance: WD/WN, Chronically ill, Mild Distress Eyes: Bilateral Eye Normal Inspection, Bilateral Eye PERRL HEENT: PERRL/EOMI, Normal ENT Inspection, Pharynx Normal Neck: Full Range of Motion, Normal Inspection, Non Tender, Supple, Carotid Bruit Respiratory: Chest Non Tender, Lungs Clear, Normal Breath Sounds, No Accessory Muscle Use, No Respiratory Distress Cardiovascular: Regular Rate, Rhythm, No Edema, No Gallop, No JVD, No Murmur, Normal Peripheral Pulses Gastrointestinal: Normal Bowel Sounds, No Organomegaly, No Pulsatile Mass, Soft, Tenderness Back: Normal Inspection, No CVA Tenderness, No Vertebral Tenderness Extremity: Normal Capillary Refill, Normal Inspection, Normal Range of Motion, Non Tender, No Calf Tenderness, No Pedal Edema Neurologic/Psychiatric: Alert, Oriented x3, No Motor/Sensory Deficits, Normal Mood/Affect Skin: Normal Color, Warm/Dry Lymphatic: No Adenopathy Results Results/Procedures Labs Laboratory Tests 09/23/22 14:30 09/24/22 05:28 Patient resulted labs reviewed. Assessment/Plan Admission Diagnosis Assessment: Acute abdominal pain due to acute pancreatitis with acute hepatitis Gallbladder disease suspicious for cholecystitis Diabetes Plan: Dr. Billingsley consult Pain control IV fluids PPI IV antibiotics Admission Status: Observation GHISLAINE ROBISON DO Sep 23, 2022 18:34
[2022-09-23] MEDS ORDERED: ANTACID SUSP 30 ML UDC (MYLANTA) PO PRN (19:00)
[2022-09-23] MEDS ORDERED: polyethylene glycoL POWDER 17 GM (MIRALAX) PACK PO PRN (19:00)
[2022-09-23] MEDS ORDERED: ONDANSETRON 4 MG (ZOFRAN) ORAL DISSOLVE TAB PO PRN (19:00)
[2022-09-23] MEDS ORDERED: PIPERACILLIN SODIUM/TAZOBACTAM 4.5 GM in NS (IVPB) 100 ML IV NR (19:00)
[2022-09-23] MEDS ORDERED: CALCIUM CARBONATE 500 MG (TUMS) TAB.CHEW PO PRN (19:00)
[2022-09-23] MEDS ORDERED: MILK OF MAGNESIA 400 MG/5 ML 30 ML UDC PO PRN (19:00)
[2022-09-23] MEDS ORDERED: BISACODYL 10 MG SUPP (DULCOLAX) PR PRN (19:00)
[2022-09-23] MEDS ORDERED: ONDANSETRON 4 MG/2 ML (SDV) Z0FRAN IV PRN (19:00)
[2022-09-23] MEDS ORDERED: HYDROmorphone 2 MG/ML VIAL (DILAUDID) IV PRN (19:00)
[2022-09-23] MEDS ORDERED: diphenhydrAMINE 25 MG TAB (BENADRYL) PO PRN (19:00)
[2022-09-23] MEDS ORDERED: MELATONIN 3 MG TABLET PO PRN (19:00)
[2022-09-23] MEDS ORDERED: diphenhydrAMINE 50 MG/ML INJ (BENADRYL) IVP PRN (19:00)
[2022-09-23] MEDS ORDERED: LACTULOSE SYRUP 10GM/15ML (ENULOSE) 30ML UDC PO PRN (19:00)
[2022-09-23 19:47] VITALS: BP 112/56
[2022-09-23 20:16] VITALS: BP 149/85
[2022-09-23] MEDS: NS IV 1000 ML 1,000 ML IV SCH (20:22)
[2022-09-23] MEDS: inSUlin ASPART (NovoLOG) 1 UNIT/0.01 ML (CHARGE PER UNIT) SC SCH (20:39)
[2022-09-23] MEDS ORDERED: RT-ALBUTEROL SULF 2.5 MG/3 ML PRE-MIX VIAL INH PRN (20:45)
[2022-09-23] MEDS: DOCUSATE SODIUM 100 MG (COLACE) CAP PO SCH (21:03)
[2022-09-23] MEDS: SENNOSIDES 8.6 MG (SENOKOT) TAB PO SCH (21:03)
--- NOTE | 2022-09-23 23:51 | Consultation - Surgery ---
History of Present Illness History of Present Illness Patient Consulted On(michael/time) 09/23/22 23:49 Time Seen by Provider: 23:34 History of Present Illness Surgery asked to consult regarding Pancreatitis and cholelithiasis HPI per ED: pt ambulatory to room. states she has had acid reflux for "a couple months" and had seen her doctor. pt reports being prescribed nexium but her insurance would not cover it, so she was unable to get this medication. states she is having 9/10 burning pain in her upper middle stomach that caused her to vomit once today. denies nausea otherwise. states regular bowel movements and urination. pt is a&ox4, speech normal on arrival. 62-year-old female presents to the ER with complaints of upper abdominal pain for the last 2 months. She states it started out as mild and has progressively gotten worse. She reports history of gastric reflux, states that this pain feels similar to her gastric reflux. She has been taking Nexium for 8 to 9 years. She states it is no longer helping. She reports 1 episode of vomiting this morning after eating. Denies fevers, diarrhea, constipation. Last bowel movement was this morning and normal. Past medical history includes diabetes, hyperlipidemia, hypertension. When I saw pt briefly tonight she stated the pain is worse than it was before. She speaks mostly icelandic and was asleep when I went in. Allergies and Home Medications Allergies Coded Allergies: lovastatin (Unverified Allergy, Unknown, 08/05/15) Patient Home Medication List Home Medication List Reviewed: Yes Atorvastatin Calcium (Atorvastatin Calcium) 20 Mg Tablet, 20 MG PO HS, (Reported) Entered as Reported by: CLARITA ROSARIO on 01/30/16 151 Cefuroxime Axetil (Cefuroxime) 250 Mg Tablet, 250 MG PO BID Prescribed by: JULIO DO on 01/06/21 193 Dulaglutide (Trulicity) 0.75 Mg/0.5 Ml Pen.injctr, 0.75 MG SQ WEEK, (Reported) Entered as Reported by: MONIK WEINSTEIN on 05/18/20 0951 Esomeprazole Magnesium (Nexium) 40 Mg Cap, 40 MG PO DAILY, (Reported) Entered as Reported by: CLARITA ROSARIO on 01/30/16 151 Hydrocodone/Acetaminophen (Hydrocodone-Acetamin 7.5-325) 1 Each Tablet, 1 EACH PO Q4H Prescribed by: DARLENE ECHEVARRIA on 05/20/20 1146 Insulin Aspart (Novolog Flexpen) 300 Units/3 Ml Solution, 15 UNIT SQ TIDAC, (Reported) Entered as Reported by: MONIK WEINSTEIN on 05/18/20 0951 Insulin Glargine,Hum.rec.anlog (Lantus) 100 Unit/1 Ml Vial, 40 UNIT SQ HS, (Reported) Entered as Reported by: CLARITA ROSARIO on 01/30/16 1512 Lisinopril (Lisinopril) 10 Mg Tablet, 10 MG PO DAILY, (Reported) Entered as Reported by: RISSA LEBLANC on 06/07/16 1446 Metformin HCl (Metformin HCl) 500 Mg Tablet, 1,000 MG PO BID, (Reported) Entered as Reported by: CLARITA ROSARIO on 01/30/16 151 Paroxetine HCl (Paroxetine HCl) 40 Mg Tablet, 40 MG PO DAILY, (Reported) Entered as Reported by: CLARITA ROSARIO on 01/30/16 1512 Pioglitazone HCl (Pioglitazone HCl) 45 Mg Tablet, 45 MG PO DAILY, (Reported) Entered as Reported by: RISSA LEBLANC on 06/07/16 1446 Prednisone (Prednisone) 20 Mg Tab, 40 MG PO DAILY Prescribed by: JULIO DO on 01/06/21 193 Past Obnicic-Hzbgvq-Qulowm Hx Patient Social History Smoking Status: Never a Smoker 2nd Hand Smoke Exposure: No Recent Hopitalizations: No Alcohol Use?: No Immunizations Up To Date Date of Influenza Vaccine: Jan 16, 2020 Seasonal Allergies Seasonal Allergies: No Surgeries History of Surgeries: Yes (CARPAL TUNNEL SURGERY; X 6) Surgeries: Section, Orthopedic, Tubal Ligation Respiratory History of Respiratory Disorde: No Cardiovascular History of Cardiac Disorders: Yes Cardiac Disorders: High Cholesterol, Hypertension Neurological History of Neurological Disord: Yes Neurological Disorders: Neuropathy Reproductive System Hx Reproductive Disorders: 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 Genitourinary History of Genitourinary Disor: No Gastrointestinal History of Gastrointestinal Di: Yes Gastrointestinal Disorders: Gastroesophageal Reflux Musculoskeletal History of Musculoskeletal Dis: Yes (RIGHT DISTAL FIBULA FX/ANKLE FX 2016--NO SURGERY) Musculoskeletal Disorders: Fractures Endocrine History of Endocrine Disorders: Yes (INSULIN + PILLS) Endocrine Disorders: Diabetes, Insulin dep HEENT History of HEENT Disorders: No Cancer History of Cancer: No Psychosocial History of Psychiatric Problem: No Integumentary History of Skin or Integumenta: No Blood Transfusions History of Blood Disorders: No Family Medical History Significant Family History: Diabetes, Hypertension Review of Systems-General Constitutional: chills, diaphoresis, malaise, weakness EENTM: No mouth swelling, No epistaxis, No throat swelling Respiratory: No cough, No dyspnea on exertion Cardiovascular: No chest pain, No palpitations Gastrointestinal: abdominal pain; No jaundice; nausea, vomiting Musculoskeletal: joint pain, muscle pain, muscle stiffness Skin: No change in color, No change in hair/nails Psychiatric/Neurological: Anxiety; Denies Depressed, Denies Seizure Physical Exam-General Problems Physical Exam Vital Signs Vital Signs - First Documented 09/23/22 09/23/22 09/23/22 14:28 19:47 20:16 Temp 37.0 Pulse 74 Resp 20 B/P (MAP) 149/85 (106) Pulse Ox 98 O2 Delivery Room Air FiO2 21 Capillary Refill : General Appearance: mild distress, obese Eyes: Bilateral Eye PERRL, Bilateral Eye EOMI HEENT: pharynx normal; No scleral icterus (R), No scleral icterus (L) Neck: non-tender, supple Respiratory: lungs clear, normal breath sounds, no respiratory distress, no accessory muscle use Cardiovascular: regular rate, rhythm, no murmur Gastrointestinal: soft, no organomegaly, distended (mild), guarding (voluntary), hernia (large incarcerated umbilical hernia) Rectal: deferred Extremities: no pedal edema, no calf tenderness 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, alert, oriented x 3 Skin: normal color, warm/dry Lymphatic: no adenopathy (neck, axilla or groin) Data Review Labs Laboratory Tests 09/23/22 14:26: Urine Color YELLOW, Urine Clarity CLEAR, Urine pH 6.0, Urine Specific [place] 1.025H, Urine Protein NEGATIVE, Urine Glucose (UA) NEGATIVE, Urine Ketones NEGATIVE, Urine Nitrite NEGATIVE, Urine Bilirubin 1+H, Urine Urobilinogen 2.0, Urine Leukocyte Esterase NEGATIVE, Urine RBC (Auto) NEGATIVE, Urine RBC RARE, Urine WBC NONE, Urine Squamous Epithelial Cells 0-2, Urine Crystals NONE, Urine Bacteria TRACE, Urine Casts NONE, Urine Mucus SMALLH, Urine Culture Indicated NO 09/23/22 14:30: White Blood Count 14.1H, Red Blood Count 4.67, Hemoglobin 12.7, Hematocrit 39, Mean Corpuscular Volume 84, Mean Corpuscular Hemoglobin 27, Mean Corpuscular Hemoglobin Concent 32, Red Cell Distribution Width 15.0H, Platelet Count 403H, Mean Platelet Volume 10.7, Immature Granulocyte % (Auto) 0, Neutrophils (%) (Auto) 80H, Lymphocytes (%) (Auto) 14, Monocytes (%) (Auto) 5, Eosinophils (%) (Auto) 1, Basophils (%) (Auto) 0, Neutrophils # (Auto) 11.3H, Lymphocytes # (Auto) 2.0, Monocytes # (Auto) 0.6, Eosinophils # (Auto) 0.1, Basophils # (Auto) 0.1, Immature Granulocyte # (Auto) 0.1, Neutrophils % (Manual) 72, Lymphocytes % (Manual) 16, Monocytes % (Manual) 4, Eosinophils % (Manual) 1, Band Neutrophils 7, Platelet Estimate FEW LARGE PLTS NOTED, Prothrombin Time 12.4, INR Comment 0.9, Sodium Level 142, Potassium Level 3.6, Chloride Level 102, Carbon Dioxide Level 30, Anion Gap 10, Blood Urea Nitrogen 10, Creatinine 0.80, Estimat Glomerular Filtration Rate 84, BUN/Creatinine Ratio 13, Glucose Level 153H, Calcium Level 10.1, Corrected Calcium , Total Bilirubin 0.9, Aspartate Amino Transf (AST/SGOT) 329H, Alanine Aminotransferase (ALT/SGPT) 260H, Alkaline Nando sphatase 252H, Lactate Dehydrogenase 466H, Total Creatine Kinase 213H, Total Protein 8.8H, Albumin 4.6H, Triglycerides Level 76, Cholesterol Level 161, LDL Cholesterol Direct 77, VLDL Cholesterol 15, HDL Cholesterol 65H, Amylase Level 1368H, Lipase [id number] 09/23/22 19:59: Glucometer 195H Radiology Date of Exam:09/23/22 CT ABDOMEN/PELVIS W PROCEDURE: CT abdomen and pelvis with contrast. TECHNIQUE: Multiple contiguous axial images were obtained through the abdomen and pelvis after administration of intravenous contrast. Auto Exposure Controls were utilized during the CT exam to meet ALARA standards for radiation dose reduction. All CT scans use one or more of the following dose optimizing techniques: automated exposure control, MA and/or KvP adjustment based on patient size and exam type or iterative reconstruction. INDICATION: Epigastric pain. Vomiting. COMPARISON: 01/06/2021 FINDINGS: Included portions of the lung bases are clear. CT ABDOMEN: Small bowel loops are nondilated. Note is made of somewhat thickened appearance to the rugae of the stomach. Normal appendix is identified. 1.7 x 2.4 cm benign right angiomyolipoma is identified (image 77, series 2). Otherwise, kidneys, adrenal glands, spleen, pancreas, and liver have a normal CT appearance. Note is made of cholelithiasis. There is no gallbladder wall thickening or pericholecystic free fluid. There is no loculated fluid collection, free fluid or free air within the abdomen. No abnormal mesenteric or retroperitoneal adenopathy is seen. Fat-containing umbilical hernia is noted. Osseous structures show no acute abnormalities. CT PELVIS: Urinary bladder is unopacified. No calculi are seen within urinary bladder. There is no loculated fluid collection, free fluid or free air. No abnormal adenopathy is seen. Osseous structures show no acute abnormalities. IMPRESSION: 1. Thickened appearance to the rugae of the stomach. Findings are nonspecific, but do raise suspicion for potential gastritis. 2. Cholelithiasis, but no CT evidence of acute cholecystitis. 3. Benign-appearing angiomyolipoma of the right kidney. Dictated by: Dictated on workstation # [id number] Dict: 09/23/22 1547 Trans: 09/23/22 1655 CV [id number] Interpreted by: YSABEL ZURITA MD Electronically signed by: YSABEL ZURITA MD 09/23/22 1656 Date of Exam:09/23/22 US GALLBLADDER [id number] PROCEDURE: US Gallbladder. TECHNIQUE: Multiple real-time grayscale images were obtained over the right upper quadrant in various projections. INDICATION: Abdominal pain, elevated pancreatic enzymes. CORRELATED with CT performed earlier same date. FINDINGS: Mobile calculi within the gallbladder present. The gallbladder wall non-thickened. The Cedeno sign negative. There is no intra or extrahepatic bile duct dilatation. The patient's pancreas is obscured sonographically. No visible ascites or acute fluid collection. Portal vein patent and showed normal directional flow. The liver nonfocal. IMPRESSION: 1. Cholelithiasis but no secondary features of acute cholecystitis and no intra or extrahepatic bile duct dilatation. 2. The pancreas and much of the central retroperitoneum are obscured by shadowing bowel gas. Dictated by: Dictated on workstation # [id number] Dict: 09/23/22 1634 Trans: 09/23/22 [id number] [facility] [id number] Interpreted by: HOLLIS AL Electronically signed by: HOLLIS AL 09/23/22 5060 Assessment/Plan Assessment/Plan Assessment/Plan Acute pancreatitis Cholelithiasis DM, HTN Pt has acute pancreatitis which is most likely due to gallstones. I spoke with the ED provider and reviewed the CT and US myself. I agree she doesn't have obvious signs of cholecystitis; however, when I measured the CBD on CT I got 9mm which is enlarged and most likely means she has passed some of those gallstones. Plan is NPO, IV fluids, pain control and anti-emetics as needed, IV protonix and monitor labs. She will probably need her gallbladder removed while she is here, but must wait until pain is almost gone and her pancreatic enzymes are close to normal. 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 SYLVESTER GODINEZ DO Sep 23, 2022 23:51
[2022-09-24 01:00] VITALS: BP 129/65
[2022-09-24] MEDS: PIPERACILLIN SODIUM/TAZOBACTAM 4.5 GM in NS (IVPB) 100 ML IV SCH ×3 (01:05→16:37)
[2022-09-24] MEDS: NS IV 1000 ML 1,000 ML IV SCH ×3 (03:06→18:45)
[2022-09-24] MEDS: inSUlin ASPART (NovoLOG) 1 UNIT/0.01 ML (CHARGE PER UNIT) SC SCH ×4 (04:04→20:51)
[2022-09-24 04:39] VITALS: BP 117/68
[2022-09-24 05:43] LABS: LYMPHOCYTES % (AUTO) 6 % (12-44); PLATELET COUNT 348 10^3/uL (130-400)
[2022-09-24 05:44] LABS: BASOPHILS % (AUTO) 0 % (0-10); EOSINOPHILS % (AUTO) 0 % (0-10); HEMATOCRIT 33 % (35-52); HEMOGLOBIN 10.9 g/dL (11.5-16.0); LYMPHOCYTES # (AUTO) 1.2 10^3/uL (1.0-4.0); MEAN CORPUSCULAR HEMOGLOBIN 27 pg (25-34); MEAN CORPUSCULAR HGB CONC 33 g/dL (32-36); MEAN CORPUSCULAR VOLUME 83 fL (80-99); MEAN PLATELET VOLUME 11.2 fL (9.0-12.2); MONOCYTES % (AUTO) 5 % (0-12); NEUTROPHILS # (AUTO) 16.2 10^3/uL (1.8-7.8); NEUTROPHILS % (AUTO) 88 % (42-75); WHITE BLOOD COUNT 18.6 10^3/uL (4.3-11.0)
[2022-09-24 06:07] LABS: ALBUMIN 3.6 GM/DL (3.2-4.5); BILIRUBIN,TOTAL 2.4 MG/DL (0.1-1.0); CALCIUM 8.7 MG/DL (8.5-10.1); CREATININE SERUM 0.75 MG/DL (0.60-1.30); POTASSIUM 3.5 MMOL/L (3.6-5.0); TOTAL PROTEIN 6.8 GM/DL (6.4-8.2)
[2022-09-24 07:06] LABS: AMYLASE 290 U/L (25-125)
--- NOTE | 2022-09-24 07:14 | Progress Note ---
Subjective Date Seen by a Provider: Sep 24, 2022 Time Seen by a Provider: 11:00 Subjective/Events-last exam Patient doing well No more vomiting Liver enzymes improved Pancreatitis improved Needs cholecystectomy but needs a couple more days of IV antibiotics until it is cooled down to be able to do that Review of Systems General: Fatigue, Malaise Gastrointestinal: Nausea, Abdominal Pain Objective Exam Last Set of Vital Signs Vital Signs Date Time Temp Pulse Resp B/P (MAP) Pulse Ox O2 Delivery O2 Flow Rate FiO2 09/24/22 04:39 36.6 98 18 117/68 (84) 94 Room Air 09/23/22 20:16 21 Capillary Refill : I&O Intake and Output 09/24/22 00:00 Intake Total 1350 ml Balance 1350 ml Intake Oral 350 ml IV Total 1000 ml # Voids 3 Daily Weight Change Unsure General: Alert, Oriented X3, Cooperative, No Acute Distress Lungs: Clear to Auscultation, Normal Air Movement Heart: Regular Rate, Normal S1, Normal S2, No Murmurs Psych/Mental Status: Mental Status NL, Mood NL Results Lab Laboratory Tests 09/23/22 14:26: Urine Color YELLOW, Urine Clarity CLEAR, Urine pH 6.0, Urine Specific [place] 1.025H, Urine Protein NEGATIVE, Urine Glucose (UA) NEGATIVE, Urine Ketones NEGATIVE, Urine Nitrite NEGATIVE, Urine Bilirubin 1+H, Urine Urobilinogen 2.0, Urine Leukocyte Esterase NEGATIVE, Urine RBC (Auto) NEGATIVE, Urine RBC RARE, Urine WBC NONE, Urine Squamous Epithelial Cells 0-2, Urine Crystals NONE, Urine Bacteria TRACE, Urine Casts NONE, Urine Mucus SMALLH, Urine Culture Indicated NO 09/23/22 14:30: White Blood Count 14.1H, Red Blood Count 4.67, Hemoglobin 12.7, Hematocrit 39, Mean Corpuscular Volume 84, Mean Corpuscular Hemoglobin 27, Mean Corpuscular Hemoglobin Concent 32, Red Cell Distribution Width 15.0H, Platelet Count 403H, Mean Platelet Volume 10.7, Immature Granulocyte % (Auto) 0, Neutrophils (%) (Auto) 80H, Lymphocytes (%) (Auto) 14, Monocytes (%) (Auto) 5, Eosinophils (%) (Auto) 1, Basophils (%) (Auto) 0, Neutrophils # (Auto) 11.3H, Lymphocytes # (Auto) 2.0, Monocytes # (Auto) 0.6, Eosinophils # (Auto) 0.1, Basophils # (Auto) 0.1, Immature Granulocyte # (Auto) 0.1, Neutrophils % (Manual) 72, Lymphocytes % (Manual) 16, Monocytes % (Manual) 4, Eosinophils % (Manual) 1, Band Neutrophils 7, Platelet Estimate FEW LARGE PLTS NOTED, Prothrombin Time 12.4, INR Comment 0.9, Sodium Level 142, Potassium Level 3.6, Chloride Level 102, Carbon Dioxide Level 30, Anion Gap 10, Blood Urea Nitrogen 10, Creatinine 0.80, Estimat Glomerular Filtration Rate 84, BUN/Creatinine Ratio 13, Glucose Level 153H, Calcium Level 10.1, Corrected Calcium , Total Bilirubin 0.9, Aspartate Amino Transf (AST/SGOT) 329H, Alanine Aminotransferase (ALT/SGPT) 260H, Alkaline Phosphatase 252H, Lactate Dehydrogenase 466H, Total Creatine Kinase 213H, Total Protein 8.8H, Albumin 4.6H, Triglycerides Level 76, Cholesterol Level 161, LDL Cholesterol Direct 77, VLDL Cholesterol 15, HDL Cholesterol 65H, Amylase Level 1368H, Lipase [id number] 09/23/22 19:59: Glucometer 195H 09/24/22 05:28: White Blood Count 18.6H, Red Blood Count 4.01, Hemoglobin 10.9L, Hematocrit 33L, Mean Corpuscular Volume 83, Mean Corpuscular Hemoglobin 27, Mean Corpuscular Hemoglobin Concent 33, Red Cell Distribution Width 15.3H, Platelet Count 348, Mean Platelet Volume 11.2, Immature Granulocyte % (Auto) 1, Neutrophils (%) (Auto) 88H, Lymphocytes (%) (Auto) 6L, Monocytes (%) (Auto) 5, Eosinophils (%) (Auto) 0, Basophils (%) (Auto) 0, Neutrophils # (Auto) 16.2H, Lymphocytes # (Auto) 1.2, Monocytes # (Auto) 1.0, Eosinophils # (Auto) 0.0, Basophils # (Auto) 0.0, Immature Granulocyte # (Auto) 0.1, Sodium Level 141, Potassium Level 3.5L, Chloride Level 106, Carbon Dioxide Level 26, Anion Gap 9, Blood Urea Nitrogen 10, Creatinine 0.75, Estimat Glomerular Filtration Rate 91, BUN/Creatinine Ratio 13, Glucose Level 120H, Calcium Level 8.7, Corrected Calcium 9.0, Total Bilirubin 2.4H, Aspartate Amino Transf (AST/SGOT) 533H, Alanine Aminotransferase (ALT/SGPT) 514#H, Alkaline Phosphatase 214H, Total Protein 6.8, Albumin 3.6, Amylase Level 290H Assessment/Plan Assessment/Plan Assess & Plan/Chief Complaint Assessment: Acute abdominal pain due to acute pancreatitis with acute hepatitis Gallbladder disease suspicious for cholecystitis Diabetes Plan: Dr. Billingsley consult Pain control IV fluids PPI IV antibiotics GHISLAINE ROBISON DO Sep 24, 2022 07:14
[2022-09-24 07:15] LABS: LIPASE 801 U/L (8-78)
[2022-09-24 08:06] VITALS: BP 131/61
[2022-09-24] MEDS: PANTOPRAZOLE 40 MG (PROTONIX) VIAL IV SCH (09:06)
[2022-09-24] MEDS: SENNOSIDES 8.6 MG (SENOKOT) TAB PO SCH ×2 (09:12→20:00)
[2022-09-24] MEDS: DOCUSATE SODIUM 100 MG (COLACE) CAP PO SCH ×2 (09:12→20:00)
[2022-09-24 11:55] VITALS: BP 139/65
--- NOTE | 2022-09-24 15:20 | Progress Note - Surgery ---
Subjective Time Seen by a Provider: 12:47 Subjective/Events-last exam Pt seen and examined, states her pain is less and she is hungry. 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 Review of Systems Pulmonary: No Dyspnea, No Cough Cardiovascular: No: Chest Pain, Palpitations Gastrointestinal: Abdominal Pain; No: Nausea, Vomiting Objective Exam Vital Signs Date Time Temp Pulse Resp B/P (MAP) Pulse Ox O2 Delivery O2 Flow Rate FiO2 09/24/22 13:00 79 09/24/22 11:55 37.5 76 20 139/65 (89) 96 Room Air 09/24/22 08:53 96 Room Air 0.00 09/24/22 08:06 37.2 76 20 131/61 (84) 93 Room Air 09/24/22 08:00 Room Air 09/24/22 07:00 74 09/24/22 04:39 36.6 98 18 117/68 (84) 94 Room Air 09/24/22 01:00 36.4 104 20 129/65 (86) 95 Room Air 09/24/22 01:00 106 09/23/22 20:50 Room Air 09/23/22 20:45 90 09/23/22 20:26 Room Air 09/23/22 20:16 37.0 74 98 21 09/23/22 19:47 36.0 95 20 112/56 (74) 94 Room Air 09/23/22 18:24 89 20 108/51 95 I & O 09/24/22 07:00 Intake Total 1450 ml Output Total 375 ml Balance 1075 ml Capillary Refill : General Appearance: WD/WN, Chronically ill, Mild Distress HEENT: PERRL/EOMI Respiratory: Lungs Clear, Normal Breath Sounds, No Accessory Muscle Use, No Respiratory Distress Cardiovascular: Regular Rate, Rhythm, No Murmur Gastrointestinal: soft, no organomegaly, distended (mild), guarding (v oluntary), hernia (large incarcerated umbilical hernia) Extremity: No Calf Tenderness, No Pedal Edema Neurologic/Psychiatric: Alert, Oriented x3, No Motor/Sensory Deficits, Normal Mood/Affect Results Lab Laboratory Tests 09/23/22 19:59: Glucometer 195H 09/24/22 05:28: White Blood Count 18.6H, Red Blood Count 4.01, Hemoglobin 10.9L, Hematocrit 33L, Mean Corpuscular Volume 83, Mean Corpuscular Hemoglobin 27, Mean Corpuscular Hemoglobin Concent 33, Red Cell Distribution Width 15.3H, Platelet Count 348, Mean Platelet Volume 11.2, Immature Granulocyte % (Auto) 1, Neutrophils (%) (Auto) 88H, Lymphocytes (%) (Auto) 6L, Monocytes (%) (Auto) 5, Eosinophils (%) (Auto) 0, Basophils (%) (Auto) 0, Neutrophils # (Auto) 16.2H, Lymphocytes # (Auto) 1.2, Monocytes # (Auto) 1.0, Eosinophils # (Auto) 0.0, Basophils # (Auto) 0.0, Immature Granulocyte # (Auto) 0.1, Sodium Level 141, Potassium Level 3.5L, Chloride Level 106, Carbon Dioxide Level 26, Anion Gap 9, Blood Urea Nitrogen 10, Creatinine 0.75, Estimat Glomerular Filtration Rate 91, BUN/Creatinine Ratio 13, Glucose Level 120H, Calcium Level 8.7, Corrected Calcium 9.0, Total Bilirubin 2.4H, Aspartate Amino Transf (AST/SGOT) 533H, Alanine Aminotransferase (ALT/SGPT) 514#H, Alkaline Phosphatase 214H, Total Protein 6.8, Albumin 3.6, Amylase Level 290H, Lipase 801H 09/24/22 10:49: Glucometer 102 Assessment/Plan Assessment/Plan Assessment/Plan Acute pancreatitis Hyperbilirubinemia Cholelithiasis DM, HTN Pt has acute pancreatitis which is most likely due to gallstones. Her amylase and lipase came way down today, her pain has improved but her Bilirubin went up. I think this confirms Gallstone Pancreatitis. Wound continue NPO, IV fluids, pain control and anti-emetics as needed, IV protonix and monitor labs. She will probably need her gallbladder removed while she is here, but must wait until pain is almost gone and her pancreatic enzymes are close to normal. She understood all of this and I told her hopefully tomorrow or Monday we could do the surgery. SYLVESETR GODINEZ DO Sep 24, 2022 15:20
[2022-09-24 16:29] VITALS: BP 125/61
[2022-09-24 19:34] VITALS: BP 131/61
[2022-09-24] MEDS: ACETAMINOPHEN 325 MG TABLET PO PRN (19:39)
[2022-09-24] MEDS ORDERED: DULO60CA59 PO (19:55)
[2022-09-24] MEDS ORDERED: DULoxetine 30 MG (CYMBALTA) CAP PO ONE (20:00)
[2022-09-25] VITALS (7 sets, daily range): BP systolic 123–164; BP diastolic 62–82
[2022-09-25] MEDS: NS IV 1000 ML 1,000 ML IV SCH ×4 (03:33→22:17)
[2022-09-25] MEDS: inSUlin ASPART (NovoLOG) 1 UNIT/0.01 ML (CHARGE PER UNIT) SC SCH ×4 (05:09→19:44)
[2022-09-25 06:29] LABS: BASOPHILS % (AUTO) 0 % (0-10); EOSINOPHILS % (AUTO) 0 % (0-10); HEMATOCRIT 34 % (35-52); HEMOGLOBIN 11.1 g/dL (11.5-16.0); LYMPHOCYTES # (AUTO) 1.2 10^3/uL (1.0-4.0); LYMPHOCYTES % (AUTO) 12 % (12-44); MEAN CORPUSCULAR HEMOGLOBIN 27 pg (25-34); MEAN CORPUSCULAR HGB CONC 33 g/dL (32-36); MEAN CORPUSCULAR VOLUME 84 fL (80-99); MEAN PLATELET VOLUME 11.6 fL (9.0-12.2); MONOCYTES # (AUTO) 0.5 10^3/uL (0.0-1.0); MONOCYTES % (AUTO) 5 % (0-12); NEUTROPHILS # (AUTO) 7.9 10^3/uL (1.8-7.8); NEUTROPHILS % (AUTO) 82 % (42-75); PLATELET COUNT 287 10^3/uL (130-400); WHITE BLOOD COUNT 9.7 10^3/uL (4.3-11.0)
--- NOTE | 2022-09-25 06:29 | Progress Note ---
Subjective Date Seen by a Provider: Sep 25, 2022 Time Seen by a Provider: 09:00 Subjective/Events-last exam Patient reports much improved abdominal pain Liver enzymes are much improved No fever Dr. Billingsley to decide when to perform cholecystectomy Had an allergic reaction to Zosyn so that was stopped yesterday so we will start Levaquin today Review of Systems General: Fatigue, Malaise Gastrointestinal: Nausea, Abdominal Pain Objective Exam Last Set of Vital Signs Vital Signs Date Time Temp Pulse Resp B/P (MAP) Pulse Ox O2 Delivery O2 Flow Rate FiO2 09/25/22 03:34 36.7 76 18 123/62 (82) 94 Room Air 09/24/22 08:53 0.00 09/23/22 20:16 21 Capillary Refill : I&O Intake and Output 09/25/22 00:00 Intake Total 2200 ml Output Total 375 ml Balance 1825 ml Intake Oral 0 ml IV Total 2200 ml Output Urine Total 375 ml # Voids 6 # Bowel Movements 1 General: Alert, Oriented X3, Cooperative, No Acute Distress Lungs: Clear to Auscultation, Normal Air Movement Heart: Regular Rate, Normal S1, Normal S2, No Murmurs Psych/Mental Status: Mental Status NL, Mood NL Results Lab Laboratory Tests 09/24/22 10:49: Glucometer 102 09/24/22 16:32: Glucometer 95 09/24/22 20:29: Glucometer 86 09/25/22 05:06: Glucometer 96 09/25/22 06:03: Assessment/Plan Assessment/Plan Assess & Plan/Chief Complaint Assessment: Acute abdominal pain due to acute pancreatitis with acute hepatitis Gallbladder disease suspicious for cholecystitis Diabetes Plan: Dr. Billingsley consult Pain control IV fluids PPI IV antibiotic changed to Levaquin GHISLAINE ROBISON DO Sep 25, 2022 06:29
[2022-09-25 06:54] LABS: ALBUMIN 3.5 GM/DL (3.2-4.5); CALCIUM 8.7 MG/DL (8.5-10.1); CREATININE SERUM 0.6 MG/DL (0.60-1.30); POTASSIUM 3.1 MMOL/L (3.6-5.0)
[2022-09-25] MEDS: SENNOSIDES 8.6 MG (SENOKOT) TAB PO SCH ×2 (08:21→19:44)
[2022-09-25] MEDS: DULoxetine 30 MG (CYMBALTA) CAP PO SCH (08:21)
[2022-09-25] MEDS: DOCUSATE SODIUM 100 MG (COLACE) CAP PO SCH ×2 (08:21→19:44)
[2022-09-25] MEDS: PANTOPRAZOLE 40 MG (PROTONIX) VIAL IV SCH (08:26)
[2022-09-25] MEDS: POTASSIUM CL 10MEQ/50ML IVPB 50 ML IV SCH ×3 (11:00→12:51)
--- NOTE | 2022-09-25 13:54 | Progress Note - Surgery ---
Subjective Time Seen by a Provider: 11:27 Subjective/Events-last exam Pt seen and examined, she states she basically has no pain and wants to eat. Review of Systems Pulmonary: No Dyspnea, No Cough Cardiovascular: No: Chest Pain, Palpitations Gastrointestinal: No: Nausea, Vomiting, Abdominal Pain Genitourinary: No Dysuria, No Frequency Objective Exam Vital Signs Date Time Temp Pulse Resp B/P (MAP) Pulse Ox O2 Delivery O2 Flow Rate FiO2 09/25/22 12:38 73 09/25/22 11:11 36.9 72 18 164/82 (109) 96 Room Air 09/25/22 08:00 Room Air 09/25/22 07:53 36.9 74 20 156/73 (100) 94 Room Air 09/25/22 07:00 72 09/25/22 03:34 36.7 76 18 123/62 (82) 94 Room Air 09/25/22 01:00 81 09/25/22 00:40 37.4 94 18 141/66 (91) 92 Room Air 09/24/22 21:00 Room Air 09/24/22 19:39 38.5 09/24/22 19:34 38.4 90 18 131/61 (84) 91 Room Air 09/24/22 19:32 Room Air 09/24/22 19:00 90 09/24/22 16:29 37.4 83 18 125/61 (82) 92 Room Air I & O 09/25/22 07:00 Intake Total 2100 ml Balance 2100 ml Capillary Refill : General Appearance: WD/WN, Mild Distress HEENT: PERRL/EOMI Respiratory: Lungs Clear, Normal Breath Sounds, No Accessory Muscle Use, No Respiratory Distress Cardiovascular: Regular Rate, Rhythm, No Murmur Gastrointestinal: soft, no organomegaly; No distended, No guarding; tenderness (with palpation of RUQ and subxyphoid), hernia (large incarcerated umbilical hernia) Extremity: No Calf Tenderness, No Pedal Edema Neurologic/Psychiatric: Alert, Oriented x3 Results Lab Laboratory Tests 09/24/22 16:32: Glucometer 95 09/24/22 20:29: Glucometer 86 09/25/22 05:06: Glucometer 96 09/25/22 06:03: White Blood Count 9.7, Red Blood Count 4.06, Hemoglobin 11.1L, Hematocrit 34L, Mean Corpuscular Volume 84, Mean Corpuscular Hemoglobin 27, Mean Corpuscular Hemoglobin Concent 33, Red Cell Distribution Width 15.3H, Platelet Count 287, Mean Platelet Volume 11.6, Immature Granulocyte % (Auto) 1, Neutrophils (%) (Auto) 82H, Lymphocytes (%) (Auto) 12, Monocytes (%) (Auto) 5, Eosinophils (%) (Auto) 0, Basophils (%) (Auto) 0, Neutrophils # (Auto) 7.9H, Lymphocytes # (Auto) 1.2, Monocytes # (Auto) 0.5, Eosinophils # (Auto) 0.0, Basophils # (Auto) 0.0, Immature Granulocyte # (Auto) 0.1, Sodium Level 138, Potassium Level 3.1L, Chloride Level 107, Carbon Dioxide Level 21, Anion Gap 10, Blood Urea Nitrogen 10, Creatinine 0.60, Estimat Glomerular Filtration Rate 103, BUN/Creatinine Ratio 17, Glucose Level 92, Calcium Level 8.7, Corrected Calcium 9.1, Magnesium Level 1.9, Total Bilirubin 3.0H, Aspartate Amino Transf (AST/SGOT) 149H, Alanine Aminotransferase (ALT/SGPT) 316H, Alkaline Phosphatase 233H, Total Protein 7.0, Albumin 3.5, Lipase 292H 09/25/22 10:50: Glucometer 82 Assessment/Plan Assessment/Plan Assessment/Plan Acute pancreatitis - almost resolved Hyperbilirubinemia - increased today Cholelithiasis DM, HTN Pt has acute pancreatitis which is most likely due to gallstones. Her lipase is almost down to normal and her pain is gone except with palpation. However, her Bilirubin went up again; confirming Gallstone Pancreatitis. Wound continue NPO, IV fluids, pain control and anti-emetics as needed, IV protonix and will schedule surgery for tomorrow. I went over risks and complications not limited to pain, bleeding, infection, scar, damage to bowel or bile ducts and need for further procedure. All questions answered to her satisfaction. Will get consent for Laparoscopic Cholecystectomy, with possible cholangiogram and all other indicated procedures. SYLVESTER GODINEZ DO Sep 25, 2022 13:54
[2022-09-26] VITALS (10 sets, daily range): BP systolic 113–156; BP diastolic 43–77
[2022-09-26] MEDS: NS IV 1000 ML 1,000 ML IV SCH ×2 (05:01→14:52)
[2022-09-26] MEDS: inSUlin ASPART (NovoLOG) 1 UNIT/0.01 ML (CHARGE PER UNIT) SC SCH ×3 (05:22→15:58)
--- NOTE | 2022-09-26 05:53 | Progress Note ---
Subjective Date Seen by a Provider: Sep 26, 2022 Time Seen by a Provider: 09:00 Subjective/Events-last exam Doing well No nausea Choly today Labs stable Review of Systems General: Fatigue, Malaise Gastrointestinal: Nausea Objective Exam Last Set of Vital Signs Vital Signs Date Time Temp Pulse Resp B/P (MAP) Pulse Ox O2 Delivery O2 Flow Rate FiO2 09/26/22 03:38 36.7 68 18 155/72 (99) 95 Room Air 09/24/22 08:53 0.00 09/23/22 20:16 21 Capillary Refill : I&O Intake and Output 09/25/22 23:59 Intake Total 1500 ml Balance 1500 ml Intake Oral 200 ml IV Total 1300 ml # Voids 9 # Bowel Movements 1 General: Alert, Oriented X3, Cooperative, No Acute Distress Lungs: Clear to Auscultation, Normal Air Movement Heart: Regular Rate, Normal S1, Normal S2, No Murmurs Psych/Mental Status: Mental Status NL, Mood NL Results Lab Laboratory Tests 09/25/22 06:03: White Blood Count 9.7, Red Blood Count 4.06, Hemoglobin 11.1L, Hematocrit 34L, Mean Corpuscular Volume 84, Mean Corpuscular Hemoglobin 27, Mean Corpuscular Hemoglobin Concent 33, Red Cell Distribution Width 15.3H, Platelet Count 287, Mean Platelet Volume 11.6, Immature Granulocyte % (Auto) 1, Neutrophils (%) (Auto) 82H, Lymphocytes (%) (Auto) 12, Monocytes (%) (Auto) 5, Eosinophils (%) (Auto) 0, Basophils (%) (Auto) 0, Neutrophils # (Auto) 7.9H, Lymphocytes # (Auto) 1.2, Monocytes # (Auto) 0.5, Eosinophils # (Auto) 0.0, Basophils # (Auto) 0.0, Immature Granulocyte # (Auto) 0.1, Sodium Level 138, Potassium Level 3.1L, Chloride Level 107, Carbon Dioxide Level 21, Anion Gap 10, Blood Urea Nitrogen 10, Creatinine 0.60, Estimat Glomerular Filtration Rate 103, BUN/Creatinine Ratio 17, Glucose Level 92, Calcium Level 8.7, Corrected Calcium 9.1, Magnesium Level 1.9, Total Bilirubin 3.0H, Aspartate Amino Transf (AST/SGOT) 149H, Alanine Aminotransferase (ALT/SGPT) 316H, Alkaline Phosphatase 233H, Total Protein 7.0, Albumin 3.5, Lipase 292H 09/25/22 10:50: Glucometer 82 09/25/22 15:35: Glucometer 106 09/25/22 19:57: Glucometer 101 09/26/22 05:15: Glucometer 101 Assessment/Plan Assessment/Plan Assess & Plan/Chief Complaint Assessment: Acute abdominal pain due to acute pancreatitis with acute hepatitis Gallbladder disease suspicious for cholecystitis Diabetes Plan: Dr. Billingsley consult Pain control IV fluids PPI IV antibiotic changed to Levaquin Choly today GHISLAINE ROBISON DO Sep 26, 2022 05:53
[2022-09-26 06:07] LABS: BASOPHILS % (AUTO) 0 % (0-10); EOSINOPHILS # (AUTO) 0.1 10^3/uL (0.0-0.3); EOSINOPHILS % (AUTO) 1 % (0-10); HEMATOCRIT 35 % (35-52); HEMOGLOBIN 11.5 g/dL (11.5-16.0); LYMPHOCYTES # (AUTO) 1.3 10^3/uL (1.0-4.0); LYMPHOCYTES % (AUTO) 15 % (12-44); MEAN CORPUSCULAR HEMOGLOBIN 27 pg (25-34); MEAN CORPUSCULAR HGB CONC 33 g/dL (32-36); MEAN CORPUSCULAR VOLUME 82 fL (80-99); MEAN PLATELET VOLUME 11.8 fL (9.0-12.2); MONOCYTES # (AUTO) 0.5 10^3/uL (0.0-1.0); MONOCYTES % (AUTO) 6 % (0-12); NEUTROPHILS # (AUTO) 6.9 10^3/uL (1.8-7.8); NEUTROPHILS % (AUTO) 77 % (42-75); PLATELET COUNT 323 10^3/uL (130-400); WHITE BLOOD COUNT 8.9 10^3/uL (4.3-11.0)
[2022-09-26 06:33] LABS: ALBUMIN 3.5 GM/DL (3.2-4.5); BILIRUBIN,TOTAL 1.3 MG/DL (0.1-1.0); CALCIUM 8.7 MG/DL (8.5-10.1); CREATININE SERUM 0.56 MG/DL (0.60-1.30); POTASSIUM 3.2 MMOL/L (3.6-5.0); TOTAL PROTEIN 7.1 GM/DL (6.4-8.2)
[2022-09-26] MEDS: PANTOPRAZOLE 40 MG (PROTONIX) VIAL IV SCH (09:18)
[2022-09-26] MEDS: DULoxetine 30 MG (CYMBALTA) CAP PO SCH (09:42)
[2022-09-26] MEDS: DOCUSATE SODIUM 100 MG (COLACE) CAP PO SCH (09:42)
[2022-09-26] MEDS: SENNOSIDES 8.6 MG (SENOKOT) TAB PO SCH (09:42)
[2022-09-26] MEDS ORDERED: ESOM40CA52 PO (10:14)
[2022-09-26] MEDS ORDERED: CLOT15CR28 TOP (10:14)
[2022-09-26] MEDS ORDERED: METF-397 PO (10:14)
[2022-09-26] MEDS ORDERED: LISI10TA25 PO (10:14)
[2022-09-26] MEDS ORDERED: ACET-2267 PO (10:14)
[2022-09-26] MEDS ORDERED: INSU100V6 SQ (10:14)
[2022-09-26] MEDS ORDERED: DULO60CA59 PO (10:14)
[2022-09-26] MEDS ORDERED: MELO15TA39 PO (10:14)
[2022-09-26] MEDS ORDERED: DULA1.5P2 SQ (10:14)
[2022-09-26] MEDS ORDERED: IBUP-1780 PO (10:14)
[2022-09-26] MEDS ORDERED: ATOR20TA66 PO (10:14)
[2022-09-26] MEDS ORDERED: FEXO180T84 PO (10:15)
[2022-09-26] MEDS ORDERED: BUP/EPI 0.5% 1:200,000 (SENSORCAINE) 30 ML VIAL ONE (11:03)
[2022-09-26] MEDS ORDERED: ONDANSETRON 4 MG/2 ML (SDV) Z0FRAN ONE ×3 (12:01→14:17)
[2022-09-26] MEDS ORDERED: LIDOCAINE PF 2% 5 ML (XYLOCAINE) VIAL ONE (12:01)
[2022-09-26] MEDS ORDERED: proPOfol 200 MG/20 ML (DIPRIVAN) VIAL IV ONE (12:01)
[2022-09-26] MEDS ORDERED: fentaNYL INJ 100 MCG/2 ML AMP ONE (12:01)
[2022-09-26] MEDS ORDERED: ROCURONIUM 50 MG/5 ML (ZEMURON) VIAL IV ONE (12:01)
[2022-09-26] MEDS ORDERED: MIDAZOLAM 2 MG/2 ML (VERSED) VIAL ONE (12:03)
[2022-09-26] MEDS ORDERED: IOPAMIDOL 61% 30 ML (ISOVUE 300) VIAL DUCT ONE (12:30)
[2022-09-26] MEDS ORDERED: LACTATED RINGERS 1,000 ML IV PRN (12:45)
--- NOTE | 2022-09-26 12:47 | Progress Note - Surgery ---
Subjective Time Seen by a Provider: 12:43 Subjective/Events-last exam Pt seen and asked her if she had any questions regarding procedure; she said no. Objective Exam Vital Signs Date Time Temp Pulse Resp B/P (MAP) Pulse Ox O2 Delivery O2 Flow Rate FiO2 09/26/22 12:01 36.6 65 18 154/77 (102) 96 Room Air 09/26/22 09:00 Room Air 09/26/22 07:30 36.8 64 18 148/70 (96) 96 Room Air 09/26/22 07:00 69 09/26/22 03:38 36.7 68 18 155/72 (99) 95 Room Air 09/26/22 01:00 68 09/25/22 23:14 37.2 68 18 155/69 (97) 99 Room Air 09/25/22 20:44 Room Air 09/25/22 19:37 Room Air 09/25/22 19:30 37.1 69 20 148/73 (98) 96 Room Air 09/25/22 19:00 70 09/25/22 16:01 36.5 70 20 163/72 (102) 96 Room Air I & O 09/26/22 07:00 Intake Total 2500 ml Balance 2500 ml Capillary Refill : General Appearance: No Apparent Distress, WD/WN HEENT: PERRL/EOMI Respiratory: Lungs Clear, Normal Breath Sounds, No Accessory Muscle Use, No Respiratory Distress Cardiovascular: Regular Rate, Rhythm, No Murmur Gastrointestinal: normal bowel sounds, soft, tenderness (Bilateral upper and epigastric region) Neurologic/Psychiatric: Alert, Oriented x3 Results Lab Laboratory Tests 09/25/22 15:35: Glucometer 106 09/25/22 19:57: Glucometer 101 09/26/22 05:07: White Blood Count 8.9, Red Blood Count 4.27, Hemoglobin 11.5, Hematocrit 35, Mean Corpuscular Volume 82, Mean Corpuscular Hemoglobin 27, Mean Corpuscular Hemoglobin Concent 33, Red Cell Distribution Width 14.6H, Platelet Count 323, Mean Platelet Volume 11.8, Immature Granulocyte % (Auto) 0, Neutrophils (%) (Auto) 77H, Lymphocytes (%) (Auto) 15, Monocytes (%) (Auto) 6, Eosinophils (%) (Auto) 1, Basophils (%) (Auto) 0, Neutrophils # (Auto) 6.9, Lymphocytes # (Auto) 1.3, Monocytes # (Auto) 0.5, Eosinophils # (Auto) 0.1, Basophils # (Auto) 0.0, Immature Granulocyte # (Auto) 0.0, Sodium Level 139, Potassium Level 3.2L, Chloride Level 107, Carbon Dioxide Level 21, Anion Gap 11, Blood Urea Nitrogen 6L, Creatinine 0.56L, Estimat Glomerular Filtration Rate 104, BUN/Creatinine Ratio 11, Glucose Level 96, Calcium Level 8.7, Corrected Calcium 9.1, Total Bilirubin 1.3H, Aspartate Amino Transf (AST/SGOT) 63H, Alanine Aminotransferase (ALT/SGPT) 217H, Alkaline Phosphatase 238H, Total Protein 7.1, Albumin 3.5, Lipase 150H 09/26/22 05:15: Glucometer 101 09/26/22 11:15: Glucometer 79 Assessment/Plan Assessment/Plan Assessment/Plan Acute pancreatitis - almost resolved Hyperbilirubinemia - decreased today Cholelithiasis DM, HTN Pt has acute pancreatitis which is most likely due to gallstones. Her Bilirubin went down she has Gallstone Pancreatitis. To OR now for surgery. I went over risks and complications not limited to pain, bleeding, infection, scar, damage to bowel or bile ducts and need for further procedure. All questions answered to her satisfaction. Will get consent for Laparoscopic Cholecystectomy, with possible cholangiogram and all other indicated procedures. SYLVESTER GODINEZ DO Sep 26, 2022 12:47
[2022-09-26] MEDS ORDERED: BUP/EPI 0.5% 1:200,000 (SENSORCAINE) 30 ML VIAL INJ ONE (13:09)
[2022-09-26] MEDS ORDERED: SEVOFLURANE (ULTANE) 15 ML INHAL SOLN ONE (13:28)
[2022-09-26 13:39] LABS: HEPATITIS C ANTIBODY C Non-Reactive (Non-Reactive)
--- NOTE | 2022-09-26 13:52 | Anesthesia-General Post-Op ---
General Patient Condition Mental Status/LOC: Same as Preop Cardiovascular: Satisfactory Nausea/Vomiting: Absent Respiratory: Satisfactory Pain: Controlled Complications: Absent Post Op Complications Complications None Follow Up Care/Instructions Patient Instructions None needed. Anesthesia/Patient Condition Patient Condition Patient is doing well, no complaints, stable vital signs, no apparent adverse anesthesia problems. No complications reported per nursing. RICARDO TURNER CRNA Sep 26, 2022 13:52
[2022-09-26] MEDS ORDERED: MEPERIDINE (DEMEROL) INJ 50 MG/ML IVP ONE (14:00)
[2022-09-26] MEDS ORDERED: morphine INJ 10 MG/ML 1ML (SYR OR VIAL) IVP ONE (14:00)
[2022-09-26] MEDS ORDERED: morphine INJ 10 MG/ML 1ML (SYR OR VIAL) ONE (14:03)
[2022-09-26] MEDS: ONDANSETRON 4 MG/2 ML (SDV) Z0FRAN IVP PRN ×2 (14:04→14:19)
--- NOTE | 2022-09-26 14:20 | Progress Note-Post Operative ---
Post-Operative Progess Note Surgeon (s)/Sizing Machine And Drier Operator (s) Surgeon SYLVESTER GODINEZ DO Sizing Machine And Drier Operator: Graham Pre-Operative Diagnosis Cholecystitis with Cholelthiasis, Gallstone pancreatitis Post-Operative Diagnosis same, adhesions midline Procedure & Operative Findings Date of Procedure 09/26/22 Procedure Performed/Findings PROCEDURE: Laparoscopic cholecystectomy with intraoperative cholangiogram. COMPLICATIONS: None. PROCEDURE: The patient was taken to the operating suite and was prepped and draped in sterile fashion. A surgical pause was performed. Just superior to the umbilicus, a 12 mm incision was made. Dissection was taken down to the fascia, which was then scored and grasped with a Dada and the abdomen was then entered. An 0 Vicryl suture was placed in a [id number] fashion and a Mills trocar was placed and secured. Pneumoperitoneum was achieved. A 5mm tro[address] in the subxyphoid and 2 in the right upper quadrant. The gallbladder was then grasped and elevated in the superior direction. Then grasped at Cabrera's pouch and pulled in the infero-lateral direction. The cystic duct and cystic artery were then dissected out. Clip was placed on the distal portion of the cystic duct which was then partially transected. An arrow catheter was inserted into the duct. The cholangiogram was then performed. No filling defects and contrast made its way into the duodenum. Catheter removed. Clips were placed on proximal portion of the cystic duct and then the duct was then transected. Clips were placed along the proximal and distal portion of the cystic artery which was then transected. Hook cautery was used to dissect the gallbladder from the gallbladder fossa achieving hemostasis. The gallbladder was placed in an Endobag and removed through the 12 mm trocar site. The abdomen was then reinspected there were some adhesions midline and picture taken. Copious amounts of irrigation were used to irrigate the abdomen and there were no signs of active bleeding. Hemostasis had been achieved. The 12 mm fascial defect was then closed with 0 Vicryl suture that had been placed in a [id number] fashion. The abdomen was then desufflated, the trocars were removed. The abdomen was then washed and dried. The skin was then closed using 4-0 Monocryl in a subcuticular fashion. The abdomen was washed and dried and Skin Affix was place over incisions. Patient tolerated the procedure well without any complications and was taken to the recovery room in stable condition. Dr. Stevenson assisted on this case helping to make incisions, close incisions, identify anatomy and hold anatomy out of the way. Anesthesia Type GET Estimated Blood Loss Estimated blood loss (mL): scant Specimens/Packing Specimens Removed GB and contents SYLVESTER GODINEZ DO Sep 26, 2022 14:20
--- NOTE | 2022-09-26 14:21 | Discharge Summary ---
Diagnosis/Chief Complaint Date of Admission Sep 23, 2022 at 18:42 Date of Discharge Discharge Date: Sep 26, 2022 Discharge Diagnosis Assessment: Acute abdominal pain due to acute pancreatitis with acute hepatitis Gallbladder disease suspicious for cholecystitis Diabetes Discharge Summary Discharge Physical Examination Allergies: Coded Allergies: piperacillin (Verified Allergy, Intermediate, 09/25/22) Swelling and redness of hands and itching tazobactam (Verified Allergy, Intermediate, 09/25/22) Swelling and redness of hands and itching lovastatin (Unverified Allergy, Unknown, 08/05/15) Vitals & I&Os Vital Signs Date Time Temp Pulse Resp B/P (MAP) Pulse Ox O2 Delivery O2 Flow Rate FiO2 09/26/22 15:20 36.7 66 19 156/74 (101) 95 Room Air 09/26/22 14:00 7.00 09/23/22 20:16 21 General Appearance: Alert, Oriented X3, Cooperative Respiratory: Clear to Auscultation Cardiovascular: Regular Rate Psych/Mental Status: Mental Status NL Hospital Course Was the Problem List Reviewed?: Yes Hospital course: Patient had a lengthy hospital course after she was admitted for acute abdominal pain with elevated liver enzymes and pancreatitis. Patient was found to have evidence of cholecystitis so antibiotics were empirically placed. She did have an allergic reaction to Zosyn after several doses so that was changed to Levaquin. Liver enzymes improved white count normalized blood sugars were managed and patient ultimately had an uneventful cholecystectomy by Dr. Billingsley and was discharged in improved condition. Labs (last 24 hrs) Laboratory Tests 09/23/22 14:26: Urine Color YELLOW, Urine Clarity CLEAR, Urine pH 6.0, Urine Specific [place] 1.025H, Urine Protein NEGATIVE, Urine Glucose (UA) NEGATIVE, Urine Ketones NEGATIVE, Urine Nitrite NEGATIVE, Urine Bilirubin 1+H, Urine Urobilinogen 2.0, Urine Leukocyte Esterase NEGATIVE, Urine RBC (Auto) NEGATIVE, Urine RBC RARE, Urine WBC NONE, Urine Squamous Epithelial Cells 0-2, Urine Crystals NONE, Urine Bacteria TRACE, Urine Casts NONE, Urine Mucus SMALLH, Urine Culture Indicated NO 09/23/22 14:30: White Blood Count 14.1H, Red Blood Count 4.67, Hemoglobin 12.7, Hematocrit 39, Mean Corpuscular Volume 84, Mean Corpuscular Hemoglobin 27, Mean Corpuscular Hemoglobin Concent 32, Red Cell Distribution Width 15.0H, Platelet Count 403H, Mean Platelet Volume 10.7, Immature Granulocyte % (Auto) 0, Neutrophils (%) (Auto) 80H, Lymphocytes (%) (Auto) 14, Monocytes (%) (Auto) 5, Eosinophils (%) (Auto) 1, Basophils (%) (Auto) 0, Neutrophils # (Auto) 11.3H, Lymphocytes # (Auto) 2.0, Monocytes # (Auto) 0.6, Eosinophils # (Auto) 0.1, Basophils # (Auto) 0.1, Immature Granulocyte # (Auto) 0.1, Neutrophils % (Manual) 72, Lymphocytes % (Manual) 16, Monocytes % (Manual) 4, Eosinophils % (Manual) 1, Band Neutrophils 7, Platelet Estimate FEW LARGE PLTS NOTED, Prothrombin Time 12.4, INR Comment 0.9, Sodium Level 142, Potassium Level 3.6, Chloride Level 102, Carbon Dioxide Level 30, Anion Gap 10, Blood Urea Nitrogen 10, Creatinine 0.80, Estimat Glomerular Filtration Rate 84, BUN/Creatinine Ratio 13, Glucose Level 153H, Mean Blood Glucose 88, Hemoglobin A1c 4.7, Calcium Level 10.1, Corrected Calcium , Total Bilirubin 0.9, Gamma Glutamyl Transpeptidase 1066H, Aspartate Amino Transf (AST/SGOT) 329H, Alanine Aminotransferase (ALT/SGPT) 260H, Alkaline Phosphatase 252H, Lactate Dehydrogenase 466H, Total Creatine Kinase 213H, Total Protein 8.8H , Albumin 4.6H, Triglycerides Level 76, Cholesterol Level 161, LDL Cholesterol Direct 77, VLDL Cholesterol 15, HDL Cholesterol 65H, Amylase Level 1368H, Lipase 19807B, Hepatitis A IgM Antibody Non-Reactive, Hepatitis B Surface Antigen Non- Reactive, Hepatitis B Core IgM Antibody Non-Reactive, Hepatitis C Antibody Non- Reactive 09/23/22 19:59: Glucometer 195H 09/24/22 05:28: White Blood Count 18.6H, Red Blood Count 4.01, Hemoglobin 10.9L, Hematocrit 33L, Mean Corpuscular Volume 83, Mean Corpuscular Hemoglobin 27, Mean Corpuscular Hemoglobin Concent 33, Red Cell Distribution Width 15.3H, Platelet Count 348, Mean Platelet Volume 11.2, Immature Granulocyte % (Auto) 1, Neutrophils (%) (Auto) 88H, Lymphocytes (%) (Auto) 6L, Monocytes (%) (Auto) 5, Eosinophils (%) (Auto) 0, Basophils (%) (Auto) 0, Neutrophils # (Auto) 16.2H, Lymphocytes # (Auto) 1.2, Monocytes # (Auto) 1.0, Eosinophils # (Auto) 0.0, Basophils # (Auto) 0.0, Immature Granulocyte # (Auto) 0.1, Sodium Level 141, Potassium Level 3.5L, Chloride Level 106, Carbon Dioxide Level 26, Anion Gap 9, Blood Urea Nitrogen 10, Creatinine 0.75, Estimat Glomerular Filtration Rate 91, BUN/Creatinine Ratio 13, Glucose Level 120H, Calcium Level 8.7, Corrected Calcium 9.0, Total Bilirubin 2.4H, Aspartate Amino Transf (AST/SGOT) 533H, Alanine Aminotransferase (ALT/SGPT) 514#H, Alkaline Phosphatase 214H, Total Protein 6.8, Albumin 3.6, Amylase Level 290H, Lipase 801H 09/24/22 10:49: Glucometer 102 09/24/22 16:32: Glucometer 95 09/24/22 20:29: Glucometer 86 09/25/22 05:06: Glucometer 96 09/25/22 06:03: White Blood Count 9.7, Red Blood Count 4.06, Hemoglobin 11.1L, Hematocrit 34L, Mean Corpuscular Volume 84, Mean Corpuscular Hemoglobin 27, Mean Corpuscular Hemoglobin Concent 33, Red Cell Distribution Width 15.3H, Platelet Count 287, Mean Platelet Volume 11.6, Immature Granulocyte % (Auto) 1, Neutrophils (%) (Auto) 82H, Lymphocytes (%) (Auto) 12, Monocytes (%) (Auto) 5, Eosinophils (%) (Auto) 0, Basophils (%) (Auto) 0, Neutrophils # (Auto) 7.9H, Lymphocytes # (Auto) 1.2, Monocytes # (Auto) 0.5, Eosinophils # (Auto) 0.0, Basophils # (Auto) 0.0, Immature Granulocyte # (Auto) 0.1, Sodium Level 138, Potassium Level 3.1L, Chloride Level 107, Carbon Dioxide Level 21, Anion Gap 10, Blood Urea Nitrogen 10, Creatinine 0.60, Estimat Glomerular Filtration Rate 103, BUN/Creatinine Ratio 17, Glucose Level 92, Calcium Level 8.7, Corrected Calcium 9.1, Magnesium Level 1.9, Total Bilirubin 3.0H, Aspartate Amino Transf (AST/SGOT) 149H, Alanine Aminotransferase (ALT/SGPT) 316H, Alkaline Phosphatase 233H, Total Protein 7.0, Albumin 3.5, Lipase 292H 09/25/22 10:50: Glucometer 82 09/25/22 15:35: Glucometer 106 09/25/22 19:57: Glucometer 101 09/26/22 05:07: White Blood Count 8.9, Red Blood Count 4.27, Hemoglobin 11.5, Hematocrit 35, Mean Corpuscular Volume 82, Mean Corpuscular Hemoglobin 27, Mean Corpuscular Hemoglobin Concent 33, Red Cell Distribution Width 14.6H, Platelet Count 323, Mean Platelet Volume 11.8, Immature Granulocyte % (Auto) 0, Neutrophils (%) (Auto) 77H, Lymphocytes (%) (Auto) 15, Monocytes (%) (Auto) 6, Eosinophils (%) (Auto) 1, Basophils (%) (Auto) 0, Neutrophils # (Auto) 6.9, Lymphocytes # (Auto) 1.3, Monocytes # (Auto) 0.5, Eosinophils # (Auto) 0.1, Basophils # (Auto) 0.0, Immature Granulocyte # (Auto) 0.0, Sodium Level 139, Potassium Level 3.2L, Chloride Level 107, Carbon Dioxide Level 21, Anion Gap 11, Blood Urea Nitrogen 6L, Creatinine 0.56L, Estimat Glomerular Filtration Rate 104, BUN/Creatinine Ratio 11, Glucose Level 96, Calcium Level 8.7, Corrected Calcium 9.1, Total Bilirubin 1.3H, Aspartate Amino Transf (AST/SGOT) 63H, Alanine Aminotransferase (ALT/SGPT) 217H, Alkaline Phosphatase 238H, Total Protein 7.1, Albumin 3.5, Lipase 150H 09/26/22 05:15: Glucometer 101 09/26/22 11:15: Glucometer 79 09/26/22 15:19: Glucometer 119H Pending Labs Laboratory Tests 09/23/22 14:26: Urine Color YELLOW, Urine Clarity CLEAR, Urine pH 6.0, Urine Specific [place] 1.025, Urine Protein NEGATIVE, Urine Glucose (UA) NEGATIVE, Urine Ketones NEGATIVE, Urine Nitrite NEGATIVE, Urine Bilirubin 1+, Urine Urobilinogen 2.0, Urine Leukocyte Esterase NEGATIVE, Urine RBC (Auto) NEGATIVE, Urine RBC RARE, Urine WBC NONE, Urine Squamous Epithelial Cells 0-2, Urine Crystals NONE, Urine Bacteria TRACE, Urine Casts NONE, Urine Mucus SMALL, Urine Culture Indicated NO 09/23/22 14:30: White Blood Count 14.1, Red Blood Count 4.67, Hemoglobin 12.7, Hematocrit 39, Mean Corpuscular Volume 84, Mean Corpuscular Hemoglobin 27, Mean Corpuscular Hemoglobin Concent 32, Red Cell Distribution Width 15.0, Platelet Count 403, Mean Platelet Volume 10.7, Immature Granulocyte % (Auto) 0, Neutrophils (%) (Auto) 80, Lymphocytes (%) (Auto) 14, Monocytes (%) (Auto) 5, Eosinophils (%) (Auto) 1, Basophils (%) (Auto) 0, Neutrophils # (Auto) 11.3, Lymphocytes # (Auto) 2.0, Monocytes # (Auto) 0.6, Eosinophils # (Auto) 0.1, Basophils # (Auto) 0.1, Immature Granulocyte # (Auto) 0.1, Neutrophils % (Manual) 72, Lymphocytes % (Manual) 16, Monocytes % (Manual) 4, Eosinophils % (Manual) 1, Band Neutrophils 7, Platelet Estimate FEW LARGE PLTS NOTED, Prothrombin Time 12.4, INR Comment 0.9, Sodium Level 142, Potassium Level 3.6, Chloride Level 102, Carbon Dioxide Level 30, Anion Gap 10, Blood Urea Nitrogen 10, Creatinine 0.80, Estimat Glomerular Filtration Rate 84, BUN/Creatinine Ratio 13, Glucose Level 153, Mean Blood Glucose 88, Hemoglobin A1c 4.7, Calcium Level 10.1, Corrected Calcium , Total Bilirubin 0.9, Gamma Glutamyl Transpeptidase 1066, Aspartate Amino Transf (AST/SGOT) 329, Alanine Aminotransferase (ALT/SGPT) 260, Alkaline Phosphatase 252, Lactate Dehydrogenase 466, Total Creatine Kinase 213, Total Protein 8.8, Albumin 4.6, Triglycerides Level 76, Cholesterol Level 161, LDL Cholesterol Direct 77, VLDL Cholesterol 15, HDL Cholesterol 65, Amylase Level 1368, Lipase 38068, Hepatitis A IgM Antibody Non-Reactive, Hepatitis B Surface Antigen Non- Reactive, Hepatitis B Core IgM Antibody Non-Reactive, Hepatitis C Antibody Non- Reactive 09/23/22 19:59: Glucometer 195 09/24/22 05:28: White Blood Count 18.6, Red Blood Count 4.01, Hemoglobin 10.9, Hematocrit 33, Mean Corpuscular Volume 83, Mean Corpuscular Hemoglobin 27, Mean Corpuscular Hemoglobin Concent 33, Red Cell Distribution Width 15.3, Platelet Count 348, Mean Platelet Volume 11.2, Immature Granulocyte % (Auto) 1, Neutrophils (%) (Auto) 88, Lymphocytes (%) (Auto) 6, Monocytes (%) (Auto) 5, Eosinophils (%) ( Auto) 0, Basophils (%) (Auto) 0, Neutrophils # (Auto) 16.2, Lymphocytes # (Auto) 1.2, Monocytes # (Auto) 1.0, Eosinophils # (Auto) 0.0, Basophils # (Auto) 0.0, Immature Granulocyte # (Auto) 0.1, Sodium Level 141, Potassium Level 3.5, Chloride Level 106, Carbon Dioxide Level 26, Anion Gap 9, Blood Urea Nitrogen 10, Creatinine 0.75, Estimat Glomerular Filtration Rate 91, BUN/Creatinine Ratio 13, Glucose Level 120, Calcium Level 8.7, Corrected Calcium 9.0, Total Bilirubin 2.4, Aspartate Amino Transf (AST/SGOT) 533, Alanine Aminotransferase (ALT/SGPT) 514, Alkaline Phosphatase 214, Total Protein 6.8, Albumin 3.6, Amylase Level 290, Lipase 801 09/24/22 10:49: Glucometer 102 09/24/22 16:32: Glucometer 95 09/24/22 20:29: Glucometer 86 09/25/22 05:06: Glucometer 96 09/25/22 06:03: White Blood Count 9.7, Red Blood Count 4.06, Hemoglobin 11.1, Hematocrit 34, Mean Corpuscular Volume 84, Mean Corpuscular Hemoglobin 27, Mean Corpuscular Hemoglobin Concent 33, Red Cell Distribution Width 15.3, Platelet Count 287, Mean Platelet Volume 11.6, Immature Granulocyte % (Auto) 1, Neutrophils (%) (Auto) 82, Lymphocytes (%) (Auto) 12, Monocytes (%) (Auto) 5, Eosinophils (%) (Auto) 0, Basophils (%) (Auto) 0, Neutrophils # (Auto) 7.9, Lymphocytes # (Auto) 1.2, Monocytes # (Auto) 0.5, Eosinophils # (Auto) 0.0, Basophils # (Auto) 0.0, Immature Granulocyte # (Auto) 0.1, Sodium Level 138, Potassium Level 3.1, Chloride Level 107, Carbon Dioxide Level 21, Anion Gap 10, Blood Urea Nitrogen 10, Creatinine 0.60, Estimat Glomerular Filtration Rate 103, BUN/Creatinine Ratio 17, Glucose Level 92, Calcium Level 8.7, Corrected Calcium 9.1, Magnesium Level 1.9, Total Bilirubin 3.0, Aspartate Amino Transf (AST/SGOT) 149, Alanine Aminotransferase (ALT/SGPT) 316, Alkaline Phosphatase 233, Total Protein 7.0, Albumin 3.5, Lipase 292 09/25/22 10:50: Glucometer 82 09/25/22 15:35: Glucometer 106 09/25/22 19:57: Glucometer 101 09/26/22 05:07: White Blood Count 8.9, Red Blood Count 4.27, Hemoglobin 11.5, Hematocrit 35, Mean Corpuscular Volume 82, Mean Corpuscular Hemoglobin 27, Mean Corpuscular Hemoglobin Concent 33, Red Cell Distribution Width 14.6, Platelet Count 323, Mean Platelet Volume 11.8, Immature Granulocyte % (Auto) 0, Neutrophils (%) (Auto) 77, Lymphocytes (%) (Auto) 15, Monocytes (%) (Auto) 6, Eosinophils (%) (Auto) 1, Basophils (%) (Auto) 0, Neutrophils # (Auto) 6.9, Lymphocytes # (Auto) 1.3, Monocytes # (Auto) 0.5, Eosinophils # (Auto) 0.1, Basophils # (Auto) 0.0, Immature Granulocyte # (Auto) 0.0, Sodium Level 139, Potassium Level 3.2, Chloride Level 107, Carbon Dioxide Level 21, Anion Gap 11, Blood Urea Nitrogen 6, Creatinine 0.56, Estimat Glomerular Filtration Rate 104, BUN/Creatinine Ratio 11, Glucose Level 96, Calcium Level 8.7, Corrected Calcium 9.1, Total Bilirubin 1.3, Aspartate Amino Transf (AST/SGOT) 63, Alanine Aminotransferase (ALT/SGPT) 217, Alkaline Phosphatase 238, Total Protein 7.1, Albumin 3.5, Lipase 150 09/26/22 05:15: Glucometer 101 09/26/22 11:15: Glucometer 79 09/26/22 15:19: Glucometer 119 Discharge Home Medications: Active Scripts Active Hydrocodone-Acetamin 5-325 mg (Hydrocodone/Acetaminophen) 5 Mg-325 Mg Tablet 1 Tab PO Q8H PRN Reported Dena Allergy (Fexofenadine HCl) 180 Mg Tablet 180 Mg PO DAILY PRN Tylenol Extra Strength (Acetaminophen) 500 Mg Tablet 1,000 Mg PO Q8H PRN TAKES 2 (500MG) TABS Clotrimazole 1 % Cream..g. 1 Applic TOP DAILY Meloxicam 15 Mg Tablet 15 Mg PO DAILY Trulicity (Dulaglutide) 1.5 Mg/0.5 Ml Pen.injctr 1.5 Mg SQ MONDAY Lantus (Insulin Glargine,Hum.rec.anlog) 100 Unit/Ml Vial 46 Units SQ DAILY Duloxetine HCl 60 Mg Capsule.dr 60 Mg PO DAILY Esomeprazole Magnesium 40 Mg Capsule.dr 40 Mg PO 1200 Atorvastatin Calcium 20 Mg Tablet 20 Mg PO DAILY Metformin HCl 500 Mg Tablet 500 Mg PO BID Ibuprofen 800 Mg Tablet 800 Mg PO BID PRN Lisinopril 10 Mg Tablet 10 Mg PO DAILY Instructions to patient/family Please see electronic discharge instructions given to patient. GHISLAINE ROBISON DO Sep 26, 2022 14:21
--- NOTE | 2022-09-26 15:59 | Discharge Inst-Surgical ---
Discharge Inst-Surgical Depart Medication/Instructions New, Converted or Re-Newed RX: Transmitted to Pharmacy Patient Instructions Follow up Appt: Make appointment for 1 week. [phone] Instructions: No lifting greater than 20 pounds. No strenuous activity. May shower in 24 hours, no tub bath or soaking. Use incentive spirometer at home as directed. No Smoking Skin/Wound Care: May remove bandages in am. You need to leave the Dermabond on incision it will fall off on it's own. Symptoms to Report: Appetite Changes, Extremity Discoloration, Numbness/Tingling, Swelling Increased, Bleeding Excessive, Eyesight Changes, Pain Increased, Urine Color Change, Constipation(Persistent), Fever over 101 degree F, Pain/Pressure in chest, Urinating Difficulty, Cough Up/Vomit Blood, Heart Beat Irreg/Pounding, Pain/Pressure in jaw, Cramps in feet or legs, Lightheadedness, Pain/Pressure in shoulder, Diarrhea(Persistent), Memory Changes Suddenly, Questions/Concerns, Weight gain consecutive days, Dizziness/Fainting, Nausea/Vomiting, Shortness of Breath, Weight gain over 2 pounds If questions or concerns contact your physician Or seek help at emergency department. Activity Activity as Tolerated: Yes Activity Instructions: Avoid Stress to Incision Driving Instructions: No Driving/Refer to Diet Discharge Diet: Avoid Fatty Foods, Low Fat/Low Cholesterol Diet After 24 Hours: Clear Liquid if Nauseous If Any Problems/Questions/Issu: Contact Your Physician, Go to Emergency Room Skin/Wound Care Infection Signs and Symptoms: Increased Redness, Foul Odor of Wound, Increased Drainage, Skin Itchy or Has a Rash, Increased Swelling, Temperature Above 101 F Bathing Instructions: Shower Stitches/[place]/Dermabond Dis: Dermabond SYLVESTER GODINEZ DO Sep 26, 2022 15:59
[2022-09-26] MEDS ORDERED: ACHD5005 PO (16:03)
[2022-09-26] MEDS: ACETAMINOPHEN 325 MG TABLET PO PRN (18:36)
--- NOTE | 2022-09-28 11:18 | Diagnostic Imaging Report ---
INDICATION: Fluoroscopy for intraoperative cholangiogram. Fluoroscopy was provided during intraoperative cholangiogram. 16 seconds of fluoroscopic time was utilized. 76 images were obtained demonstrating contrast being injected via the cystic duct remnant. Intrahepatic and extrahepatic bile ducts are normal in caliber. No filling defects are seen. Contrast flows into the duodenum. IMPRESSION: Fluoroscopy during intraoperative cholangiogram. Dictated by: Dictated on workstation # [id number]
== END 2022-09-26 14:20 | disposition home or self-care (01) ==
LOC: EDUNIT# 14:18 → ER 14:21 → 4TH 18:25 → UNDOADMOB 18:42 → UNDODISOB 09-26 14:20
PROVIDERS: ADMIT Internal Medicine; ATTEND Internal Medicine
DX: K80.12 Calculus of gallbladder with acute and chronic cholecystitis without obstruction (principal); K85.10 Biliary acute pancreatitis without necrosis or infection; K66.0 Peritoneal adhesions (postprocedural) (postinfection); K21.9 Gastro-esophageal reflux disease without esophagitis; K75.9 Inflammatory liver disease, unspecified; D17.71 Benign lipomatous neoplasm of kidney; E11.9 Type 2 diabetes mellitus without complications; E80.6 Other disorders of bilirubin metabolism; I10 Essential (primary) hypertension; Z79.899 Other long term (current) drug therapy; Z79.84 Long term (current) use of oral hypoglycemic drugs; Z79.4 Long term (current) use of insulin
CPT/HCPCS: 47563; 74177; 76000; 76705; 80053 ×4; 80061; 80074; 81000; 82150 ×2; 82550; 82947 ×4; 82977; 83036; 83615; 83690 ×4; 83735; 85007; 85025 ×3; 85027; 85610; 88304; 94760; 96361 ×2; 96366 ×3; 96374; 96375 ×3; 96376 ×3; 99284; G0378; 36415